=== PATIENT | male | born 1945 | race Caucasian/White ===

== ENCOUNTER 2016-09-01 10:23 | Inpatient (IN) | payer MEDICARE ==
[~2016-09-01] VITALS: Ht 172.7 cm; Wt 61.4 kg
[~2016-09-01 10:23] MED LIST: /PRAV20TA PO; ASPI81TA85 PO; ATEN25TA PO; CALC500C2 PO; COZA100T2 PO; GLUC1VL SC; GLUC4GMTAB PO; HUMA100I SC; INSULANT SC; LEVO100T4 PO; LEVO50TA7 PO; LOMO2.5T PO; LOMOTA PO; LOSA100T36 PO; PRED1TAB32 PO; TENO50TA PO; TUMS500C PO; TYLE325T5 PO; VITA200015 PO; VITA500C24 PO; VITAD1000T PO; VITMTA PO; ZINC220T2 PO; [UNRECOGNIZED DRUG - CODE] PO
[2016-09-01 12:50] VITALS: BP 163/77
[2016-09-01] MEDS ORDERED: CO Q100C10 PO (13:25)
[2016-09-01] MEDS ORDERED: CIPR500T89 PO (13:25)
[2016-09-01] MEDS ORDERED: VITMTA PO (13:25)
[2016-09-01] MEDS ORDERED: ASPI81TA13 PO (13:25)
[2016-09-01] MEDS ORDERED: LANTINJ4 SC (13:25)
[2016-09-01] MEDS ORDERED: ATEN100T PO (13:25)
[2016-09-01] MEDS ORDERED: CALC12502 PO (13:25)
[2016-09-01] MEDS ORDERED: VITA30004 PO (13:25)
[2016-09-01] MEDS ORDERED: PLAV75TA38 PO (13:25)
[2016-09-01] MEDS ORDERED: PRAV10TA PO (13:25)
[2016-09-01] MEDS ORDERED: FERR325T PO (13:25)
[2016-09-01] MEDS ORDERED: LEVO100T5 PO (13:25)
[2016-09-01] MEDS ORDERED: OXYC1TAB56 PO (13:25)
[2016-09-01] MEDS ORDERED: OXYC15TA76 PO (13:25)
[2016-09-01] MEDS ORDERED: OMEG10002 PO (13:25)
[2016-09-01] MEDS ORDERED: LOMO2.5T PO (13:25)
[2016-09-01] MEDS ORDERED: AMLO5TAB2 PO (13:25)
[2016-09-01] MEDS ORDERED: NOVOINJ3 SC (13:25)
[2016-09-01] MEDS ORDERED: PANT40TA2 PO (13:25)
[2016-09-01] MEDS ORDERED: GLUCOSE 4 GM CHEW TABLET PO PRN (14:30)
[2016-09-01] MEDS ORDERED: GLUCAGON FOR INJ 1 MG VIAL (J1610) SC PRN (14:30)
[2016-09-01] MEDS ORDERED: HumaLOG INSULIN (NovoLOG) PER UNIT SC SCH ×2 (14:30→17:30)
[2016-09-01] MEDS ORDERED: DEXTROSE 50% 50 ML SYRINGE IV PRN (14:30)
[2016-09-01] MEDS: diazePAM 5 MG TAB PO PRN (15:56)
--- NOTE | 2016-09-01 17:43 | HPEPDOC ---
Power Tool Repairer Note DATE OF ADMISSION: Sep 01, 2016 at 12:38 HISTORY OF PRESENT ILLNESS: 70-year-old male severe vasculopathy (peripheral vascular disease, insulin- dependent type 2 diabetes, severe cardiac atherosclerotic disease), right-hand- dominant, and history of right below the knee amputation/ BKA (in 2014) with full use of right prosthesis. He was found to have left toe gangrene and admitted on 08/20/2016. The infection progressed proximally and left above-the- knee amputation/AKA was performed on 08/21/2016, by Dr. Cruz Bergeron (vascular surgeon, at [facility]). During the acute hospital course, Martins was placed (08/21/16) for urinary retention and discontinued 08/27/16. The patient is significant decline from baseline functional and mobility status. He is now non-weight bearing to the left lower extremity and will require close acute medical care to management his multiple comorbidities, pain control and preprosthetic training. On 09/01/2016, the patient was stable for discharge to [facility] inpatient rehabilitation unit. PAST MEDICAL HISTORY: 1. History of ulcerative colitis, s/p Ileal pouch-anal anastomosis (J-pouch) 2. Peripheral vascular disease/atherosclerotic/coronary artery disease-CAD 3. s/p ME status post CABG ( in 2002) 4. Diabetes Type 2 insulin-dependent 5. Hypothyroidism 6. CKD type III 7. Hypertension 8. Exposure to agent orange 9. Hyperlipidemia 10. Depression 11. Osteoporosis 12. Trigger finger (2014, left middle finger) 13. Sensory neuronal hearing loss, bilateral tinnitus, uses hearing aids 14. History of nephrolithiasis PAST SURGICAL HISTORY: 1. Ileal pouch-anal anastomosis (IPAA)- 1997 2. CABG in 2002 3. Cataract 4. Appendectomy 5. Hernia repair ALLERGIES: See Below MEDICATIONS: See Below FAMILY HISTORY: Mother (Heart disease), Father (colon cancer), Brother ( peripheral vascular disease and type 2 diabetes), and Sister (liver disease- cirrhosis, type 2 diabetes, Crohns disease and leukemia) SOCIAL HISTORY: Retired laminate floor installer/LED Engin, lives with in a ranch-style home with 4 steps and ramp to enter. Former smoker, occasional alcohol use. Home has adaptive equipment provided by the DC-walk-in shower, hand-held shower , grab bar, shower chair, grab bar by toilet and wheelchair manual REVIEW OF SYSTEMS: General: no chills, +fatigue, no weight changes. 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 Ears, Nose & Throat: no sore throat or nasal discharge, chronic decreased hearing wears hearing aid. Cardiovascular: no chest pain, claudication, edema, syncopal episodes. Pulmonary: no cough, SOB, home O2, orthopnea. GI: chronic Ileal pouch-anal anastomosis, multiple abdominal hernias, no abdominal pain, GERD, N/V, C/D, BRBPR/tarry stools, incontinence. 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 Musculoskeletal: + pain and soreness J stent and proximal to residual left limb surgical site. No back/neck/joint pain. Neurological: Left residual limb diffuse hyperesthesia, phantom pain and sensation. No numbness, progressive weakness, recent seizures or CARTER. Hematological: No bleeding disorders. Skin: Chronic carpal papules dry and diffuse on back.(Well known and documented by [facility]) Psychiatric: history of depression, no recent suicidal or homicidal ideation. Patient appears motivated to start physical therapy and improve mobility. VITAL SIGNS: Temperature 98.0 degrees Fahrenheit, pulse 88, respiratory rate 20 , blood pressure 149/83, 97% saturation on room air. GENERAL: Well nourished, well developed, lying in bed, uncomfortable secondary to left residual limb pain HEENT: Normocephalic, atraumatic. No facial droop. PERRL, EOMI. wears corrective lenses CARDIOVASCULAR: S1, S2, regular rate and rhythm. No lower limb edema or calf tenderness in the right lower extremity (residual BKA) LUNGS: Clear to auscultation bilaterally, no wheezing, rhonchi or rales. ABDOMEN: Multiple well-healed scar tissue, mild abdominal distention, soft, non- tender, remote/chronic history of J-pouch. MUSCULOSKELETAL: Manual muscle testin/5 strength bilateral upper limbs in all major muscle groups, 5/5 right hip flexors and adductor, abductor and extension; 4/5 on the left lower limb secondary to pain. Sensation: Diffuse hyperesthesia distal left residual limb. Otherwise sensation intact to light touch in the bilateral upper and right lower extremity NEUROLOGICAL: Awake alert oriented 3. Patient is able to provide complete history of his chronic complicated medical problems . Able to follow commands without difficulty. Answers all questions appropriately. SKIN: Left residual limb, surgical incision site healing no signs of acute infection minimal redness no discharge tram and stitches are in place. However patient does have thickened swelling and hyperesthesia throughout the residual limb and components of phantom limb pain and sensation. LABORATORY DATA: Please see below. IMAGING:none FUNCTIONAL STATUS: Premorbid: Independent with ADLs and ambulation with right lower extremity prosthesis without use of assisted device, uses wheelchair in the community for long distances On Admission: Patient is currently nonweightbearing to the left lower extremity , able to weight-bear and ambulate with right lower extremity prosthesis. Total assist for transfers bathing and toileting and ambulation. High fall risk. Cognitively intact. ASSESSMENT AND PLAN: 70 years old male, multiple vascular pathology, history of right BKA with functional prosthesis developed gangrene to the left lower extremity resulting in left [id number] amputation (AKA, 08/21/16), now with significantly impaired functional mobility and ambulation. 1. Severe atherosclerotic peripheral vascular disease status post left AKA now with gait abnormality and dysfunctional ADLs. Patient is non-weight bearing on the left lower limb. Patient will undergo thorough physical and occupational therapy evaluations with daily intensive therapy and pre-prosthetic training. Rehabilitation nursing for wound care, bladder, bowel and medication management. Patient importance to avoid persistent hip flexion, importance of hip extension and abduction is discussed. 2. Pain: Postsurgical incisional pain, neuropathic pain, phantom limb pain and phantom limb sensation. Discussed neuro modulating bedside techniques such as tapping and mirror therapy. Wound infection precautions discussed with patient and patient advised to wear gloves when attempting these techniques. Patient pain has been poorly managed with omitted response to opioid pain medication. Patient is not currently on neuropathic agent. Start on trial of gabapentin 300 mg twice a day (renally dosed). Indicating indication side effect risk and benefits discussed with patient. Consider titrating to symptomatic treatment and limited by side effects. Continue with Percocet 1-2 tabs every 4 hours as needed for moderate to severe pain. May consider Valium 5-10 mg every 8 when necessary for severe muscle spasm. 3. Left residual limb: Daily wound care change dressing (sterile dry dressing over sterile Vaseline gauze), Ajith bandage for limb shaping and decreasing swelling. 4. Chronic/remote history of ulcerative colitis, s/p Ileal pouch-anal anastomosis (J-pouch). Continue on home regimen with Lomotil 1-2 tabs as needed. 5. Chronic hypertension continue with home antihypertensive medications, monitor blood pressure. 6. Peripheral vascular disease/atherosclerotic/coronary artery disease, CAD on home medication of aspirin, Plavix atenolol pravastatin 7. Diabetes Type 2 insulin-dependent continue on home insulin regimen, Lantus and sliding scale, monitor close levels. 8. CKD type III-avoid any nephrotoxic medication, monitor baseline creatinine input and output 9. Hypothyroidism continue on home levothyroxine 10. Diet: Diabetic/carbs control diet POST ADMISSION PHYSICIAN EVALUATION: On evaluation, this patient is highly motivated and has a good prognosis given premorbid functional status and prior success with prothesis to the right lower extremity. His history of progressive vascular pathology and multiple chronic medical problems will require acute medical monitoring. Patient will benefit with acute physical therapy for preprostatic training, pain management of neuropathic and phantom pain, wound care, acute physical therapy to improve in his range of motion, strength, bed mobility, transfers ambulation, stair training, balance and safety training. He will likely be able to tolerate 3 hours of therapy a day. PROGNOSIS: Good ESTIMATED LENGTH OF STAY: 14-21 days. Vital Signs Temperature 98.0 degrees Fahrenheit, pulse 88, respiratory rate 20, blood pressure 149/83, 97% saturation on room air. Laboratory Data Labs 24H Laboratory Tests 2 09/01/16 13:21: Bedside Glucose (Misc Panel) 205H FSBS Laboratory Tests Test 09/01/16 13:21 Range/Units Bedside Glucose (Misc Panel) 205 83-110 MG/DL Home Medications Scheduled (Co Q 10) 100 Mg Cap 100 MG PO DAILY (Reported) Amlodipine Besylate (Amlodipine Besylate) 5 Mg Tab 5 MG PO DAILY (Reported) Aspirin (Aspirin EC) 81 Mg Tab 81 MG PO DAILY (Reported) Atenolol (Atenolol) 100 Mg Tab 100 MG PO DAILY (Reported) Calcium Carbonate (Calcium Carbonate) 1,250 Mg Tab 1,250 MG PO DAILY (Reported) Cholecalciferol (Vitamin D3) 3,000 Unit Tab 6,000 UNIT PO DAILY (Reported) Ciprofloxacin HCl (Cipro) 500 Mg Tab 500 MG PO BID (Reported) Clopidogrel Bisulfate (Plavix) 75 Mg Tab 75 MG PO DAILY (Reported) Ferrous Sulfate (Ferrous Sulfate) 325 Mg Tab 325 MG PO DAILY (Reported) Insulin Aspart (Novolog Flexpen) 100 Unit/Ml Inj 1 DOSE SC AC (Reported) PER SLIDING SCALE Insulin Glargine (Lantus Solostar) 100 Unit/Ml Inj 15 UNITS SC QAM (Reported) Levothyroxine Sodium (Synthroid) 100 Mcg Tab 100 MCG PO QAM (Reported) Multivitamins *[facility] STOCKED* (Thera M Plus *[facility] STOCKED*) 1 Tab Tab 1 TAB PO DAILY (Reported) Al[place] 3 Polyunsat Fatty Acids (Almond-3 1000 mg) 1 Cap Cap 1 CAP PO DAILY ( Reported) Oxycodone HCl (Oxycodone HCl ER) 20 Mg Tab 20 MG PO Q12H (Reported) Pantoprazole Sodium (Pantoprazole Sodium) 40 Mg Tab 40 MG PO DAILY (Reported) Pravastatin Sod (Pravastatin Sodium) 10 Mg Tab 10 MG PO QHS (Reported) Scheduled PRN Diphenoxylate/Atropine (Lomotil 2.5-0.025 mg) 1 Tab Tab 2 TAB PO QID PRN PRN DIARRHEA (Reported) Oxycodone Hcl (Oxycodone HCl) 15 Mg Tab 15 MG PO Q6H PRN PRN PAIN (Reported) Allergies Coded Allergies: Atorvastatin (Verified Allergy, Unknown, MYALGIA, 12/11/12) Rofecoxib (Verified Allergy, Unknown, 12/11/12) Rosuvastatin (Verified Allergy, Unknown, MYALGIA, 12/11/12) Simvastatin (Verified Allergy, Unknown, MYALGIA, 12/11/12) Zolpidem (Verified Adverse Reaction, Unknown, HALLUCINATIONS, 12/11/12) MAC CUELLAR MD Sep 01, 2016 14:00
[2016-09-01] MEDS: HumaLOG INSULIN (NovoLOG) PER UNIT SC SCH ×2 (17:51→20:52)
[2016-09-01] MEDS: CIPROFLOXACIN 500 MG TAB PO SCH (17:51)
[2016-09-01] MEDS: oxyCODONE 5MG TAB PO PRN (17:52)
--- NOTE | 2016-09-01 18:34 | CR.PDOC ---
Consultation Consultation DATE OF CONSULTATION: 09-01-16 REFERRING PROVIDER: PRIMARY CARE PHYSICIAN: Dr. Monique Lopez REASON FOR CONSULTATION: Medical management HISTORY OF PRESENT ILLNESS: Mr. June is a pleasant 70 y/o male with past medical history of DM2, hyperlipidemia, osteoporosis, HTN, nephrolithiasis , ulcerative colitis s/p pancolectomy and insertion of J-pouch in 1998, hypothyroidism, CAD s/p CABG in 2002 and PCI with 5 stent placement in June 2016, hx of right leg DVT many years ago who presents to [facility] for PM&R after his left AKA 2015 in [place], [place] for atherosclerosis of LLE with gangrene secondary to PVD. ALLERGIES: Vioxx, lipitor, ambien HOME MEDICATIONS: amlodipine5 mg QD, asa 81 mg QD, atenolol 100 mg QD, calcium 500 mg QD, ciprofloxacin 500 mg BID, levothyroxine 100 mg QD, oxycodone 20 Q12 h , pravastatin 10 mg QD, vitamin D3, protonix 40 mg QD, gabapentin 600 mg BID PAST MEDICAL HISTORY: 1. CAD s/p CABG 2002 and stent placement Aug 2016 2. Osteoporosis 3.hyperlipidemia 4.HTN 5. nephrolithiasis 6.ulcerative colitis 7. hypothyroidism 8. DM2 9.erectile dysfunction 10. hx of DVT many years ago 11. secondary hyperparathyroidism 12. fibromyalgia PAST SURGICAL HISTORY: 1. PCI 5 stent placement 2015 2. CABG 2002 3.left AKA Aug 2016 4.lithotripsy procedures 5. pancolectomy with J-pouch insertion 1998 s/p contreras colectomy 6. abdominal hernia repair 1999 7. hx of left and right greater toe amputations FAMILY HISTORY: Father: colon cancer Mother: heart disease Siblings: Dm2 Children: Hereditary Diseases: Unexpected deaths due to medical reasons: SOCIAL HISTORY: Marital status and/or living arrangements: lives with Children: Employment: retired from [employer], prior w/ exposure to agent [place] in [place] Tobacco use:quit smoking cigarettes 1979, smoked .5-1 ppd for 15 yrs ETOH: denies Illicit drug use: denies IV drug use: denies Other relevant social factors: REVIEW OF SYSTEMS: CONSTITUTIONAL: sitting in bed, seems uncomfortable with pain in left AKA stump , pleasant, orientated, normal affect and demeanor HEENT: denies headache, change in vision, blurred vision, problems swallowing CARDIOVASCULAR: denies CP or palpitations, syncope RESPIRATORY: denies SOB or wheeze, denies cough GENITOURINARY: denies hematuria or dysuria MUSCULOSKELETAL: denies arthralgia, only source of pain is left AKA stump GASTROINTESTINAL: denies changes in BM, blood in stool or pain with BM SKIN: denies hair loss or recent skin changes, does have hx of numerous boils on his back from agent [place] as per pt., have healed and scared with hyper pigmentation NEUROLOGICAL: no hx of paralysis or seizures PSYCHIATRIC: normal affect, no hx of depression ENDOCRINE: denies night sweats HEMATOLOGIC/LYMPHATIC: denies ease of bruising or swollen lymph nodes ALLERGIC/IMMUNOLOGIC: denies hx of recurrent infections PHYSICAL EXAMINATION: VITAL SIGNS: Please see below. GENERAL APPEARANCE: AAOx3, pleasant, seems to be in pain from left AKA stump, affect is appropriate, eye contact is maintained HEENT: PERRLA, NCAT, nares patent b/l, moist mucus membranes, neck supple, thyroid midline RESPIRATORY: good air expansion b/l, faint wheeze in RUL otherwise CTA b/l, no rhonchi or rales appreciated CARDIOVASCULAR: normal s1 and s2, no murmurs appreciated, RRR ABDOMEN: soft, non tender, non distended EXTREMITIES: intact, dry, back shows number hyper pigmented areas of past pusutles that have since scarred over NEUROLOGICAL: no focal deficits appreciated PSYCHIATRIC: normal affect LABORATORY DATA: Please see below. ASSESSMENT/PLAN: 1. left AKA- pain mgmt and PT will be per PM&R mgmt 2. CAD- s/p CABG and PCI w/ stent placement- continue ASA and Plavix therapy 3.HTN- continue with pts beta martin and amlodipine, continue to monitor 4.CKD- have ordered BMP for AM to evaluate kidney function, renal dose medicines 5.hypothyroidism- continue home levothyroxine 6. dyslipidemia- continue home statin therapy 7. PAD - will continue home ASA and statin therapy 9. DM2- basal and meal time coverage insulin- monitor fingersticks 10 DVT prophylaxis- pt's right LE DVT was "many, many years ago" as per pt., greater than 1 year. Will not begin anticoagulation for this,-early ambulation as per PM&R. Vital Signs/I&O Vital Signs Date Time Temp Pulse Resp B/P Pulse Ox O2 Delivery O2 Flow Rate FiO2 09/01/16 17:52 18 09/01/16 14:00 Room Air 09/01/16 12:50 97.5 76 163/77 97 Laboratory Data Labs 24H Laboratory Tests 2 09/01/16 13:21: Bedside Glucose (Misc Panel) 205H 09/01/16 16:50: Bedside Glucose (Misc Panel) 178H FSBS Laboratory Tests Test 09/01/16 13:21 09/01/16 16:50 Range/Units Bedside Glucose (Misc Panel) 205 178 83-110 MG/DL Allergies Coded Allergies: Atorvastatin (Verified Allergy, Unknown, MYALGIA, 12/11/12) Rofecoxib (Verified Allergy, Unknown, 12/11/12) Rosuvastatin (Verified Allergy, Unknown, MYALGIA, 12/11/12) Simvastatin (Verified Allergy, Unknown, MYALGIA, 12/11/12) Zolpidem (Verified Adverse Reaction, Unknown, HALLUCINATIONS, 12/11/12) Home Medications Scheduled (Co Q 10) 100 Mg Cap 100 MG PO DAILY (Reported) Amlodipine Besylate (Amlodipine Besylate) 5 Mg Tab 5 MG PO DAILY (Reported) Aspirin (Aspirin EC) 81 Mg Tab 81 MG PO DAILY (Reported) Atenolol (Atenolol) 100 Mg Tab 100 MG PO DAILY (Reported) Calcium Carbonate (Calcium Carbonate) 1,250 Mg Tab 1,250 MG PO DAILY (Reported ) Cholecalciferol (Vitamin D3) 3,000 Unit Tab 6,000 UNIT PO DAILY (Reported) Ciprofloxacin HCl (Cipro) 500 Mg Tab 500 MG PO BID (Reported) Clopidogrel Bisulfate (Plavix) 75 Mg Tab 75 MG PO DAILY (Reported) Ferrous Sulfate (Ferrous Sulfate) 325 Mg Tab 325 MG PO DAILY (Reported) Insulin Aspart (Novolog Flexpen) 100 Unit/Ml Inj 1 DOSE SC AC (Reported) PER SLIDING SCALE Insulin Glargine (Lantus Solostar) 100 Unit/Ml Inj 15 UNITS SC QAM (Reported) Levothyroxine Sodium (Synthroid) 100 Mcg Tab 100 MCG PO QAM (Reported) Multivitamins *[facility] STOCKED* (Thera M Plus *[facility] STOCKED*) 1 Tab Tab 1 TAB PO DAILY (Reported) [place] 3 Polyunsat Fatty Acids ([place]-3 1000 mg) 1 Cap Cap 1 CAP PO DAILY ( Reported) Oxycodone HCl (Oxycodone HCl ER) 20 Mg Tab 20 MG PO Q12H (Reported) Pantoprazole Sodium (Pantoprazole Sodium) 40 Mg Tab 40 MG PO DAILY (Reported) Pravastatin Sod (Pravastatin Sodium) 10 Mg Tab 10 MG PO QHS (Reported) Scheduled PRN Diphenoxylate/Atropine (Lomotil 2.5-0.025 mg) 1 Tab Tab 2 TAB PO QID PRN PRN DIARRHEA (Reported) Oxycodone Hcl (Oxycodone HCl) 15 Mg Tab 15 MG PO Q6H PRN PRN PAIN (Reported) GME ATTESTATION GME ATTESTATION My preceptor for this patient encounter was physically present in the building during the encounter and was fully available. As needed, all aspects of the patient interview, examination, medical decision making process, and medical care plan development were reviewed and approved by the preceptor. Preceptor is aware and concurs with the plan as stated in the body of this note and will attest to such by his/her cosignature. ATTENDING NOTE Attending Note I have both independently examined this patient as well as reviewed the consultation. I have discussed in detail with the resident the findings and plan of treatment as documented in the residents note. I will continue to follow the patient and offer further guidance to the patients care as necessary during this hospital stay. JENI Miller MDVT-1 Sep 01, 2016 18:34 OSWALDO ARREDONDO MD Sep 02, 2016 06:14
[2016-09-01 20:00] VITALS: BP 155/72
[2016-09-01] MEDS: PRAVASTATIN 10 MG TAB PO SCH (20:42)
[2016-09-01] MEDS: GABAPENTIN 300 MG CAP PO SCH (20:42)
[2016-09-01] MEDS: ASCORBIC ACID 500 MG TAB PO SCH (20:43)
[2016-09-01] MEDS: oxyCODONE 20 MG CR TAB PO SCH (20:43)
[2016-09-01] MEDS: PYRIDOXINE 50 MG TAB PO SCH (20:43)
[2016-09-02 06:00] VITALS: BP 180/84
[2016-09-02] MEDS: LEVOTHYROXINE 0.1 MG TAB (100 MCG) PO SCH (06:09)
[2016-09-02] MEDS: LOMOTIL 2.5MG/0.025MG TABLET PO PRN (06:09)
[2016-09-02] MEDS: CIPROFLOXACIN 500 MG TAB PO SCH ×2 (06:09→17:12)
[2016-09-02] MEDS: oxyCODONE 5MG TAB PO PRN ×2 (06:10→12:41)
[2016-09-02 06:40] LABS: MEAN CORPUSCULAR HGB CONC 32.1 g/dl (32.0-36.5); RED CELL DISTRIBUTION WIDTH 15.8 % (11.5-14.5); WHITE BLOOD COUNT 10.2 K/mm3 (4.0-10.0)
[2016-09-02 07:04] LABS: CALCIUM LEVEL 8.3 MG/DL (8.8-10.2); CREATININE FOR GFR 1.77 MG/DL (0.70-1.30); GLOMERULAR FILTRATION RATE 40.6 (>42); MAGNESIUM LEVEL 1.6 MG/DL (1.8-2.4)
[2016-09-02 08:20] VITALS: BP 161/73
[2016-09-02] MEDS: HumaLOG INSULIN (NovoLOG) PER UNIT SC SCH ×4 (08:29→21:00)
[2016-09-02] MEDS: VITAMIN D 1,000 INTERNATIONAL UNITS TABLET PO SCH (08:30)
[2016-09-02] MEDS: LEVEMIR (INSULIN DETEMIR) 1 UNITS/0.01ML SC SCH (08:30)
[2016-09-02] MEDS: MULTIVITAMINS/MINERALS THERAP 1 TAB PO SCH (08:31)
[2016-09-02] MEDS: FERROUS SULFATE 325MG TAB PO SCH (08:31)
[2016-09-02] MEDS: PANTOPRAZOLE 40MG TAB (PROTONIX) PO SCH (08:31)
[2016-09-02] MEDS: GABAPENTIN 300 MG CAP PO SCH ×2 (08:31→21:39)
[2016-09-02] MEDS: PYRIDOXINE 50 MG TAB PO SCH ×2 (08:31→21:39)
[2016-09-02] MEDS: ASCORBIC ACID 500 MG TAB PO SCH ×2 (08:31→21:39)
[2016-09-02] MEDS: ATENOLOL 50 MG TAB PO SCH (08:31)
[2016-09-02] MEDS: CLOPIDOGREL 75 MG TAB PO SCH (08:31)
[2016-09-02] MEDS: OYSTER SHELL CALCIUM 500 MG TAB PO SCH (08:31)
[2016-09-02] MEDS: ASPIRIN 81 MG ENTERIC TAB PO SCH (08:31)
[2016-09-02] MEDS: OMEGA-3 1050MG CAPSULE PO SCH (08:31)
[2016-09-02] MEDS: amLODIPine 5 MG TAB PO SCH (08:32)
[2016-09-02] MEDS: oxyCODONE 20 MG CR TAB PO SCH ×2 (08:32→21:38)
[2016-09-02] MEDS ORDERED: MULTIVITAMINS/MINERALS THERAP 1 TAB PO SCH (09:00)
[2016-09-02] MEDS: LIDOCAINE 5% (LIDODERM) PATCH TD SCH (09:54)
[2016-09-02] MEDS: diazePAM 5 MG TAB PO PRN (10:40)
--- NOTE | 2016-09-02 12:08 | IPNPDOC ---
Assessment/Plan Date Seen The patient was seen on 09/02/16. Problems Problems: (1) Above knee amputation of left lower extremity Status: Acute Problem Text: * Management as per PMR * PT/OT * Pain control * Disposition as per PMR (2) IDDM (insulin dependent diabetes mellitus) Status: Chronic Problem Text: * Controlled carbohydrate diet * Sliding scale insulin * Levemir * A1c noted to be 6.6 (3) Hyperlipemia Status: Chronic Problem Text: * Continue statin (4) CAD (coronary artery disease) of bypass graft Status: Chronic Problem Text: * Continue atenolol/aspirin/Plavix (5) PAD (peripheral artery disease) Status: Chronic (6) HTN (hypertension) Status: Chronic Problem Text: * Continue amlodipine/atenolol (7) Hypothyroid Status: Chronic Problem Text: * Continue by mouth supplement Plan / VTE VTE Prophylaxis Ordered?: No (ambulation) Subjective Review of Systems CC/HPI The patient is a 70-year-old male admitted with a reason for visit of Left Aka. Events since last encounter Pt with no complaints. States doing well. ENT: Denies: Dysphagia, Ear Pain, Head Aches Pulmonary: Denies: Cough, Dyspnea Cardiovascular: Denies: Chest Pain, Lt Headedness, Orthopnea, Palpitations, Paroxysmal Noc. Dyspnea Gastrointestinal: Denies: Abdominal Pain, Diarrhea, Nausea, Vomiting Genitourinary: Denies: Dysuria, Frequency, Incontinence, Retention Objective Physical Examination General Exam: Positive: Alert Eye Exam: Positive: PERRLA ENT Exam: Positive: Atraumatic Chest Exam: Positive: Clear to auscultation, Normal air movement Heart Exam: Positive: Normal S1, Normal S2, Rate Normal, Regular Rhythm, Negative: Murmurs, Rubs Abdomen Exam: Positive: Normal bowel sounds, Soft, Negative: Hepatospenomegaly, Tenderness Extremity Exam: Positive: Other (left AKA, Rt BKA. ) Skin Exam: Positive: Nl turgor and temperature Vital Signs/I&O Vital Signs Date Time Temp Pulse Resp B/P Pulse Ox O2 Delivery O2 Flow Rate FiO2 09/02/16 08:32 20 09/02/16 08:32 74 161/73 09/02/16 06:00 95.7 99 Room Air I&O- Last 24 Hours up to 6 AM 12/27/16 05:59 Intake Total 120 ml Output Total 200 ml Balance -80 ml Laboratory Data Labs 24H Laboratory Tests 2 09/01/16 13:21: Bedside Glucose (Misc Panel) 205H 09/01/16 16:50: Bedside Glucose (Misc Panel) 178H 09/01/16 20:23: Bedside Glucose (Misc Panel) 150H 09/02/16 06:15: Urine Amorphous Sediment , Urine Appearance HAZY, Urine Color YELLOW, Urine pH 5.0, Urine Specific [place] 1.009, Urine Protein 1+H, Urine Glucose (UA) NEGATIVE, Urine Ketones NEGATIVE, Urine Urobilinogen 0.2, Urine Bilirubin NEGATIVE, Urine Leukocyte Esterase 1+H, Urine Bacteria (Auto) 1+H, Urine Blood NEGATIVE, Urine Calcium Carbonate Cryst(Auto) , Urine Calcium Oxalate Cryst ( Auto) , Urine Calcium Phosphate Jenna (Auto) , Urine Cellular Casts , Urine Cystine Crystals , Urine Granular Casts (Auto) , Urine Hyaline Casts (Auto) 0, Urine Leucine Crystals , Urine Mucus (Auto) SMALL, Urine Nitrite NEGATIVE, Urine Oval Fat Bodies (Auto) , Urine RBC (Auto) 5H, Urine Renal Epithelial Cells , Urine Sperm (Auto) , Urine Squamous Epithelial Cells 0, Urine Transitional Epithelial Cells , Urine Trichomonas (Auto) , Urine Triple Phosphate Cryst (Auto) , Urine Tyrosine Crystals , Urine Uric Acid Crystals ( Auto) , Urine WBC (Auto) 41H, Urine Waxy Casts (Auto) , Urine Yeast-Like Cells ( Auto) 09/02/16 06:20: Anion Gap 9, Blood Urea Nitrogen 27H, Creatinine 1.77H, Sodium Level 146H, Potassium Level 4.0, Chloride Level 112H, Carbon Dioxide Level 25, Calcium Level 8.3L, Estimated Mean Plasma Glucose 143H, Glomerular Filtration Rate 40.6L , Hemoglobin A1c 6.6H, Magnesium Level 1.6L 09/02/16 11:17: Bedside Glucose (Misc Panel) 175H CBC/BMP Laboratory Tests 09/02/16 06:20 Calcium Level 8.3 L, Red Blood Count 3.71 L, Mean Corpuscular Volume 84.0, Mean Corpuscular Hemoglobin 27.0, Mean Corpuscular Hemoglobin Concent 32.1, Red Cell Distribution Width 15.8 H Kassandra Jean Sep 02, 2016 12:08
[2016-09-02 14:00] VITALS: BP 127/84
[2016-09-02 20:00] VITALS: BP 140/78
[2016-09-02] MEDS: PRAVASTATIN 10 MG TAB PO SCH (21:39)
[2016-09-02] MEDS: **NOTE PATIENT COMMENT** MISC XX SCH (21:44)
[2016-09-03] MEDS: oxyCODONE 5MG TAB PO PRN ×3 (01:20→22:19)
[2016-09-03 06:00] VITALS: BP 156/69
[2016-09-03] MEDS: CIPROFLOXACIN 500 MG TAB PO SCH ×2 (06:09→17:37)
[2016-09-03] MEDS: LEVOTHYROXINE 0.1 MG TAB (100 MCG) PO SCH (06:09)
[2016-09-03] MEDS: HumaLOG INSULIN (NovoLOG) PER UNIT SC SCH ×4 (08:39→20:20)
[2016-09-03] MEDS: PANTOPRAZOLE 40MG TAB (PROTONIX) PO SCH (08:40)
[2016-09-03] MEDS: PYRIDOXINE 50 MG TAB PO SCH ×2 (08:40→20:18)
[2016-09-03] MEDS: OMEGA-3 1050MG CAPSULE PO SCH (08:40)
[2016-09-03] MEDS: LIDOCAINE 5% (LIDODERM) PATCH TD SCH (08:40)
[2016-09-03] MEDS: ASPIRIN 81 MG ENTERIC TAB PO SCH (08:40)
[2016-09-03] MEDS: OYSTER SHELL CALCIUM 500 MG TAB PO SCH (08:40)
[2016-09-03] MEDS: VITAMIN D 1,000 INTERNATIONAL UNITS TABLET PO SCH (08:40)
[2016-09-03] MEDS: ATENOLOL 50 MG TAB PO SCH (08:40)
[2016-09-03] MEDS: CLOPIDOGREL 75 MG TAB PO SCH (08:40)
[2016-09-03] MEDS: amLODIPine 5 MG TAB PO SCH (08:41)
[2016-09-03] MEDS: oxyCODONE 20 MG CR TAB PO SCH ×2 (08:41→20:19)
[2016-09-03] MEDS: MULTIVITAMINS/MINERALS THERAP 1 TAB PO SCH (08:41)
[2016-09-03] MEDS: GABAPENTIN 300 MG CAP PO SCH ×2 (08:41→20:19)
[2016-09-03] MEDS: FERROUS SULFATE 325MG TAB PO SCH ×2 (08:41→20:19)
[2016-09-03] MEDS: ASCORBIC ACID 500 MG TAB PO SCH ×2 (08:41→20:19)
[2016-09-03] MEDS: LEVEMIR (INSULIN DETEMIR) 1 UNITS/0.01ML SC SCH (08:42)
--- NOTE | 2016-09-03 10:30 | IPNPDOC ---
[employer] Progress Note DATE OF SERVICE: 09/03/2016 DATE OF ADMISSION: Sep 01, 2016 at 12:38 INPATIENT REHABILITATION ADMISSION DAY: #2 PAST MEDICAL HISTORY: 1. History of ulcerative colitis, s/p Ileal pouch-anal anastomosis (J-pouch) 2. Peripheral vascular disease/atherosclerotic/coronary artery disease-CAD 3. s/p NV status post CABG ( in 2002) 4. Diabetes Type 2 insulin-dependent 5. Hypothyroidism 6. CKD type III 7. Hypertension 8. Exposure to agent orange 9. Hyperlipidemia 10. Depression 11. Osteoporosis 12. Trigger finger (2014, left middle finger) 13. Sensory neuronal hearing loss, bilateral tinnitus, uses hearing aids 14. History of nephrolithiasis PAST SURGICAL HISTORY: 1. Ileal pouch-anal anastomosis (IPAA)- 1997 2. CABG in 2002 3. Cataract 4. Appendectomy 5. Hernia repair ALLERGIES: See Below MEDICATIONS ON ADMISSION: Reviewed, see below. SUBJECTIVE: Patient seen in the morning. Sitting upright in bed. He reports improvement of his left leg pain, but continues to have severe sharp and aching pain to touch and at the surgical incision site. Otherwise no new complaints. Discussed importance and techniques of prevent hip flexion contracture. VITAL SIGNS: Temperature 98, pulse 77, respiratory rate 20, blood pressure 156/ 69, pulse oximetry 97 % saturation on room air. PHYSICAL EXAMINATION: GENERAL: Well nourished, well developed, lying in bed, appears uncomfortable at times especially with movement HEENT: Normocephalic, atraumatic. No facial droop. PERRL, EOMI. wears corrective lenses CARDIOVASCULAR: S1, S2, regular rate and rhythm. No lower limb edema or calf tenderness in the right lower extremity (residual BKA) LUNGS: Clear to auscultation bilaterally, no wheezing, rhonchi or rales. ABDOMEN: Multiple well-healed scar tissue, mild abdominal distention, soft, non- tender, remote/chronic history of J-pouch. MUSCULOSKELETAL: Manual muscle testin/5 strength bilateral upper limbs in all major muscle groups, 5/5 right hip flexors and adductor, abductor and extension; 4/5 on the left lower limb secondary to pain. Sensation: Diffuse hyperesthesia distal left residual limb. Otherwise sensation intact to light touch in the bilateral upper and right lower extremity NEUROLOGICAL: Awake alert oriented 3. Patient is able to provide complete history of his chronic complicated medical problems . Able to follow commands without difficulty. Answers all questions appropriately. SKIN: Left residual limb, surgical incision site healing no signs of acute infection minimal redness no discharge tram and stitches are in place. However patient does have thickened swelling and hyperesthesia throughout the residual limb and components of phantom limb pain and sensation. LABORATORY DATA: Reviewed, see below. IMAGING:none ASSESSMENT AND PLAN: 70 years old male, multiple vascular pathology, history of right BKA with functional prosthesis developed gangrene to the left lower extremity resulting in left [id number] amputation (AKA, 08/21/16), now with significantly impaired functional mobility and ambulation. 1. Severe atherosclerotic peripheral vascular disease status post left AKA now with gait abnormality and dysfunctional ADLs. Patient is non-weight bearing on the left lower limb. Patient will undergo thorough physical and occupational therapy evaluations with daily intensive therapy and pre-prosthetic training. Rehabilitation nursing for wound care, bladder, bowel and medication management. Monitor and encourage left hip extension, recommend prone positioning while in bed. 2. Pain: Postsurgical incisional pain, neuropathic pain, phantom limb pain and phantom limb sensation. - improving with current pain medication. - bedside desensitization techniques and residual limb wrapping performed at the bedside with nurse and PT. - recommend patient have access to gloves at the bedside, continue tapping technique and mirror therapy - continue Gabapentin 300 mg twice a day (renally dosed, started 09/03/16); Percocet 1-2 tabs every 4 hours as needed for moderate to severe pain; Valium 5- 10 mg every 8 when necessary for severe muscle spasm. 3. Left residual limb: Daily wound care change dressing (sterile dry dressing over sterile Vaseline gauze), Ajith bandage for limb shaping and decreasing swelling. 4. Chronic/remote history of ulcerative colitis, s/p Ileal pouch-anal anastomosis (J-pouch). Continue on home regimen with Lomotil 1-2 tabs as needed. 5. Chronic hypertension continue with home antihypertensive medications, monitor blood pressure. 6. Peripheral vascular disease/atherosclerotic/coronary artery disease, CAD continue on home medication of aspirin, Plavix atenolol pravastatin 7. Diabetes Type 2 insulin (HbA1c A1c 6.6)-dependent continue on home insulin regimen dose- Levemir and sliding scale, monitor close levels. 8. CKD type III-avoid any nephrotoxic medication, monitor baseline creatinine input and output 9. Hypothyroidism continue on home levothyroxine 10. Acute blood loss anemia- low H/H 07/07.2, likely post-surgical. - pending iron study work-up, as per medicine consult 11. Hyperlipidemia continue on statin 12. Diet: Diabetic/carbs control diet INTERDISCIPLINARY CARE AND DISCHARGE PLANNIN. The patient continues to require 24-hour rehabilitation nursing and physician management 2.The patient continues to benefit from current level of interdisciplinary care 3. Post discharge follow-up medical appointments: Orthopedics, Cardiology, and PMD 4. Team conference dates:09/02/16 5. Anticipated discharge date: 09/18/2016 6. Anticipated discharge location: Home 7. Anticipated discharge needs: HHS: PT, OT, and RN. Equipment needs: pending Vital Signs Vital Sign - Last 24 Hours 09/02/16 09/02/16 09/02/16 09/02/16 12:41 14:00 20:00 21:00 Temp 97.9 97.8 Pulse 74 77 Resp 20 20 18 B/P 127/84 140/78 Pulse Ox 97 97 O2 Delivery Room Air Room Air 09/02/16 09/03/16 09/03/16 09/03/16 21:38 01:20 01:54 06:00 Temp 97.9 Pulse 77 Resp 18 20 18 18 B/P 156/69 Pulse Ox 95 09/03/16 09/03/16 09/03/16 09/03/16 08:40 08:41 08:41 10:00 Pulse 77 77 Resp 20 20 B/P 156/69 156/69 Laboratory Data Labs 24H Laboratory Tests 2 09/02/16 11:17: Bedside Glucose (Misc Panel) 175H 09/02/16 16:37: Bedside Glucose (Misc Panel) 160H 09/02/16 20:06: Bedside Glucose (Misc Panel) 240H 09/03/16 05:39: Bedside Glucose (Misc Panel) 193H FSBS Laboratory Tests Test 09/02/16 11:17 09/02/16 16:37 09/02/16 20:06 09/03/16 05:39 Range/Units Bedside Glucose (Misc Panel) 175 160 240 193 83-110 MG/DL Allergies Allergies: Coded Allergies: Atorvastatin (Verified Allergy, Unknown, MYALGIA, 12/11/12) Rofecoxib (Verified Allergy, Unknown, 12/11/12) Rosuvastatin (Verified Allergy, Unknown, MYALGIA, 12/11/12) Simvastatin (Verified Allergy, Unknown, MYALGIA, 12/11/12) Zolpidem (Verified Adverse Reaction, Unknown, HALLUCINATIONS, 12/11/12) Current Medications Current Medications Current Medications Amlodipine Besylate (Norvasc) 5 mg DAILY PO Last administered on 09/03/16 08: 41; Start 09/02/16 at 09:00; Stop 10/02/16 at 08:59 Ascorbic Acid (Vitamin C) 500 mg BID PO Last administered on 09/03/16 08:41; Start 09/01/16 at 21:00; Stop 10/01/16 at 20:59 Aspirin (Ecotrin) 81 mg DAILY PO Last administered on 09/03/16at 08:40; Start 09/02/16 at 09:00; Stop 10/02/16 at 08:59 Atenolol (Tenormin) 100 mg DAILY PO Last administered on 09/03/16at 08:40; Start 09/02/16 at 09:00; Stop 10/02/16 at 08:59 Calcium Carbonate (Oscal) 500 mg DAILY PO Last administered on 09/03/16at 08:40 ; Start 09/02/16 at 09:00; Stop 10/02/16 at 08:59 Ciprofloxacin (Cipro) 500 mg BID@06,18 PO Last administered on 09/03/16at 06:09 ; Start 09/01/16 at 18:00; Stop 09/08/16 at 17:59 Clopidogrel Bisulfate (PLAVix) 75 mg DAILY PO Last administered on 09/03/16at 08:40; Start 09/02/16 at 09:00; Stop 10/02/16 at 08:59 Dextrose (Dextrose 50%) 25 ml ASDIRECTED PRN IV SEE LABEL COMMENTS; Start at 14:30; Stop 10/01/16 at 14:29 Diazepam (Valium) 5 mg Q6HP PRN PO spasm/tightness Last administered on at 10:40; Start 09/01/16 at 14:00; Stop 09/08/16 at 13:59 Diphenoxylate HCl/ Atropine (Lomotil 2.5mg/ 0.025mg) 1 ea QID PRN PO DIARRHEA Last administered on 09/02/16at 06:09; Start 09/01/16 at 14:00; Stop 09/08/16 at 13:59 Diphenoxylate HCl/ Atropine (Lomotil 2.5mg/ 0.025mg) 2 ea QID PRN PO SEVERE DIARRHEA; Start 09/01/16 at 14:45; Stop 09/08/16 at 14:44 Ferrous Sulfate (Ferrous Sulfate) 325 mg DAILY PO Last administered on at 08:41; Start 09/02/16 at 09:00; Stop 10/02/16 at 08:59 Fish Oil (Atl[place]-3 (1050mg)) 1 ea DAILY PO Last administered on 09/03/16at 08:40 ; Start 09/02/16 at 09:00; Stop 10/02/16 at 08:59 Gabapentin (Neurontin) 600 mg BID PO Last administered on 09/03/16at 08:41; Start 09/01/16 at 21:00; Stop 10/01/16 at 20:59 Glucagon (Glucagon) 1 mg ASDIRECTED PRN SC SEE LABEL COMMENTS; Start 09/01/16 at 14:30; Stop 10/01/16 at 14:29 Glucose (Glucose) 16 GM ASDIRECTED PRN PO SEE LABEL COMMENTS; Start 09/01/16 at 14:30; Stop 10/01/16 at 14:29 Home Med (Med Rec Complete!) ASDIRECTED XX ; Start 09/01/16 at 13:30; Stop at 13:33; Status DC Insulin Detemir (Levemir Insulin) 15 units QAM SC Last administered on at 08:42; Start 09/02/16 at 09:00; Stop 10/02/16 at 08:59 Insulin Human Lispro (HumaLOG INSULIN) 1 units AC SC ; Start 09/01/16 at 17:30 ; Stop 09/01/16 at 17:30; Status DC Insulin Human Lispro (HumaLOG INSULIN) SEE PROTOCOL TABLE Q6H SC ; Start at 14:30; Stop 09/01/16 at 14:33; Status DC Insulin Human Lispro (HumaLOG INSULIN) See Protocol Table AC SC Last administered on 09/03/16at 08:39; Start 09/01/16 at 17:30; Stop 10/01/16 at 17: 29 Insulin Human Lispro (HumaLOG INSULIN) See Protocol Table QHS SC ; Start at 21:00; Stop 10/01/16 at 20:59 Levothyroxine Sodium (Synthroid) 0.1 mg DAILY@06 PO Last administered on at 06:09; Start 09/02/16 at 06:00; Stop 10/02/16 at 05:59 Lidocaine (Lidoderm Patch) 2 patch DAILY TD Last administered on 09/03/16at 08: 40; Start 09/02/16 at 09:00; Stop 10/02/16 at 08:59 Multivitamins (Theragram-M) 1 tab DAILY PO Last administered on 09/03/16at 08: 41; Start 09/02/16 at 09:00; Stop 10/02/16 at 08:59 Multivitamins (Theragram-M) 1 tab DAILY PO ; Start 09/02/16 at 09:00; Stop at 08:59; Status UNV Non-Formulary Medication ( See Comment Field Below ) REMOVE LIDODERM PATCH DAILY@21 XX Last administered on 09/02/16at 21:44; Start 09/02/16 at 21:00; Stop 10/02/16 at 20:59 Oxycodone HCl (OxyCONTIN) 20 mg Q12H PO Last administered on 09/03/16at 08:41; Start 09/01/16 at 21:00; Stop 09/08/16 at 20:59 Oxycodone HCl (Roxicodone, Oxyir) 15 mg Q6H PRN PO PAIN Last administered on at 10:00; Start 09/01/16 at 14:00; Stop 09/08/16 at 13:59 Pantoprazole Sodium (Protonix) 40 mg DAILY PO Last administered on 09/03/16at 08:40; Start 09/02/16 at 09:00; Stop 10/02/16 at 08:59 Pravastatin Sodium (Pravachol) 10 mg QHS PO Last administered on 09/02/16at 21: 39; Start 09/01/16 at 21:00; Stop 10/01/16 at 20:59 Pyridoxine HCl (Vitamin B6) 100 mg BID PO Last administered on 09/03/16at 08:40 ; Start 09/01/16 at 21:00; Stop 10/01/16 at 20:59 Vitamin D (Vitamin D) 6,000 units DAILY PO Last administered on 09/03/16at 08: 40; Start 09/02/16 at 09:00; Stop 10/02/16 at 08:59 MAC CUELLAR MD Sep 03, 2016 10:30
[2016-09-03 13:01] LABS: MEAN CORPUSCULAR HEMOGLOBIN 26.4 pg (27.0-33.0); MEAN CORPUSCULAR HGB CONC 31.5 g/dl (32.0-36.5); MEAN CORPUSCULAR VOLUME 83.6 fl (80.0-96.0); RED CELL DISTRIBUTION WIDTH 14.9 % (11.5-14.5); WHITE BLOOD COUNT 9.4 K/mm3 (4.0-10.0)
--- NOTE | 2016-09-03 13:13 | IPNPDOC ---
Assessment/Plan Date Seen The patient was seen on 09/03/16. Problems Problems: (1) Above knee amputation of left lower extremity Status: Acute Problem Text: * Management as per PMR * PT/OT * Pain control * Disposition as per PMR (2) IDDM (insulin dependent diabetes mellitus) Status: Chronic Problem Text: * Controlled carbohydrate diet * Sliding scale insulin * Levemir * A1c noted to be 6.6 * BS this am 159 (3) Hyperlipemia Status: Chronic Problem Text: * Continue statin (4) CAD (coronary artery disease) of bypass graft Status: Chronic Problem Text: * Continue atenolol/aspirin/Plavix (5) PAD (peripheral artery disease) Status: Chronic (6) HTN (hypertension) Status: Chronic Problem Text: * Continue amlodipine/atenolol (7) Hypothyroid Status: Chronic Problem Text: * Continue by mouth supplement (8) Anemia Status: Acute Problem Text: * Continue with iron supplement * Iron studies pending * Vitamin B12/Martins pending (9) Diabetic neuropathy with neurologic complication Status: Chronic Problem Text: * Patient remains on gabapentin Plan / VTE VTE Prophylaxis Ordered?: No (ambulation) Subjective Review of Systems CC/HPI The patient is a 70-year-old male admitted with a reason for visit of Left Aka. Events since last encounter pt with no new issues. ENT: Denies: Dysphagia, Ear Pain, Head Aches Pulmonary: Denies: Cough, Dyspnea Cardiovascular: Denies: Chest Pain, Lt Headedness, Orthopnea, Palpitations, Paroxysmal Noc. Dyspnea Gastrointestinal: Denies: Abdominal Pain, Diarrhea, Nausea, Vomiting Genitourinary: Denies: Dysuria, Frequency, Incontinence, Retention Objective Physical Examination General Exam: Positive: Alert Eye Exam: Positive: PERRLA ENT Exam: Positive: Atraumatic Chest Exam: Positive: Clear to auscultation, Normal air movement Heart Exam: Positive: Normal S1, Normal S2, Rate Normal, Regular Rhythm, Negative: Murmurs, Rubs Abdomen Exam: Positive: Normal bowel sounds, Soft, Negative: Hepatospenomegaly, Tenderness Extremity Exam: Positive: Other (left AKA, Rt BKA. ) Skin Exam: Positive: Nl turgor and temperature Vital Signs/I&O Vital Signs Date Time Temp Pulse Resp B/P Pulse Ox O2 Delivery O2 Flow Rate FiO2 09/03/16 10:30 20 09/03/16 08:41 77 156/69 09/03/16 06:00 97.9 95 09/02/16 21:00 Room Air I&O- Last 24 Hours up to 6 AM 09/03/16 05:59 Intake Total 720 ml Output Total 0 ml Balance 720 ml Laboratory Data Labs 24H Laboratory Tests 2 09/02/16 16:37: Bedside Glucose (Misc Panel) 160H 09/02/16 20:06: Bedside Glucose (Misc Panel) 240H 09/03/16 05:39: Bedside Glucose (Misc Panel) 193H 09/03/16 11:26: Bedside Glucose (Misc Panel) 159H 09/03/16 12:42: CBC/BMP Laboratory Tests 09/03/16 12:42 Red Blood Count 3.91 L, Mean Corpuscular Volume 83.6, Mean Corpuscular Hemoglobin 26.4 L, Mean Corpuscular Hemoglobin Concent 31.5 L, Red Cell Distribution Width 14.9 H FSBS Laboratory Tests Test 09/02/16 16:37 09/02/16 20:06 09/03/16 05:39 09/03/16 11:26 Range/Units Bedside Glucose (Misc Panel) 160 240 193 159 83-110 MG/DL Kassandra Jean Sep 03, 2016 13:13
[2016-09-03 13:38] LABS: FOLATE > 24.0 NG/ML (>5.4); VITAMIN B12 LEVEL 795 PG/ML (247-911)
[2016-09-03 13:46] LABS: ALBUMIN 2.7 GM/DL (3.2-5.2); ALBUMIN/GLOBULIN RATIO 0.73 (1.00-1.93); ALKALINE PHOSPHATASE 76 U/L (45-117); ALT/SGPT 20 U/L (12-78); ANION GAP 11 MEQ/L (8-16); AST/SGOT 16 U/L (15-37); BILIRUBIN,TOTAL 0.2 MG/DL (0.2-1.0); BLOOD UREA NITROGEN 27 MG/DL (7-18); CALCIUM LEVEL 8.9 MG/DL (8.8-10.2); CARBON DIOXIDE LEVEL 24 MEQ/L (21-32); CHLORIDE LEVEL 110 MEQ/L (98-107); CREATININE FOR GFR 1.63 MG/DL (0.70-1.30); FERRITIN 74 NG/ML (26-388); GLOMERULAR FILTRATION RATE 44.6 (>42); GLUCOSE, FASTING 133 MG/DL (83-110); MAGNESIUM LEVEL 1.6 MG/DL (1.8-2.4); PERCENT SATURATION 18.1 % (19.7-37.4); POTASSIUM SERUM 3.7 MEQ/L (3.5-5.1); SODIUM LEVEL 145 MEQ/L (136-145); TOTAL IRON BINDING CAPACITY 271 UG/DL (250-450); TOTAL PROTEIN 6.4 GM/DL (6.4-8.2)
[2016-09-03 14:00] VITALS: BP 147/70
[2016-09-03] MEDS: MAGNESIUM OXIDE 400 MG TAB (MAG-OX) PO SCH ×2 (14:12→20:18)
--- NOTE | 2016-09-03 16:34 | IPNPDOC ---
Spanner Operator Progress Note DATE OF SERVICE: 09/02/2016 DATE OF ADMISSION: Sep 01, 2016 at 12:38 INPATIENT REHABILITATION ADMISSION DAY: #1 PAST MEDICAL HISTORY: 1. History of ulcerative colitis, s/p Ileal pouch-anal anastomosis (J-pouch) 2. Peripheral vascular disease/atherosclerotic/coronary artery disease-CAD 3. s/p OK status post CABG ( in 2002) 4. Diabetes Type 2 insulin-dependent 5. Hypothyroidism 6. CKD type III 7. Hypertension 8. Exposure to agent orange 9. Hyperlipidemia 10. Depression 11. Osteoporosis 12. Trigger finger (2014, left middle finger) 13. Sensory neuronal hearing loss, bilateral tinnitus, uses hearing aids 14. History of nephrolithiasis PAST SURGICAL HISTORY: 1. Ileal pouch-anal anastomosis (IPAA)- 1997 2. CABG in 2002 3. Cataract 4. Appendectomy 5. Hernia repair ALLERGIES: See Below MEDICATIONS ON ADMISSION: Reviewed, see below. SUBJECTIVE: Patient seen in the morning. He appears severely uncomfortable secondary to pain. Otherwise no new complaints. VITAL SIGNS: Temperature 97, pulse 69, respiratory rate 18, blood pressure 180/ 84, pulse oximetry 97 % saturation on room air. PHYSICAL EXAMINATION: GENERAL: Well nourished, well developed, lying in bed, appears uncomfortable HEENT: Normocephalic, atraumatic. No facial droop. PERRL, EOMI. wears corrective lenses CARDIOVASCULAR: S1, S2, regular rate and rhythm. No lower limb edema or calf tenderness in the right lower extremity (residual BKA) LUNGS: Clear to auscultation bilaterally, no wheezing, rhonchi or rales. ABDOMEN: Multiple well-healed scar tissue, mild abdominal distention, soft, non- tender, remote/chronic history of J-pouch. MUSCULOSKELETAL: Manual muscle testin/5 strength bilateral upper limbs in all major muscle groups, 5/5 right hip flexors and adductor, abductor and extension; 4/5 on the left lower limb secondary to pain. Sensation: Diffuse hyperesthesia distal left residual limb. Otherwise sensation intact to light touch in the bilateral upper and right lower extremity NEUROLOGICAL: Awake alert oriented 3. Patient is able to provide complete history of his chronic complicated medical problems . Able to follow commands without difficulty. Answers all questions appropriately. SKIN: Left residual limb, surgical incision site healing no signs of acute infection minimal redness no discharge tram and stitches are in place. However patient does have thickened swelling and hyperesthesia throughout the residual limb and components of phantom limb pain and sensation. LABORATORY DATA: Reviewed, see below. IMAGING:none ASSESSMENT AND PLAN: 70 years old male, multiple vascular pathology, history of right BKA with functional prosthesis developed gangrene to the left lower extremity resulting in left [id number] amputation (AKA, 08/21/16), now with significantly impaired functional mobility and ambulation. 1. Severe atherosclerotic peripheral vascular disease status post left AKA now with gait abnormality and dysfunctional ADLs. Patient is non-weight bearing on the left lower limb. Patient will undergo thorough physical and occupational therapy evaluations with daily intensive therapy and pre-prosthetic training. Rehabilitation nursing for wound care, bladder, bowel and medication management. Monitor and encourage left hip extension, recommend prone positioning while in bed. 2. Pain: Postsurgical incisional pain, neuropathic pain, phantom limb pain and phantom limb sensation. - significant hyperesthesia to left residual limb start on Lidocaine patch - continue Gabapentin 300 mg twice a day (renally dosed, started 09/03/16); Percocet 1-2 tabs every 4 hours as needed for moderate to severe pain; Valium 5- 10 mg every 8 when necessary for severe muscle spasm. - continue with beside desensitization techniques, such as tapping technique, mirror therapy, and temperature contrast 3. Left residual limb: Daily wound care change dressing (sterile dry dressing over sterile Vaseline gauze), Ajith bandage for limb shaping to decrease swelling. 4. Chronic/remote history of ulcerative colitis, s/p Ileal pouch-anal anastomosis (J-pouch). Continue on home regimen with Lomotil 1-2 tabs as needed. 5. Chronic hypertension continue with home antihypertensive medications, monitor blood pressure. Elevated BP likely secondary to pain. 6. Peripheral vascular disease/atherosclerotic/coronary artery disease, CAD continue on home medication of aspirin, Plavix atenolol pravastatin 7. Diabetes Type 2 insulin (HbA1c A1c 6.6)-dependent continue on home insulin regimen dose- Levemir and sliding scale, monitor close levels. 8. CKD type III-avoid any nephrotoxic medication, monitor baseline creatinine input and output 9. Hypothyroidism continue on home levothyroxine 10. Acute blood loss anemia- low H/H 07/07.2, likely post-surgical. Medicine Consulted given multiple acute on chronic medical comorbidities 11. Hyperlipidemia continue on statin 12. Diet: Diabetic/carbs control diet Vital Signs Vital Sign - Last 24 Hours 09/01/16 09/01/16 09/01/16 09/01/16 12:50 14:00 17:52 20:00 Temp 97.5 96.5 Pulse 76 71 Resp 18 18 19 B/P 163/77 155/72 Pulse Ox 97 93 O2 Delivery Room Air Room Air Room Air 09/01/16 09/02/16 09/02/16 09/02/16 20:43 06:00 06:10 06:41 Temp 95.7 Pulse 69 Resp 18 18 18 18 B/P 180/84 Pulse Ox 99 O2 Delivery Room Air 09/02/16 09/02/16 09/02/16 09/02/16 08:20 08:31 08:32 08:32 Pulse 74 74 74 Resp 20 B/P 161/73 161/73 161/73 Laboratory Data CBC/BMP Laboratory Tests 09/02/16 06:20 Calcium Level 8.3 L, Red Blood Count 3.71 L, Mean Corpuscular Volume 84.0, Mean Corpuscular Hemoglobin 27.0, Mean Corpuscular Hemoglobin Concent 32.1, Red Cell Distribution Width 15.8 H Labs 24H Laboratory Tests 2 09/01/16 13:21: Bedside Glucose (Misc Panel) 205H 09/01/16 16:50: Bedside Glucose (Misc Panel) 178H 09/01/16 20:23: Bedside Glucose (Misc Panel) 150H 09/02/16 06:15: Urine Amorphous Sediment , Urine Appearance HAZY, Urine Color YELLOW, Urine pH 5.0, Urine Specific [place] 1.009, Urine Protein 1+H, Urine Glucose (UA) NEGATIVE, Urine Ketones NEGATIVE, Urine Urobilinogen 0.2, Urine Bilirubin NEGATIVE, Urine Leukocyte Esterase 1+H, Urine Bacteria (Auto) 1+H, Urine Blood NEGATIVE, Urine Calcium Carbonate Cryst(Auto) , Urine Calcium Oxalate Cryst ( Auto) , Urine Calcium Phosphate Jenna (Auto) , Urine Cellular Casts , Urine Cystine Crystals , Urine Granular Casts (Auto) , Urine Hyaline Casts (Auto) 0, Urine Leucine Crystals , Urine Mucus (Auto) SMALL, Urine Nitrite NEGATIVE, Urine Oval Fat Bodies (Auto) , Urine RBC (Auto) 5H, Urine Renal Epithelial Cells , Urine Sperm (Auto) , Urine Squamous Epithelial Cells 0, Urine Transitional Epithelial Cells , Urine Trichomonas (Auto) , Urine Triple Phosphate Cryst (Auto) , Urine Tyrosine Crystals , Urine Uric Acid Crystals ( Auto) , Urine WBC (Auto) 41H, Urine Waxy Casts (Auto) , Urine Yeast-Like Cells ( Auto) 09/02/16 06:20: Anion Gap 9, Blood Urea Nitrogen 27H, Creatinine 1.77H, Sodium Level 146H, Potassium Level 4.0, Chloride Level 112H, Carbon Dioxide Level 25, Calcium Level 8.3L, Estimated Mean Plasma Glucose 143H, Glomerular Filtration Rate 40.6L , Hemoglobin A1c 6.6H, Magnesium Level 1.6L FSBS Laboratory Tests Test 09/01/16 13:21 09/01/16 16:50 09/01/16 20:23 Range/Units Bedside Glucose (Misc Panel) 205 178 150 83-110 MG/DL Allergies Allergies: Coded Allergies: Atorvastatin (Verified Allergy, Unknown, MYALGIA, 12/11/12) Rofecoxib (Verified Allergy, Unknown, 12/11/12) Rosuvastatin (Verified Allergy, Unknown, MYALGIA, 12/11/12) Simvastatin (Verified Allergy, Unknown, MYALGIA, 12/11/12) Zolpidem (Verified Adverse Reaction, Unknown, HALLUCINATIONS, 12/11/12) Current Medications Current Medications Current Medications Amlodipine Besylate (Norvasc) 5 mg DAILY PO Last administered on 09/02/16at 08: 32; Start 09/02/16 at 09:00; Stop 10/02/16 at 08:59 Ascorbic Acid (Vitamin C) 500 mg BID PO Last administered on 09/02/16at 08:31; Start 09/01/16 at 21:00; Stop 10/01/16 at 20:59 Aspirin (Ecotrin) 81 mg DAILY PO Last administered on 09/02/16at 08:31; Start 09/02/16 at 09:00; Stop 10/02/16 at 08:59 Atenolol (Tenormin) 100 mg DAILY PO Last administered on 09/02/16at 08:31; Start 09/02/16 at 09:00; Stop 10/02/16 at 08:59 Calcium Carbonate (Oscal) 500 mg DAILY PO Last administered on 09/02/16at 08:31 ; Start 09/02/16 at 09:00; Stop 10/02/16 at 08:59 Ciprofloxacin (Cipro) 500 mg BID@06,18 PO Last administered on 09/02/16at 06:09 ; Start 09/01/16 at 18:00; Stop 09/08/16 at 17:59 Clopidogrel Bisulfate (PLAVix) 75 mg DAILY PO Last administered on 09/02/16at 08:31; Start 09/02/16 at 09:00; Stop 10/02/16 at 08:59 Dextrose (Dextrose 50%) 25 ml ASDIRECTED PRN IV SEE LABEL COMMENTS; Start at 14:30; Stop 10/01/16 at 14:29 Diazepam (Valium) 5 mg Q6HP PRN PO spasm/tightness Last administered on at 15:56; Start 09/01/16 at 14:00; Stop 09/08/16 at 13:59 Diphenoxylate HCl/ Atropine (Lomotil 2.5mg/ 0.025mg) 1 ea QID PRN PO DIARRHEA Last administered on 09/02/16at 06:09; Start 09/01/16 at 14:00; Stop 09/08/16 at 13:59 Diphenoxylate HCl/ Atropine (Lomotil 2.5mg/ 0.025mg) 2 ea QID PRN PO SEVERE DIARRHEA; Start 09/01/16 at 14:45; Stop 09/08/16 at 14:44 Ferrous Sulfate (Ferrous Sulfate) 325 mg DAILY PO Last administered on at 08:31; Start 09/02/16 at 09:00; Stop 10/02/16 at 08:59 Fish Oil (Jber-3 (1050mg)) 1 ea DAILY PO Last administered on 09/02/16at 08:31 ; Start 09/02/16 at 09:00; Stop 10/02/16 at 08:59 Gabapentin (Neurontin) 600 mg BID PO Last administered on 09/02/16at 08:31; Start 09/01/16 at 21:00; Stop 10/01/16 at 20:59 Glucagon (Glucagon) 1 mg ASDIRECTED PRN SC SEE LABEL COMMENTS; Start 09/01/16 at 14:30; Stop 10/01/16 at 14:29 Glucose (Glucose) 16 GM ASDIRECTED PRN PO SEE LABEL COMMENTS; Start 09/01/16 at 14:30; Stop 10/01/16 at 14:29 Home Med (Med Rec Complete!) ASDIRECTED XX ; Start 09/01/16 at 13:30; Stop at 13:33; Status DC Insulin Detemir (Levemir Insulin) 15 units QAM SC Last administered on at 08:30; Start 09/02/16 at 09:00; Stop 10/02/16 at 08:59 Insulin Human Lispro (HumaLOG INSULIN) 1 units AC SC ; Start 09/01/16 at 17:30 ; Stop 09/01/16 at 17:30; Status DC Insulin Human Lispro (HumaLOG INSULIN) SEE PROTOCOL TABLE Q6H SC ; Start at 14:30; Stop 09/01/16 at 14:33; Status DC Insulin Human Lispro (HumaLOG INSULIN) See Protocol Table AC SC Last administered on 09/02/16at 08:29; Start 09/01/16 at 17:30; Stop 10/01/16 at 17: 29 Insulin Human Lispro (HumaLOG INSULIN) See Protocol Table QHS SC ; Start at 21:00; Stop 10/01/16 at 20:59 Levothyroxine Sodium (Synthroid) 0.1 mg DAILY@06 PO Last administered on at 06:09; Start 09/02/16 at 06:00; Stop 10/02/16 at 05:59 Lidocaine (Lidoderm Patch) 2 patch DAILY TD ; Start 09/02/16 at 09:00; Stop at 08:59 Multivitamins (Theragram-M) 1 tab DAILY PO Last administered on 09/02/16at 08: 31; Start 09/02/16 at 09:00; Stop 10/02/16 at 08:59 Multivitamins (Theragram-M) 1 tab DAILY PO ; Start 09/02/16 at 09:00; Stop at 08:59; Status UNV Non-Formulary Medication ( See Comment Field Below ) REMOVE LIDODERM PATCH DAILY@21 XX ; Start 09/02/16 at 21:00; Stop 10/02/16 at 20:59 Oxycodone HCl (OxyCONTIN) 20 mg Q12H PO Last administered on 09/02/16 08:32; Start 09/01/16 at 21:00; Stop 09/08/16 at 20:59 Oxycodone HCl (Roxicodone, Oxyir) 15 mg Q6H PRN PO PAIN Last administered on at 06:10; Start 09/01/16 at 14:00; Stop 09/08/16 at 13:59 Pantoprazole Sodium (Protonix) 40 mg DAILY PO Last administered on 09/02/16at 08:31; Start 09/02/16 at 09:00; Stop 10/02/16 at 08:59 Pravastatin Sodium (Pravachol) 10 mg QHS PO Last administered on 09/01/16at 20: 42; Start 09/01/16 at 21:00; Stop 10/01/16 at 20:59 Pyridoxine HCl (Vitamin B6) 100 mg BID PO Last administered on 09/02/16at 08:31 ; Start 09/01/16 at 21:00; Stop 10/01/16 at 20:59 Vitamin D (Vitamin D) 6,000 units DAILY PO Last administered on 09/02/16at 08: 30; Start 09/02/16 at 09:00; Stop 10/02/16 at 08:59 MAC CUELLAR MD Sep 02, 2016 09:32
[2016-09-03 20:00] VITALS: BP 150/80
[2016-09-03] MEDS: PRAVASTATIN 10 MG TAB PO SCH (20:18)
[2016-09-03] MEDS: **NOTE PATIENT COMMENT** MISC XX SCH (20:19)
[2016-09-04] MEDS: CIPROFLOXACIN 500 MG TAB PO SCH ×2 (05:46→17:03)
[2016-09-04] MEDS: oxyCODONE 5MG TAB PO PRN ×3 (05:46→17:58)
[2016-09-04] MEDS: LEVOTHYROXINE 0.1 MG TAB (100 MCG) PO SCH (05:46)
[2016-09-04 06:00] VITALS: BP 154/79
[2016-09-04 06:47] LABS: MEAN CORPUSCULAR HEMOGLOBIN 26.7 pg (27.0-33.0); MEAN CORPUSCULAR HGB CONC 31.5 g/dl (32.0-36.5); MEAN CORPUSCULAR VOLUME 84.6 fl (80.0-96.0); RED CELL DISTRIBUTION WIDTH 14.9 % (11.5-14.5); WHITE BLOOD COUNT 9.3 K/mm3 (4.0-10.0)
[2016-09-04 07:05] LABS: CALCIUM LEVEL 8.9 MG/DL (8.8-10.2); CREATININE FOR GFR 1.64 MG/DL (0.70-1.30); GLOMERULAR FILTRATION RATE 44.3 (>42); POTASSIUM SERUM 3.8 MEQ/L (3.5-5.1)
[2016-09-04] MEDS: HumaLOG INSULIN (NovoLOG) PER UNIT SC SCH ×4 (08:29→21:00)
[2016-09-04] MEDS: PYRIDOXINE 50 MG TAB PO SCH ×2 (08:31→21:07)
[2016-09-04] MEDS: VITAMIN D 1,000 INTERNATIONAL UNITS TABLET PO SCH (08:31)
[2016-09-04] MEDS: CLOPIDOGREL 75 MG TAB PO SCH (08:32)
[2016-09-04] MEDS: ASPIRIN 81 MG ENTERIC TAB PO SCH (08:32)
[2016-09-04] MEDS: OYSTER SHELL CALCIUM 500 MG TAB PO SCH (08:32)
[2016-09-04] MEDS: OMEGA-3 1050MG CAPSULE PO SCH (08:32)
[2016-09-04] MEDS: MULTIVITAMINS/MINERALS THERAP 1 TAB PO SCH (08:32)
[2016-09-04] MEDS: ASCORBIC ACID 500 MG TAB PO SCH ×2 (08:32→21:07)
[2016-09-04] MEDS: MAGNESIUM OXIDE 400 MG TAB (MAG-OX) PO SCH ×2 (08:32→21:09)
[2016-09-04] MEDS: PANTOPRAZOLE 40MG TAB (PROTONIX) PO SCH (08:32)
[2016-09-04] MEDS: GABAPENTIN 300 MG CAP PO SCH ×3 (08:32→21:09)
[2016-09-04] MEDS: ATENOLOL 50 MG TAB PO SCH (08:33)
[2016-09-04] MEDS: amLODIPine 5 MG TAB PO SCH (08:33)
[2016-09-04] MEDS: FERROUS SULFATE 325MG TAB PO SCH ×2 (08:33→21:07)
[2016-09-04] MEDS: oxyCODONE 20 MG CR TAB PO SCH ×2 (08:34→21:09)
[2016-09-04] MEDS: LEVEMIR (INSULIN DETEMIR) 1 UNITS/0.01ML SC SCH (08:35)
[2016-09-04] MEDS: LIDOCAINE 5% (LIDODERM) PATCH TD SCH (08:36)
--- NOTE | 2016-09-04 09:14 | IPNPDOC ---
Vp Director Of Creative Strategy Progress Note DATE OF SERVICE: 09/04/2016 DATE OF ADMISSION: Sep 01, 2016 at 12:38 INPATIENT REHABILITATION ADMISSION DAY: #3 PAST MEDICAL HISTORY: 1. History of ulcerative colitis, s/p Ileal pouch-anal anastomosis (J-pouch) 2. Peripheral vascular disease/atherosclerotic/coronary artery disease-CAD 3. s/p [place] status post CABG ( in 2002) 4. Diabetes Type 2 insulin-dependent 5. Hypothyroidism 6. CKD type III 7. Hypertension 8. Exposure to agent orange 9. Hyperlipidemia 10. Depression 11. Osteoporosis 12. Trigger finger (2014, left middle finger) 13. Sensory neuronal hearing loss, bilateral tinnitus, uses hearing aids 14. History of nephrolithiasis PAST SURGICAL HISTORY: 1. Ileal pouch-anal anastomosis (IPAA)- 1997 2. CABG in 2002 3. Cataract 4. Appendectomy 5. Hernia repair ALLERGIES: See Below MEDICATIONS ON ADMISSION: Reviewed, see below. SUBJECTIVE: Patient seen in the morning. Sitting in WC at bedside. Patient reports of severe phantom pain in the left toe overnight. He reports that pain medication oxycodone 15 mg provide no relief. During the day, patient notices decreased hyper sensitivity to the left residual limb after when shaping and desensitization techniques performed yesterday. And he is able to tolerate therapy. Otherwise no new complaints. VITAL SIGNS: Temperature 97.6, pulse 74, respiratory rate 18, blood pressure 154 /79, pulse oximetry 97 % saturation on room air. PHYSICAL EXAMINATION: GENERAL: Well nourished, well developed, sitting in WC, no acute distress HEENT: Normocephalic, atraumatic. No facial droop. PERRL, EOMI. wears corrective lenses CARDIOVASCULAR: S1, S2, regular rate and rhythm. No lower limb edema or calf tenderness in the right lower extremity (residual BKA) LUNGS: Clear to auscultation bilaterally, no wheezing, rhonchi or rales. ABDOMEN: Multiple well-healed scar tissue, mild abdominal distention, soft, non- tender, remote/chronic history of J-pouch. MUSCULOSKELETAL: Manual muscle testin/5 strength bilateral upper limbs in all major muscle groups, 5/5 right hip flexors and adductor, abductor and extension; 4/5 on the left lower limb secondary to pain. Sensation: Diffuse hyperesthesia distal left residual limb. Otherwise sensation intact to light touch in the bilateral upper and right lower extremity NEUROLOGICAL: Awake alert oriented 3. Patient is able to provide complete history of his chronic complicated medical problems . Able to follow commands without difficulty. Answers all questions appropriately. SKIN: Left residual limb, surgical incision site healing no signs of acute infection minimal redness no discharge tram and stitches are in place. Decreased swelling and hyperesthesia to the left residual limb LABORATORY DATA: Reviewed, see below. IMAGING:none ASSESSMENT AND PLAN: 70 years old male, multiple vascular pathology, history of right BKA with functional prosthesis developed gangrene to the left lower extremity resulting in left [id number] amputation (AKA, 08/21/16), now with significantly impaired functional mobility and ambulation. 1. Severe atherosclerotic peripheral vascular disease status post left AKA now with gait abnormality and dysfunctional ADLs. Patient is non-weight bearing on the left lower limb. Patient will undergo thorough physical and occupational therapy evaluations with daily intensive therapy and pre-prosthetic training. Rehabilitation nursing for wound care, bladder, bowel and medication management. Monitor and encourage left hip extension, recommend prone positioning while in bed. 2. Pain: Postsurgical incisional pain, neuropathic pain, phantom limb pain and phantom limb sensation. - phantom limb pain increase Gabapentin 300 mg twice a day to three times a day (09/04) - bedside desensitization techniques and residual limb wrapping with noted improvement of hyperesthesia - oxycodone 30mg q4 prn for severe pain, oxycodone 15mg q4 prn for moderate pain, and Percocet 1-2 tabs every 4 hours for mild moderate pain. Valium 5-10 mg every 8 when necessary for severe muscle spasm. 3. Left residual limb: Daily wound care change dressing (sterile dry dressing over sterile Vaseline gauze), Ajith bandage for limb shaping and decreasing swelling. 4. Chronic/remote history of ulcerative colitis, s/p Ileal pouch-anal anastomosis (J-pouch). Continue on home regimen with Lomotil 1-2 tabs as needed. 5. Chronic hypertension continue with home antihypertensive medications, monitor blood pressure. 6. Peripheral vascular disease/atherosclerotic/coronary artery disease, CAD continue on home medication of aspirin, Plavix atenolol pravastatin 7. Diabetes Type 2 insulin (HbA1c A1c 6.6)-dependent continue on home insulin regimen dose- Levemir and sliding scale, monitor close levels. 8. CKD type III-avoid any nephrotoxic medication, monitor baseline creatinine input and output 9. Hypothyroidism continue on home levothyroxine 10. Acute blood loss anemia- low H/H 07/07.2, likely post-surgical. - pending iron study work-up, as per medicine consult 11. Hyperlipidemia continue on statin 12. Diet: Diabetic/carbs control diet INTERDISCIPLINARY CARE AND DISCHARGE PLANNIN. The patient continues to require 24-hour rehabilitation nursing and physician management 2.The patient continues to benefit from current level of interdisciplinary care 3. Post discharge follow-up medical appointments: Orthopedics, Cardiology, and PMD 4. Team conference dates:09/02/16 5. Anticipated discharge date: 09/18/2016 6. Anticipated discharge location: Home 7. Anticipated discharge needs: HHS: PT, OT, and RN. Equipment needs: pending Vital Signs Vital Sign - Last 24 Hours 09/03/16 09/03/16 09/03/16 09/03/16 10:00 14:00 20:00 20:19 Temp 98.4 98.0 Pulse 76 77 Resp 20 20 20 18 B/P 147/70 150/80 Pulse Ox 95 96 O2 Delivery Room Air 09/03/16 09/04/16 09/04/16 09/04/16 22:19 05:46 06:00 06:40 Temp 97.6 Pulse 74 Resp 18 18 19 18 B/P 154/79 Pulse Ox 93 O2 Delivery Room Air 09/04/16 09/04/16 08:33 08:34 Pulse 74 Resp 18 B/P 154/79 O2 Delivery Room Air Laboratory Data CBC/BMP Laboratory Tests 09/03/16 12:42 Calcium Level 8.9, Aspartate Amino Transf (AST/SGOT) 16, Alanine Aminotransferase (ALT/SGPT) 20, Alkaline Phosphatase 76, Total Bilirubin 0.2, Total Protein 6.4, Albumin 2.7 L, Red Blood Count 3.91 L, Mean Corpuscular Volume 83.6, Mean Corpuscular Hemoglobin 26.4 L, Mean Corpuscular Hemoglobin Concent 31.5 L, Red Cell Distribution Width 14.9 H 09/04/16 06:31 Calcium Level 8.9, Red Blood Count 3.94 L, Mean Corpuscular Volume 84.6, Mean Corpuscular Hemoglobin 26.7 L, Mean Corpuscular Hemoglobin Concent 31.5 L, Red Cell Distribution Width 14.9 H Labs 24H Laboratory Tests 2 09/03/16 11:26: Bedside Glucose (Misc Panel) 159H 09/03/16 12:42: Blood Urea Nitrogen 27H, Creatinine 1.63H, Sodium Level 145, Potassium Level 3.7 , Chloride Level 110H, Carbon Dioxide Level 24, Calcium Level 8.9, Aspartate Amino Transf (AST/SGOT) 16, Alanine Aminotransferase (ALT/SGPT) 20, Alkaline Phosphatase 76, Total Bilirubin 0.2, Total Protein 6.4, Albumin 2.7L, Albumin/ Globulin Ratio 0.73L, Anion Gap 11, Ferritin 74, Folate > 24.0, Glomerular Filtration Rate 44.6, Iron Level 49L, Magnesium Level 1.6L, Total Iron Binding Capacity 271, Transferrin % Saturation 18.1L, Vitamin B12 Level 795 09/03/16 16:38: Bedside Glucose (Misc Panel) 128H 09/03/16 20:20: Bedside Glucose (Misc Panel) 84 09/04/16 06:31: Anion Gap 11, Blood Urea Nitrogen 24H, Creatinine 1.64H, Sodium Level 146H, Potassium Level 3.8, Chloride Level 110H, Carbon Dioxide Level 25, Calcium Level 8.9, Glomerular Filtration Rate 44.3 FSBS Laboratory Tests Test 09/03/16 11:26 09/03/16 16:38 09/03/16 20:20 Range/Units Bedside Glucose (Misc Panel) 159 128 84 83-110 MG/DL Allergies Allergies: Coded Allergies: Atorvastatin (Verified Allergy, Unknown, MYALGIA, 12/11/12) Rofecoxib (Verified Allergy, Unknown, 12/11/12) Rosuvastatin (Verified Allergy, Unknown, MYALGIA, 12/11/12) Simvastatin (Verified Allergy, Unknown, MYALGIA, 12/11/12) Zolpidem (Verified Adverse Reaction, Unknown, HALLUCINATIONS, 12/11/12) Current Medications Current Medications Current Medications Amlodipine Besylate (Norvasc) 5 mg DAILY PO Last administered on 09/04/16at 08: 33; Start 09/02/16 at 09:00; Stop 10/02/16 at 08:59 Ascorbic Acid (Vitamin C) 500 mg BID PO Last administered on 09/04/16at 08:32; Start 09/01/16 at 21:00; Stop 10/01/16 at 20:59 Aspirin (Ecotrin) 81 mg DAILY PO Last administered on 09/04/16at 08:32; Start 09/02/16 at 09:00; Stop 10/02/16 at 08:59 Atenolol (Tenormin) 100 mg DAILY PO Last administered on 09/04/16at 08:33; Start 09/02/16 at 09:00; Stop 10/02/16 at 08:59 Calcium Carbonate (Oscal) 500 mg DAILY PO Last administered on 09/04/16at 08:32 ; Start 09/02/16 at 09:00; Stop 10/02/16 at 08:59 Ciprofloxacin (Cipro) 500 mg BID@06,18 PO Last administered on 09/04/16at 05:46 ; Start 09/01/16 at 18:00; Stop 09/08/16 at 17:59 Clopidogrel Bisulfate (PLAVix) 75 mg DAILY PO Last administered on 09/04/16at 08:32; Start 09/02/16 at 09:00; Stop 10/02/16 at 08:59 Dextrose (Dextrose 50%) 25 ml ASDIRECTED PRN IV SEE LABEL COMMENTS; Start at 14:30; Stop 10/01/16 at 14:29 Diazepam (Valium) 5 mg Q6HP PRN PO spasm/tightness Last administered on at 10:40; Start 09/01/16 at 14:00; Stop 09/08/16 at 13:59 Diphenoxylate HCl/ Atropine (Lomotil 2.5mg/ 0.025mg) 1 ea QID PRN PO DIARRHEA Last administered on 09/02/16at 06:09; Start 09/01/16 at 14:00; Stop 09/08/16 at 13:59 Diphenoxylate HCl/ Atropine (Lomotil 2.5mg/ 0.025mg) 2 ea QID PRN PO SEVERE DIARRHEA; Start 09/01/16 at 14:45; Stop 09/08/16 at 14:44 Ferrous Sulfate (Ferrous Sulfate) 325 mg BID PO Last administered on at 08:33; Start 09/03/16 at 21:00; Stop 10/03/16 at 20:59 Ferrous Sulfate (Ferrous Sulfate) 325 mg DAILY PO Last administered on at 08:41; Start 09/02/16 at 09:00; Stop 09/03/16 at 13:55; Status DC Fish Oil ([place]-3 (1050mg)) 1 ea DAILY PO Last administered on 09/04/16at 08:32 ; Start 09/02/16 at 09:00; Stop 10/02/16 at 08:59 Gabapentin (Neurontin) 600 mg BID PO Last administered on 09/04/16at 08:32; Start 09/01/16 at 21:00; Stop 10/01/16 at 20:59 Glucagon (Glucagon) 1 mg ASDIRECTED PRN SC SEE LABEL COMMENTS; Start 09/01/16 at 14:30; Stop 10/01/16 at 14:29 Glucose (Glucose) 16 GM ASDIRECTED PRN PO SEE LABEL COMMENTS; Start 09/01/16 at 14:30; Stop 10/01/16 at 14:29 Home Med (Med Rec Complete!) ASDIRECTED XX ; Start 09/01/16 at 13:30; Stop at 13:33; Status DC Insulin Detemir (Levemir Insulin) 15 units QAM SC Last administered on at 08:35; Start 09/02/16 at 09:00; Stop 10/02/16 at 08:59 Insulin Human Lispro (HumaLOG INSULIN) 1 units AC SC ; Start 09/01/16 at 17:30 ; Stop 09/01/16 at 17:30; Status DC Insulin Human Lispro (HumaLOG INSULIN) SEE PROTOCOL TABLE Q6H SC ; Start at 14:30; Stop 09/01/16 at 14:33; Status DC Insulin Human Lispro (HumaLOG INSULIN) See Protocol Table AC SC Last administered on 09/04/16at 08:29; Start 09/01/16 at 17:30; Stop 10/01/16 at 17: 29 Insulin Human Lispro (HumaLOG INSULIN) See Protocol Table QHS SC ; Start at 21:00; Stop 10/01/16 at 20:59 Levothyroxine Sodium (Synthroid) 0.1 mg DAILY@06 PO Last administered on at 05:46; Start 09/02/16 at 06:00; Stop 10/02/16 at 05:59 Lidocaine (Lidoderm Patch) 2 patch DAILY TD Last administered on 09/04/16 08: 36; Start 09/02/16 at 09:00; Stop 10/02/16 at 08:59 Magnesium Oxide (Mag-Ox) 400 mg BID PO Last administered on 09/04/16 08:32; Start 09/03/16 at 09:00; Stop 10/03/16 at 08:59 Multivitamins (Theragram-M) 1 tab DAILY PO Last administered on 09/04/16at 08: 32; Start 09/02/16 at 09:00; Stop 10/02/16 at 08:59 Multivitamins (Theragram-M) 1 tab DAILY PO ; Start 09/02/16 at 09:00; Stop at 08:59; Status UNV Non-Formulary Medication ( See Comment Field Below ) REMOVE LIDODERM PATCH DAILY@21 XX Last administered on 09/03/16at 20:19; Start 09/02/16 at 21:00; Stop 10/02/16 at 20:59 Oxycodone HCl (OxyCONTIN) 20 mg Q12H PO Last administered on 09/04/16 08:34; Start 09/01/16 at 21:00; Stop 09/08/16 at 20:59 Oxycodone HCl (Roxicodone, Oxyir) 15 mg Q6H PRN PO PAIN Last administered on 05:46; Start 09/01/16 at 14:00; Stop 09/08/16 at 13:59 Pantoprazole Sodium (Protonix) 40 mg DAILY PO Last administered on 09/04/16at 08:32; Start 09/02/16 at 09:00; Stop 10/02/16 at 08:59 Pravastatin Sodium (Pravachol) 10 mg QHS PO Last administered on 09/03/16at 20: 18; Start 09/01/16 at 21:00; Stop 10/01/16 at 20:59 Pyridoxine HCl (Vitamin B6) 100 mg BID PO Last administered on 09/04/16 08:31 ; Start 09/01/16 at 21:00; Stop 10/01/16 at 20:59 Vitamin D (Vitamin D) 6,000 units DAILY PO Last administered on 09/04/16at 08: 31; Start 09/02/16 at 09:00; Stop 10/02/16 at 08:59 MAC CUELLAR MD Sep 04, 2016 09:14
[2016-09-04] MEDS: EUCERIN 120GM CREAM TOP SCH ×2 (12:14→21:10)
[2016-09-04 20:00] VITALS: BP 160/79
[2016-09-04] MEDS: **NOTE PATIENT COMMENT** MISC XX SCH (21:00)
[2016-09-04] MEDS: PRAVASTATIN 10 MG TAB PO SCH (21:07)
[2016-09-05] MEDS: CIPROFLOXACIN 500 MG TAB PO SCH ×2 (05:38→17:09)
[2016-09-05] MEDS: LEVOTHYROXINE 0.1 MG TAB (100 MCG) PO SCH (05:38)
[2016-09-05] MEDS: oxyCODONE 5MG TAB PO PRN ×3 (05:46→23:37)
[2016-09-05 06:00] VITALS: BP 162/72
[2016-09-05 07:16] LABS: CALCIUM LEVEL 8.9 MG/DL (8.8-10.2); CREATININE FOR GFR 1.73 MG/DL (0.70-1.30); GLOMERULAR FILTRATION RATE 41.7 (>42); MAGNESIUM LEVEL 1.7 MG/DL (1.8-2.4); POTASSIUM SERUM 3.9 MEQ/L (3.5-5.1)
[2016-09-05] MEDS: HumaLOG INSULIN (NovoLOG) PER UNIT SC SCH ×4 (08:35→20:20)
[2016-09-05] MEDS: EUCERIN 120GM CREAM TOP SCH ×2 (08:35→20:27)
[2016-09-05] MEDS: oxyCODONE 20 MG CR TAB PO SCH ×2 (08:36→20:26)
[2016-09-05] MEDS: PYRIDOXINE 50 MG TAB PO SCH ×2 (08:36→20:27)
[2016-09-05] MEDS: ATENOLOL 50 MG TAB PO SCH (08:36)
[2016-09-05] MEDS: OMEGA-3 1050MG CAPSULE PO SCH (08:37)
[2016-09-05] MEDS: FERROUS SULFATE 325MG TAB PO SCH ×2 (08:37→20:25)
[2016-09-05] MEDS: ASCORBIC ACID 500 MG TAB PO SCH ×2 (08:37→20:27)
[2016-09-05] MEDS: MULTIVITAMINS/MINERALS THERAP 1 TAB PO SCH (08:37)
[2016-09-05] MEDS: MAGNESIUM OXIDE 400 MG TAB (MAG-OX) PO SCH ×2 (08:37→20:25)
[2016-09-05] MEDS: VITAMIN D 1,000 INTERNATIONAL UNITS TABLET PO SCH (08:37)
[2016-09-05] MEDS: ASPIRIN 81 MG ENTERIC TAB PO SCH (08:37)
[2016-09-05] MEDS: GABAPENTIN 300 MG CAP PO SCH ×3 (08:37→20:25)
[2016-09-05] MEDS: OYSTER SHELL CALCIUM 500 MG TAB PO SCH (08:37)
[2016-09-05] MEDS: CLOPIDOGREL 75 MG TAB PO SCH (08:37)
[2016-09-05] MEDS: PANTOPRAZOLE 40MG TAB (PROTONIX) PO SCH (08:37)
[2016-09-05] MEDS: amLODIPine 5 MG TAB PO SCH (08:37)
[2016-09-05] MEDS: LIDOCAINE 5% (LIDODERM) PATCH TD SCH (08:38)
[2016-09-05] MEDS: LEVEMIR (INSULIN DETEMIR) 1 UNITS/0.01ML SC SCH (08:38)
[2016-09-05 14:00] VITALS: BP 163/78
[2016-09-05 20:00] VITALS: BP 163/76
[2016-09-05] MEDS: PRAVASTATIN 10 MG TAB PO SCH (20:27)
[2016-09-05] MEDS: **NOTE PATIENT COMMENT** MISC XX SCH (20:28)
[2016-09-05] MEDS: LOMOTIL 2.5MG/0.025MG TABLET PO PRN (20:35)
[2016-09-06] MEDS: LOMOTIL 2.5MG/0.025MG TABLET PO PRN ×3 (02:13→17:37)
[2016-09-06] MEDS: LEVOTHYROXINE 0.1 MG TAB (100 MCG) PO SCH (05:41)
[2016-09-06] MEDS: CIPROFLOXACIN 500 MG TAB PO SCH ×2 (05:41→17:34)
[2016-09-06 06:00] VITALS: BP 160/77
[2016-09-06] MEDS: OMEGA-3 1050MG CAPSULE PO SCH (08:58)
[2016-09-06] MEDS: ASCORBIC ACID 500 MG TAB PO SCH ×2 (08:58→21:42)
[2016-09-06] MEDS: FERROUS SULFATE 325MG TAB PO SCH ×2 (08:58→21:40)
[2016-09-06] MEDS: OYSTER SHELL CALCIUM 500 MG TAB PO SCH (08:58)
[2016-09-06] MEDS: VITAMIN D 1,000 INTERNATIONAL UNITS TABLET PO SCH (08:58)
[2016-09-06] MEDS: ASPIRIN 81 MG ENTERIC TAB PO SCH (08:58)
[2016-09-06] MEDS: PYRIDOXINE 50 MG TAB PO SCH ×2 (08:58→21:42)
[2016-09-06] MEDS: MULTIVITAMINS/MINERALS THERAP 1 TAB PO SCH (08:58)
[2016-09-06] MEDS: MAGNESIUM OXIDE 400 MG TAB (MAG-OX) PO SCH ×2 (08:59→21:42)
[2016-09-06] MEDS: PANTOPRAZOLE 40MG TAB (PROTONIX) PO SCH (08:59)
[2016-09-06] MEDS: CLOPIDOGREL 75 MG TAB PO SCH (08:59)
[2016-09-06] MEDS: ATENOLOL 50 MG TAB PO SCH (08:59)
[2016-09-06] MEDS: EUCERIN 120GM CREAM TOP SCH ×2 (09:00→21:00)
[2016-09-06] MEDS: amLODIPine 5 MG TAB PO SCH (09:00)
[2016-09-06] MEDS: GABAPENTIN 300 MG CAP PO SCH ×3 (09:00→21:42)
[2016-09-06] MEDS: oxyCODONE 20 MG CR TAB PO SCH ×2 (09:00→21:41)
[2016-09-06] MEDS: LEVEMIR (INSULIN DETEMIR) 1 UNITS/0.01ML SC SCH (09:01)
[2016-09-06] MEDS: HumaLOG INSULIN (NovoLOG) PER UNIT SC SCH ×4 (09:02→21:00)
[2016-09-06] MEDS: LIDOCAINE 5% (LIDODERM) PATCH TD SCH (09:02)
[2016-09-06] MEDS: oxyCODONE 5MG TAB PO PRN ×2 (12:24→21:40)
[2016-09-06 14:00] VITALS: BP 102/58
[2016-09-06 20:00] VITALS: BP 153/74
[2016-09-06] MEDS: PRAVASTATIN 10 MG TAB PO SCH (21:41)
[2016-09-06] MEDS: **NOTE PATIENT COMMENT** MISC XX SCH (21:44)
[2016-09-07] MEDS: LEVOTHYROXINE 0.1 MG TAB (100 MCG) PO SCH (05:42)
[2016-09-07] MEDS: CIPROFLOXACIN 500 MG TAB PO SCH ×2 (05:42→17:23)
[2016-09-07 06:00] VITALS: BP 143/62
[2016-09-07 07:32] LABS: MEAN CORPUSCULAR HEMOGLOBIN 26.2 pg (27.0-33.0); MEAN CORPUSCULAR HGB CONC 31.2 g/dl (32.0-36.5); WHITE BLOOD COUNT 11.6 K/mm3 (4.0-10.0)
[2016-09-07 07:34] LABS: CALCIUM LEVEL 9.1 MG/DL (8.8-10.2); CREATININE FOR GFR 1.91 MG/DL (0.70-1.30); GLOMERULAR FILTRATION RATE 37.2 (>42); MAGNESIUM LEVEL 1.7 MG/DL (1.8-2.4); POTASSIUM SERUM 4.1 MEQ/L (3.5-5.1)
[2016-09-07] MEDS: HumaLOG INSULIN (NovoLOG) PER UNIT SC SCH ×4 (08:04→20:55)
[2016-09-07] MEDS: OYSTER SHELL CALCIUM 500 MG TAB PO SCH (08:05)
[2016-09-07] MEDS: CLOPIDOGREL 75 MG TAB PO SCH (08:05)
[2016-09-07] MEDS: VITAMIN D 1,000 INTERNATIONAL UNITS TABLET PO SCH (08:05)
[2016-09-07] MEDS: oxyCODONE 20 MG CR TAB PO SCH ×2 (08:05→20:25)
[2016-09-07] MEDS: LOMOTIL 2.5MG/0.025MG TABLET PO PRN ×2 (08:06→20:23)
[2016-09-07] MEDS: PANTOPRAZOLE 40MG TAB (PROTONIX) PO SCH (08:06)
[2016-09-07] MEDS: OMEGA-3 1050MG CAPSULE PO SCH (08:06)
[2016-09-07] MEDS: ASPIRIN 81 MG ENTERIC TAB PO SCH (08:06)
[2016-09-07] MEDS: FERROUS SULFATE 325MG TAB PO SCH ×2 (08:06→20:23)
[2016-09-07] MEDS: PYRIDOXINE 50 MG TAB PO SCH ×2 (08:06→20:23)
[2016-09-07] MEDS: ASCORBIC ACID 500 MG TAB PO SCH ×2 (08:06→20:23)
[2016-09-07] MEDS: GABAPENTIN 300 MG CAP PO SCH ×3 (08:06→20:23)
[2016-09-07] MEDS: ATENOLOL 50 MG TAB PO SCH (08:06)
[2016-09-07] MEDS: MULTIVITAMINS/MINERALS THERAP 1 TAB PO SCH (08:06)
[2016-09-07] MEDS: LIDOCAINE 5% (LIDODERM) PATCH TD SCH (08:07)
[2016-09-07] MEDS: amLODIPine 5 MG TAB PO SCH (08:07)
[2016-09-07] MEDS: MAGNESIUM OXIDE 400 MG TAB (MAG-OX) PO SCH ×2 (08:07→20:23)
[2016-09-07] MEDS: LEVEMIR (INSULIN DETEMIR) 1 UNITS/0.01ML SC SCH (08:16)
[2016-09-07] MEDS: EUCERIN 120GM CREAM TOP SCH ×2 (08:17→20:25)
[2016-09-07] MEDS: oxyCODONE 5MG TAB PO PRN ×3 (09:12→17:25)
[2016-09-07 14:00] VITALS: BP 143/61
[2016-09-07 20:00] VITALS: BP 129/61
[2016-09-07] MEDS: PRAVASTATIN 10 MG TAB PO SCH (20:23)
[2016-09-07] MEDS: **NOTE PATIENT COMMENT** MISC XX SCH (20:26)
[2016-09-08] MEDS: LEVOTHYROXINE 0.1 MG TAB (100 MCG) PO SCH (05:54)
[2016-09-08] MEDS: CIPROFLOXACIN 500 MG TAB PO SCH ×2 (05:54→17:26)
[2016-09-08 06:00] VITALS: BP 136/63
[2016-09-08] MEDS: oxyCODONE 5MG TAB PO PRN ×3 (06:16→18:40)
[2016-09-08] MEDS: HumaLOG INSULIN (NovoLOG) PER UNIT SC SCH ×4 (08:37→20:12)
[2016-09-08] MEDS: LEVEMIR (INSULIN DETEMIR) 1 UNITS/0.01ML SC SCH (08:37)
[2016-09-08] MEDS: LIDOCAINE 5% (LIDODERM) PATCH TD SCH ×2 (08:39→08:51)
[2016-09-08] MEDS: oxyCODONE 20 MG CR TAB PO SCH ×2 (08:40→20:27)
[2016-09-08] MEDS: OMEGA-3 1050MG CAPSULE PO SCH (08:41)
[2016-09-08] MEDS: CLOPIDOGREL 75 MG TAB PO SCH (08:41)
[2016-09-08] MEDS: OYSTER SHELL CALCIUM 500 MG TAB PO SCH (08:41)
[2016-09-08] MEDS: PYRIDOXINE 50 MG TAB PO SCH ×2 (08:41→20:26)
[2016-09-08] MEDS: amLODIPine 5 MG TAB PO SCH (08:41)
[2016-09-08] MEDS: FERROUS SULFATE 325MG TAB PO SCH ×2 (08:42→20:27)
[2016-09-08] MEDS: ATENOLOL 50 MG TAB PO SCH (08:42)
[2016-09-08] MEDS: MULTIVITAMINS/MINERALS THERAP 1 TAB PO SCH (08:42)
[2016-09-08] MEDS: ASCORBIC ACID 500 MG TAB PO SCH ×2 (08:42→20:27)
[2016-09-08] MEDS: MAGNESIUM OXIDE 400 MG TAB (MAG-OX) PO SCH ×2 (08:42→20:26)
[2016-09-08] MEDS: PANTOPRAZOLE 40MG TAB (PROTONIX) PO SCH (08:42)
[2016-09-08] MEDS: ASPIRIN 81 MG ENTERIC TAB PO SCH (08:42)
[2016-09-08] MEDS: GABAPENTIN 300 MG CAP PO SCH ×3 (08:42→20:26)
[2016-09-08] MEDS: VITAMIN D 1,000 INTERNATIONAL UNITS TABLET PO SCH (08:43)
[2016-09-08] MEDS: EUCERIN 120GM CREAM TOP SCH ×2 (08:43→20:28)
[2016-09-08] MEDS: LOMOTIL 2.5MG/0.025MG TABLET PO PRN (08:45)
[2016-09-08 14:06] VITALS: BP 136/62
--- NOTE | 2016-09-08 16:45 | IPNPDOC ---
Computer Aide Progress Note PROGRESS NOTE DATE OF SERVICE: 09/08/2016 DATE OF ADMISSION: 09/01/2016 Patient Identification: 70-year-old gentleman with multiple medical comorbidities including prior right BKA admitted status post left AKA secondary to non-healing left gangrenous toe. Subjective Patient without complaints. States he slept well. Still with intermittent phantom limb. He is satisfied with current pain regimen. Bowel movements the ostomy back to baseline with Lomotil. Urinating well, frequently. Denies any chest pain, shortness of breath, nausea vomiting, diarrhea, or dysuria. VS temperature 98.7F, pulse 79, respiratory rate of 18, blood pressure 136/62, 98% saturation on room air Physical Exam: GENERAL: Well nourished, well developed, sitting up in WC, no acute distress. HEENT: Normocephalic, atraumatic. PERRL, EOMI CARDIOVASCULAR: S1, S2, regular rate. LUNGS: Clear to auscultation bilaterally, no wheezing rhonchi or rales. ABDOMEN: Soft, nontender, nondistended. Normoactive bowel sounds throughout. MUSCULOSKELETAL: Manual muscle testing: Approximately 5/5 strength bilateral upper limbs. 5/5 right HF, 3/5 Left HF. NEUROLOGICAL: Alert and oriented x 3. Answers all questions appropriately. Able to follow commands without difficulty. SKIN: Diffuse maculopapular lesions mostly on the back with comedones. Labs 09/07/16: reviewed see below Assessment & Plan: 1. Left AKA secondary to nonhealing foot ulcer now with impaired mobility and dysfunctional ADLs: Patient is nonweightbearing on the left residual limb. He is undergoing pre-prosthetic training. Continue physical and occupational therapy. Rehabilitation nursing for bladder, bowel, medication management as well as care. 2. Leukocytosis: Acute. UA was sent on 09/02/2016 and positive for leukocyte esterase as well as bacteria (no squamous epithelials). Unclear why no culture was done at the time. The patient has apparently been on ciprofloxacin since his admission, although it is unclear as to what is being treated. Will obtain new urine sample for culture analysis and culture to evaluate for resistant/ atypical infection with treatment as indicated. Repeat CBC with differential in the morning. Will attempt to clarify why patient is on ciprofloxacin. 3. J pouch - functioning, continue lomotil 4. Pain: DCd oxycodone IR 30 mg as patient was not using and he finds the 15 mg adequate in controlling his breakthrough pain. Continue OxyContin 20 twice a day. Continue gabapentin twice a day. 5. Diet: carb consistent diet. Too late in admission to check prealbumin. 6. Pain Management OxyContin 20mg bid with Oxy IR for breakthrough (as above, decrease the available dose of OxyIR). 7. Hypo-magnesium: Still mildly low. Will increase magnesium supplementation. 8. Anemia (multifactorial): Continue iron supplementation. DISCHARGE DATE: 09/11/16 Has all needed equipment / Vital Signs Vital Sign - Last 24 Hours 09/07/16 09/07/16 09/07/16 09/08/16 17:25 20:00 20:25 06:00 Temp 99.9 98.0 Pulse 78 85 Resp 18 18 18 18 B/P 129/61 136/63 Pulse Ox 96 95 O2 Delivery Room Air Room Air 09/08/16 09/08/16 09/08/16 09/08/16 06:16 06:46 08:40 08:41 Pulse 85 Resp 18 18 18 B/P 136/63 O2 Delivery Room Air 09/08/16 09/08/16 09/08/16 09/08/16 08:42 14:03 14:06 14:35 Temp 98.7 Pulse 85 79 Resp 18 20 18 B/P 136/63 136/62 Pulse Ox 98 O2 Delivery Room Air Room Air Laboratory Data Labs 24H Laboratory Tests 2 09/07/16 20:20: Bedside Glucose (Misc Panel) 123H 09/08/16 06:26: Bedside Glucose (Misc Panel) 217H 09/08/16 11:20: Urine Amorphous Sediment , Urine Appearance HAZY, Urine Color YELLOW, Urine pH 5.0, Urine Specific [place]re 1.011, Urine Protein 1+H, Urine Glucose (UA) NEGATIVE, Urine Ketones NEGATIVE, Urine Urobilinogen 0.2, Urine Bilirubin NEGATIVE, Urine Leukocyte Esterase 2+H, Urine Bacteria (Auto) 1+H, Urine Blood NEGATIVE, Urine Calcium Carbonate Cryst(Auto) , Urine Calcium Oxalate Cryst ( Auto) , Urine Calcium Phosphate Jenna (Auto) , Urine Cellular Casts , Urine Cystine Crystals , Urine Granular Casts (Auto) , Urine Hyaline Casts (Auto) 0, Urine Leucine Crystals , Urine Mucus (Auto) SMALL, Urine Nitrite NEGATIVE, Urine Oval Fat Bodies (Auto) , Urine RBC (Auto) 5H, Urine Renal Epithelial Cells , Urine Sperm (Auto) , Urine Squamous Epithelial Cells 0, Urine Transitional Epithelial Cells , Urine Trichomonas (Auto) , Urine Triple Phosphate Cryst (Auto) , Urine Tyrosine Crystals , Urine Uric Acid Crystals ( Auto) , Urine WBC (Auto) 24H, Urine Waxy Casts (Auto) , Urine Yeast-Like Cells ( Auto) 09/08/16 11:36: Bedside Glucose (Misc Panel) 100 09/08/16 16:36: FSBS Laboratory Tests Test 09/07/16 20:20 09/08/16 06:26 09/08/16 11:36 09/08/16 16:36 Range/Units Bedside Glucose (Misc Panel) 123 217 100 83-110 MG/DL Microbiology Microbiology 09/08/16 Urine Culture, Received Pending Allergies Allergies: Coded Allergies: Atorvastatin (Verified Allergy, Unknown, MYALGIA, 12/11/12) Rofecoxib (Verified Allergy, Unknown, 12/11/12) Rosuvastatin (Verified Allergy, Unknown, MYALGIA, 12/11/12) Simvastatin (Verified Allergy, Unknown, MYALGIA, 12/11/12) Zolpidem (Verified Adverse Reaction, Unknown, HALLUCINATIONS, 12/11/12) Current Medications Current Medications Current Medications Amlodipine Besylate (Norvasc) 5 mg DAILY PO Last administered on 09/08/16 08:41 ; Start 09/02/16 at 09:00; Stop 10/02/16 at 08:59 Ascorbic Acid (Vitamin C) 500 mg BID PO Last administered on 09/08/16 08:42; Start 09/01/16 at 21:00; Stop 10/01/16 at 20:59 Aspirin (Ecotrin) 81 mg DAILY PO Last administered on 09/08/16 08:42; Start at 09:00; Stop 10/02/16 at 08:59 Atenolol (Tenormin) 100 mg DAILY PO Last administered on 09/08/16 08:42; Start 09/02/16 at 09:00; Stop 10/02/16 at 08:59 Calcium Carbonate (Oscal) 500 mg DAILY PO Last administered on 09/08/16 08:41; Start 09/02/16 at 09:00; Stop 10/02/16 at 08:59 Ciprofloxacin (Cipro) 500 mg BID@06,18 PO Last administered on 09/08/16 05:54; Start 09/01/16 at 18:00; Stop 09/15/16 at 17:59 Clopidogrel Bisulfate (PLAVix) 75 mg DAILY PO Last administered on 09/08/16 08: 41; Start 09/02/16 at 09:00; Stop 10/02/16 at 08:59 Dextrose (Dextrose 50%) 25 ml ASDIRECTED PRN IV SEE LABEL COMMENTS; Start at 14:30; Stop 10/01/16 at 14:29 Diazepam (Valium) 5 mg Q6HP PRN PO spasm/tightness Last administered on at 10:40; Start 09/01/16 at 14:00; Stop 09/15/16 at 13:59 Diphenoxylate HCl/ Atropine (Lomotil 2.5mg/ 0.025mg) 1 ea QID PRN PO DIARRHEA Last administered on 09/06/16at 09:04; Start 09/01/16 at 14:00; Stop 09/15/16 at 13:59 Diphenoxylate HCl/ Atropine (Lomotil 2.5mg/ 0.025mg) 2 ea QID PRN PO SEVERE DIARRHEA Last administered on 09/08/16 08:45; Start 09/01/16 at 14:45; Stop 09/15/16 at 14:44 Ferrous Sulfate (Ferrous Sulfate) 325 mg BID PO Last administered on 09/08/16 08:42; Start 09/03/16 at 21:00; Stop 10/03/16 at 20:59 Ferrous Sulfate (Ferrous Sulfate) 325 mg DAILY PO Last administered on at 08:41; Start 09/02/16 at 09:00; Stop 09/03/16 at 13:55; Status DC Fish Oil ([place]-3 (1050mg)) 1 ea DAILY PO Last administered on 09/08/16 08:41; Start 09/02/16 at 09:00; Stop 10/02/16 at 08:59 Gabapentin (Neurontin) 600 mg BID PO Last administered on 09/04/16at 08:32; Start 09/01/16 at 21:00; Stop 09/04/16 at 09:59; Status DC Gabapentin (Neurontin) 600 mg TID PO Last administered on 09/08/16 08:42; Start 09/04/16 at 16:00; Stop 10/04/16 at 15:59 Glucagon (Glucagon) 1 mg ASDIRECTED PRN SC SEE LABEL COMMENTS; Start 09/01/16 at 14:30; Stop 10/01/16 at 14:29 Glucose (Glucose) 16 GM ASDIRECTED PRN PO SEE LABEL COMMENTS; Start 09/01/16 at 14:30; Stop 10/01/16 at 14:29 Home Med (Med Rec Complete!) ASDIRECTED XX ; Start 09/01/16 at 13:30; Stop at 13:33; Status DC Insulin Detemir (Levemir Insulin) 15 units QAM SC Last administered on 08:37; Start 09/02/16 at 09:00; Stop 10/02/16 at 08:59 Insulin Human Lispro (HumaLOG INSULIN) 1 units AC SC ; Start 09/01/16 at 17:30 ; Stop 09/01/16 at 17:30; Status DC Insulin Human Lispro (HumaLOG INSULIN) SEE PROTOCOL TABLE Q6H SC ; Start at 14:30; Stop 09/01/16 at 14:33; Status DC Insulin Human Lispro (HumaLOG INSULIN) See Protocol Table AC SC Last administered on 09/08/16 08:37; Start 09/01/16 at 17:30; Stop 10/01/16 at 17:29 Insulin Human Lispro (HumaLOG INSULIN) See Protocol Table QHS SC ; Start at 21:00; Stop 10/01/16 at 20:59 Levothyroxine Sodium (Synthroid) 0.1 mg DAILY@06 PO Last administered on 05:54; Start 09/02/16 at 06:00; Stop 10/02/16 at 05:59 Lidocaine (Lidoderm Patch) 2 patch DAILY TD Last administered on 09/07/16 08:07 ; Start 09/02/16 at 09:00; Stop 10/02/16 at 08:59 Magnesium Oxide (Mag-Ox) 400 mg BID PO Last administered on 09/08/16 08:42; Start 09/03/16 at 09:00; Stop 10/03/16 at 08:59 Mineral Oil/White Petrolatum (Eucerin) Back diffuse xerode... BID TOP Last administered on 09/08/16 08:43; Start 09/04/16 at 09:00; Stop 10/04/16 at 08:59 Multivitamins (Theragram-M) 1 tab DAILY PO Last administered on 09/08/16 08:42 ; Start 09/02/16 at 09:00; Stop 10/02/16 at 08:59 Multivitamins (Theragram-M) 1 tab DAILY PO ; Start 09/02/16 at 09:00; Stop at 08:59; Status UNV Non-Formulary Medication ( See Comment Field Below ) REMOVE LIDODERM PATCH DAILY@21 XX Last administered on 09/07/16 20:26; Start 09/02/16 at 21:00; Stop 10/02/16 at 20:59 Oxycodone HCl (OxyCONTIN) 20 mg Q12H PO Last administered on 09/08/16 08:40; Start 09/01/16 at 21:00; Stop 09/15/16 at 20:59 Oxycodone HCl (Roxicodone, Oxyir) 15 mg Q4HP PRN PO MODERATE PAIN Last administered on 09/08/16 14:03; Start 09/08/16 at 10:30; Stop 09/15/16 at 10:29 Oxycodone HCl (Roxicodone, Oxyir) 15 mg Q6H PRN PO MODERATE PAIN Last administered on 09/05/16at 23:37; Start 09/01/16 at 14:00; Stop 09/08/16 at 10: 18; Status DC Oxycodone HCl (Roxicodone, Oxyir) 30 mg Q4HP PRN PO SEVERE PAIN (PS 8-10) Last administered on 09/08/16 06:16; Start 09/04/16 at 10:00; Stop 09/08/16 at 10:35 ; Status DC Pantoprazole Sodium (Protonix) 40 mg DAILY PO Last administered on 09/08/16 08: 42; Start 09/02/16 at 09:00; Stop 10/02/16 at 08:59 Pravastatin Sodium (Pravachol) 10 mg QHS PO Last administered on 09/07/16 20:23 ; Start 09/01/16 at 21:00; Stop 10/01/16 at 20:59 Pyridoxine HCl (Vitamin B6) 100 mg BID PO Last administered on 09/08/16 08:41; Start 09/01/16 at 21:00; Stop 10/01/16 at 20:59 Vitamin D (Vitamin D) 6,000 units DAILY PO Last administered on 09/08/16 08:43 ; Start 09/02/16 at 09:00; Stop 10/02/16 at 08:59 TRE SOLIS MD Sep 08, 2016 16:45
[2016-09-08 20:00] VITALS: BP 145/71
[2016-09-08] MEDS: PRAVASTATIN 10 MG TAB PO SCH (20:26)
[2016-09-08] MEDS: **NOTE PATIENT COMMENT** MISC XX SCH (20:27)
[2016-09-09] MEDS: CIPROFLOXACIN 500 MG TAB PO SCH ×2 (05:47→17:00)
[2016-09-09] MEDS: LOMOTIL 2.5MG/0.025MG TABLET PO PRN ×4 (05:47→22:40)
[2016-09-09] MEDS: LEVOTHYROXINE 0.1 MG TAB (100 MCG) PO SCH (05:47)
[2016-09-09] MEDS: oxyCODONE 5MG TAB PO PRN ×2 (05:47→12:02)
[2016-09-09 06:00] VITALS: BP 125/70
[2016-09-09 06:33] LABS: BASO # 0.1 K/mm3 (0.0-0.2); BASO % 0.7 % (0.0-1.0); EOS # 0.5 K/mm3 (0.0-0.50); EOS % 5.7 % (0.0-3.0); LARGE UNSTAINED CELL # 0.3 K/mm3 (0.0-0.4); LARGE UNSTAINED CELL % 3.4 % (0.0-4.0); LYMPH % 22.8 % (24.0-44.0); MEAN CORPUSCULAR HEMOGLOBIN 27.2 pg (27.0-33.0); MEAN CORPUSCULAR HGB CONC 31.9 g/dl (32.0-36.5); MEAN CORPUSCULAR VOLUME 85.3 fl (80.0-96.0); MONO # 0.5 K/mm3 (0.0-0.8); MONO % 6.2 % (0.0-5.0); NEUTROPHILS # 5.2 K/mm3 (1.8-7.7); NEUTROPHILS % 61.1 % (36.0-66.0); PLATELET COUNT, AUTOMATED 323 k/mm3 (150-450); RED CELL DISTRIBUTION WIDTH 14.9 % (11.5-14.5); WHITE BLOOD COUNT 8.5 K/mm3 (4.0-10.0)
[2016-09-09 06:48] LABS: CALCIUM LEVEL 8.7 MG/DL (8.8-10.2); GLOMERULAR FILTRATION RATE 35.2 (>42); MAGNESIUM LEVEL 1.7 MG/DL (1.8-2.4); POTASSIUM SERUM 4.5 MEQ/L (3.5-5.1)
[2016-09-09] MEDS: HumaLOG INSULIN (NovoLOG) PER UNIT SC SCH ×4 (08:25→20:35)
[2016-09-09] MEDS: GABAPENTIN 300 MG CAP PO SCH ×3 (08:26→20:33)
[2016-09-09] MEDS: amLODIPine 5 MG TAB PO SCH (08:26)
[2016-09-09] MEDS: VITAMIN D 1,000 INTERNATIONAL UNITS TABLET PO SCH (08:26)
[2016-09-09] MEDS: PYRIDOXINE 50 MG TAB PO SCH ×2 (08:26→20:33)
[2016-09-09] MEDS: oxyCODONE 20 MG CR TAB PO SCH ×2 (08:26→20:33)
[2016-09-09] MEDS: OYSTER SHELL CALCIUM 500 MG TAB PO SCH (08:27)
[2016-09-09] MEDS: PANTOPRAZOLE 40MG TAB (PROTONIX) PO SCH (08:27)
[2016-09-09] MEDS: OMEGA-3 1050MG CAPSULE PO SCH (08:27)
[2016-09-09] MEDS: FERROUS SULFATE 325MG TAB PO SCH ×2 (08:27→20:33)
[2016-09-09] MEDS: ASCORBIC ACID 500 MG TAB PO SCH ×2 (08:27→20:33)
[2016-09-09] MEDS: MULTIVITAMINS/MINERALS THERAP 1 TAB PO SCH (08:27)
[2016-09-09] MEDS: ASPIRIN 81 MG ENTERIC TAB PO SCH (08:27)
[2016-09-09] MEDS: CLOPIDOGREL 75 MG TAB PO SCH (08:27)
[2016-09-09] MEDS: MAGNESIUM OXIDE 400 MG TAB (MAG-OX) PO SCH ×3 (08:27→20:33)
[2016-09-09] MEDS: ATENOLOL 50 MG TAB PO SCH (08:27)
[2016-09-09] MEDS: LEVEMIR (INSULIN DETEMIR) 1 UNITS/0.01ML SC SCH (08:28)
[2016-09-09] MEDS: LIDOCAINE 5% (LIDODERM) PATCH TD SCH (08:29)
[2016-09-09] MEDS: EUCERIN 120GM CREAM TOP SCH ×2 (08:29→20:34)
[2016-09-09 14:00] VITALS: BP 117/56
--- NOTE | 2016-09-09 15:14 | IPNPDOC ---
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 Subjective No complaints. Slept well. Still with intermittent phantom limb. States Lidoderm patch has no effect. Further states that has tried gabapentin in the past without effect and currently does not feel as if it offers any benefit. Urinating well. Denies any chest pain, shortness of breath, nausea vomiting, diarrhea, or dysuria. VS temperature 96.9F, pulse 72, respiratory rate 18, blood pressure 117/56, 96 % saturation on room air Physical Exam: GENERAL: Well nourished, well developed, sitting up in WC, no acute distress. HEENT: Normocephalic, atraumatic. PERRL, EOMI CARDIOVASCULAR: S1, S2, regular rate. LUNGS: Clear to auscultation bilaterally, no wheezing rhonchi or rales. ABDOMEN: Soft, nontender, nondistended. Normoactive bowel sounds throughout. MUSCULOSKELETAL: Manual muscle testing: Approximately 5/5 strength bilateral upper limbs. 5/5 right HF, 3/5 Left HF. NEUROLOGICAL: Alert and oriented x 3. Answers all questions appropriately. Able to follow commands without difficulty. SKIN: Diffuse maculopapular lesions mostly on the back with comedones. Labs 09/09/16: reviewed, see below UCx 09/08/16: NG Assessment & Plan: 1. Left AKA secondary to non-healing foot ulcer now with impaired mobility and dysfunctional ADLs: Patient is non-weightbearing on the left residual limb. He is undergoing pre-prosthetic training. Continue physical and occupational therapy. Rehabilitation nursing for bladder, bowel, medication management as well as wound care. 2. Leukocytosis: Resolved today. UCx NG. 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 3. J-pouch - functioning, continue lomotil. Continue Cipro. Continue Bacid. 4. Pain: Adequately controlled [Hx: DCd oxycodone IR 30 mg as patient was not using and he found the 15 mg adequate in controlling his breakthrough pain]. Continue OxyContin 20 twice a day. Continue Oxycodone IR 15mg. Start tapering gabapentin 2nd lack efficacy. 5. Diet: carb consistent diet. 6. Hypo-magnesium: Still mildly low. S/p increase magnesium supplementation. 7. Anemia (multifactorial): Continue iron supplementation. DISCHARGE DATE: 09/11/16 Has all needed equipment / Vital Signs Vital Sign - Last 24 Hours 09/08/16 09/08/16 09/08/16 09/09/16 18:40 20:00 20:27 05:47 Temp 99.0 Pulse 80 Resp 20 20 18 18 B/P 145/71 Pulse Ox 96 O2 Delivery Room Air Room Air 09/09/16 09/09/16 09/09/16 09/09/16 06:00 08:26 08:26 08:27 Temp 97.6 Pulse 83 83 83 Resp 20 20 B/P 125/70 125/70 125/70 Pulse Ox 98 O2 Delivery Room Air 09/09/16 09/09/16 09/09/16 12:02 12:32 14:00 Temp 96.9 Pulse 72 Resp 20 20 18 B/P 117/56 Pulse Ox 96 O2 Delivery Room Air Laboratory Data CBC/BMP Laboratory Tests 09/09/16 06:20 Calcium Level 8.7 L, Red Blood Count 3.76 L, Mean Corpuscular Volume 85.3, Mean Corpuscular Hemoglobin 27.2, Mean Corpuscular Hemoglobin Concent 31.9 L, Red Cell Distribution Width 14.9 H, Neutrophils (%) (Auto) 61.1, Lymphocytes (%) ( Auto) 22.8 L, Monocytes (%) (Auto) 6.2 H, Eosinophils (%) (Auto) 5.7 H, Basophils (%) (Auto) 0.7, Neutrophils # (Auto) 5.2, Lymphocytes # (Auto) 2.0, Monocytes # (Auto) 0.5, Eosinophils # (Auto) 0.5, Basophils # (Auto) 0.1 Labs 24H Laboratory Tests 2 09/08/16 16:36: Bedside Glucose (Misc Panel) 165H 09/08/16 20:04: Bedside Glucose (Misc Panel) 173H 09/09/16 06:20: Anion Gap 11, White Blood Count 8.5, Red Blood Count 3.76L, Hemoglobin 10.2L, Hematocrit 32.1L, Mean Corpuscular Volume 85.3, Mean Corpuscular Hemoglobin 27.2 , Mean Corpuscular Hemoglobin Concent 31.9L, Red Cell Distribution Width 14.9H, Platelet Count 323, Neutrophils (%) (Auto) 61.1, Lymphocytes (%) (Auto) 22.8L, Monocytes (%) (Auto) 6.2H, Eosinophils (%) (Auto) 5.7H, Basophils (%) (Auto) 0.7 , Neutrophils # (Auto) 5.2, Lymphocytes # (Auto) 2.0, Monocytes # (Auto) 0.5, Eosinophils # (Auto) 0.5, Basophils # (Auto) 0.1, C-Reactive Protein, Quantitative 3.02H, Blood Urea Nitrogen 36H, Creatinine 2.00H, Sodium Level 143 , Potassium Level 4.5, Chloride Level 110H, Carbon Dioxide Level 22, Calcium Level 8.7L, Glomerular Filtration Rate 35.2L, Large Unclassified Cells # 0.3, Large Unclassified Cells % 3.4, Magnesium Level 1.7L 09/09/16 11:28: Bedside Glucose (Misc Panel) 236H FSBS Laboratory Tests Test 09/08/16 16:36 09/08/16 20:04 09/09/16 11:28 Range/Units Bedside Glucose (Misc Panel) 165 173 236 83-110 MG/DL Microbiology Microbiology 09/08/16 Urine Culture - Final, Complete Allergies Allergies: Coded Allergies: Atorvastatin (Verified Allergy, Unknown, MYALGIA, 12/11/12) Rofecoxib (Verified Allergy, Unknown, 12/11/12) Rosuvastatin (Verified Allergy, Unknown, MYALGIA, 12/11/12) Simvastatin (Verified Allergy, Unknown, MYALGIA, 12/11/12) Zolpidem (Verified Adverse Reaction, Unknown, HALLUCINATIONS, 12/11/12) Current Medications Current Medications Current Medications Amlodipine Besylate (Norvasc) 5 mg DAILY PO Last administered on 09/09/16 08:26 ; Start 09/02/16 at 09:00; Stop 10/02/16 at 08:59 Ascorbic Acid (Vitamin C) 500 mg BID PO Last administered on 09/09/16 08:27; Start 09/01/16 at 21:00; Stop 10/01/16 at 20:59 Aspirin (Ecotrin) 81 mg DAILY PO Last administered on 09/09/16 08:27; Start at 09:00; Stop 10/02/16 at 08:59 Atenolol (Tenormin) 100 mg DAILY PO Last administered on 09/09/16 08:27; Start 09/02/16 at 09:00; Stop 10/02/16 at 08:59 Calcium Carbonate (Oscal) 500 mg DAILY PO Last administered on 09/09/16 08:27; Start 09/02/16 at 09:00; Stop 10/02/16 at 08:59 Ciprofloxacin (Cipro) 500 mg BID@06,18 PO Last administered on 09/09/16 05:47; Start 09/01/16 at 18:00; Stop 09/15/16 at 17:59 Clopidogrel Bisulfate (PLAVix) 75 mg DAILY PO Last administered on 09/09/16 08: 27; Start 09/02/16 at 09:00; Stop 10/02/16 at 08:59 Dextrose (Dextrose 50%) 25 ml ASDIRECTED PRN IV SEE LABEL COMMENTS; Start at 14:30; Stop 10/01/16 at 14:29 Diazepam (Valium) 5 mg Q6HP PRN PO spasm/tightness Last administered on at 10:40; Start 09/01/16 at 14:00; Stop 09/15/16 at 13:59 Diphenoxylate HCl/ Atropine (Lomotil 2.5mg/ 0.025mg) 1 ea QID PRN PO DIARRHEA Last administered on 09/06/16at 09:04; Start 09/01/16 at 14:00; Stop 09/15/16 at 13:59 Diphenoxylate HCl/ Atropine (Lomotil 2.5mg/ 0.025mg) 2 ea QID PRN PO SEVERE DIARRHEA Last administered on 09/09/16 05:47; Start 09/01/16 at 14:45; Stop 09/15/16 at 14:44 Ferrous Sulfate (Ferrous Sulfate) 325 mg BID PO Last administered on 09/09/16 08:27; Start 09/03/16 at 21:00; Stop 10/03/16 at 20:59 Ferrous Sulfate (Ferrous Sulfate) 325 mg DAILY PO Last administered on at 08:41; Start 09/02/16 at 09:00; Stop 09/03/16 at 13:55; Status DC Fish Oil ([place]-3 (1050mg)) 1 ea DAILY PO Last administered on 09/09/16 08:27; Start 09/02/16 at 09:00; Stop 10/02/16 at 08:59 Gabapentin (Neurontin) 300 mg TID PO ; Start 09/09/16 at 16:00; Stop 10/09/16 at 15:59 Gabapentin (Neurontin) 600 mg BID PO Last administered on 09/04/16at 08:32; Start 09/01/16 at 21:00; Stop 09/04/16 at 09:59; Status DC Gabapentin (Neurontin) 600 mg TID PO Last administered on 09/09/16 08:26; Start 09/04/16 at 16:00; Stop 09/09/16 at 10:10; Status DC Glucagon (Glucagon) 1 mg ASDIRECTED PRN SC SEE LABEL COMMENTS; Start 09/01/16 at 14:30; Stop 10/01/16 at 14:29 Glucose (Glucose) 16 GM ASDIRECTED PRN PO SEE LABEL COMMENTS; Start 09/01/16 at 14:30; Stop 10/01/16 at 14:29 Home Med (Med Rec Complete!) ASDIRECTED XX ; Start 09/01/16 at 13:30; Stop at 13:33; Status DC Insulin Detemir (Levemir Insulin) 15 units QAM SC Last administered on 08:28; Start 09/02/16 at 09:00; Stop 10/02/16 at 08:59 Insulin Human Lispro (HumaLOG INSULIN) 1 units AC SC ; Start 09/01/16 at 17:30 ; Stop 09/01/16 at 17:30; Status DC Insulin Human Lispro (HumaLOG INSULIN) SEE PROTOCOL TABLE Q6H SC ; Start at 14:30; Stop 09/01/16 at 14:33; Status DC Insulin Human Lispro (HumaLOG INSULIN) See Protocol Table AC SC Last administered on 09/09/16 12:00; Start 09/01/16 at 17:30; Stop 10/01/16 at 17:29 Insulin Human Lispro (HumaLOG INSULIN) See Protocol Table QHS SC ; Start at 21:00; Stop 10/01/16 at 20:59 Levothyroxine Sodium (Synthroid) 0.1 mg DAILY@06 PO Last administered on 05:47; Start 09/02/16 at 06:00; Stop 10/02/16 at 05:59 Lidocaine (Lidoderm Patch) 2 patch DAILY TD Last administered on 09/07/16 08:07 ; Start 09/02/16 at 09:00; Stop 09/09/16 at 10:10; Status DC Magnesium Oxide (Mag-Ox) 400 mg BID PO Last administered on 09/08/16 08:42; Start 09/03/16 at 09:00; Stop 09/08/16 at 17:22; Status DC Magnesium Oxide (Mag-Ox) 400 mg TID PO Last administered on 09/09/16 08:27; Start 09/08/16 at 21:00; Stop 10/08/16 at 20:59 Mineral Oil/White Petrolatum (Eucerin) Back diffuse xerode... BID TOP Last administered on 09/09/16 08:29; Start 09/04/16 at 09:00; Stop 10/04/16 at 08:59 Multivitamins (Theragram-M) 1 tab DAILY PO Last administered on 09/09/16 08:27 ; Start 09/02/16 at 09:00; Stop 10/02/16 at 08:59 Multivitamins (Theragram-M) 1 tab DAILY PO ; Start 09/02/16 at 09:00; Stop at 08:59; Status UNV Non-Formulary Medication ( See Comment Field Below ) REMOVE LIDODERM PATCH DAILY@21 XX Last administered on 09/07/16 20:26; Start 09/02/16 at 21:00; Stop 10/02/16 at 20:59 Oxycodone HCl (OxyCONTIN) 20 mg Q12H PO Last administered on 09/09/16 08:26; Start 09/01/16 at 21:00; Stop 09/15/16 at 20:59 Oxycodone HCl (Roxicodone, Oxyir) 15 mg Q4HP PRN PO MODERATE PAIN Last administered on 1/3/17at 12:02; Start 09/08/16 at 10:30; Stop 09/15/16 at 10:29 Oxycodone HCl (Roxicodone, Oxyir) 15 mg Q6H PRN PO MODERATE PAIN Last administered on 09/05/16at 23:37; Start 09/01/16 at 14:00; Stop 09/08/16 at 10: 18; Status DC Oxycodone HCl (Roxicodone, Oxyir) 30 mg Q4HP PRN PO SEVERE PAIN (PS 8-10) Last administered on 09/08/16 06:16; Start 09/04/16 at 10:00; Stop 09/08/16 at 10:35 ; Status DC Pantoprazole Sodium (Protonix) 40 mg DAILY PO Last administered on 09/09/16 08: 27; Start 09/02/16 at 09:00; Stop 10/02/16 at 08:59 Pravastatin Sodium (Pravachol) 10 mg QHS PO Last administered on 09/08/16 20:26 ; Start 09/01/16 at 21:00; Stop 10/01/16 at 20:59 Pyridoxine HCl (Vitamin B6) 100 mg BID PO Last administered on 09/09/16 08:26; Start 09/01/16 at 21:00; Stop 10/01/16 at 20:59 Vitamin D (Vitamin D) 6,000 units DAILY PO Last administered on 09/09/16 08:26 ; Start 09/02/16 at 09:00; Stop 10/02/16 at 08:59 TRE SOLIS MD Sep 09, 2016 15:14
[2016-09-09 20:00] VITALS: BP 137/62
[2016-09-09] MEDS: PRAVASTATIN 10 MG TAB PO SCH (20:33)
[2016-09-10] MEDS: oxyCODONE 5MG TAB PO PRN ×4 (01:17→21:29)
[2016-09-10] MEDS: LOMOTIL 2.5MG/0.025MG TABLET PO PRN (06:19)
[2016-09-10] MEDS: CIPROFLOXACIN 500 MG TAB PO SCH ×2 (06:19→17:01)
[2016-09-10] MEDS: LEVOTHYROXINE 0.1 MG TAB (100 MCG) PO SCH (06:20)
[2016-09-10 06:22] VITALS: BP 127/66
[2016-09-10] MEDS: PYRIDOXINE 50 MG TAB PO SCH ×2 (08:12→20:07)
[2016-09-10] MEDS: OYSTER SHELL CALCIUM 500 MG TAB PO SCH (08:12)
[2016-09-10] MEDS: OMEGA-3 1050MG CAPSULE PO SCH (08:12)
[2016-09-10] MEDS: HumaLOG INSULIN (NovoLOG) PER UNIT SC SCH ×4 (08:12→20:10)
[2016-09-10] MEDS: LEVEMIR (INSULIN DETEMIR) 1 UNITS/0.01ML SC SCH (08:12)
[2016-09-10] MEDS: VITAMIN D 1,000 INTERNATIONAL UNITS TABLET PO SCH (08:13)
[2016-09-10] MEDS: oxyCODONE 20 MG CR TAB PO SCH ×2 (08:13→20:08)
[2016-09-10] MEDS: ASCORBIC ACID 500 MG TAB PO SCH ×2 (08:13→20:07)
[2016-09-10] MEDS: PANTOPRAZOLE 40MG TAB (PROTONIX) PO SCH (08:13)
[2016-09-10] MEDS: amLODIPine 5 MG TAB PO SCH (08:13)
[2016-09-10] MEDS: CLOPIDOGREL 75 MG TAB PO SCH (08:13)
[2016-09-10] MEDS: MULTIVITAMINS/MINERALS THERAP 1 TAB PO SCH (08:13)
[2016-09-10] MEDS: FERROUS SULFATE 325MG TAB PO SCH ×2 (08:13→20:07)
[2016-09-10] MEDS: GABAPENTIN 300 MG CAP PO SCH ×2 (08:13→20:07)
[2016-09-10] MEDS: ASPIRIN 81 MG ENTERIC TAB PO SCH (08:14)
[2016-09-10] MEDS: ATENOLOL 50 MG TAB PO SCH (08:14)
[2016-09-10] MEDS: MAGNESIUM OXIDE 400 MG TAB (MAG-OX) PO SCH ×3 (08:14→20:08)
[2016-09-10] MEDS: EUCERIN 120GM CREAM TOP SCH ×2 (08:14→20:08)
--- NOTE | 2016-09-10 11:16 | IPNPDOC ---
[employer] Progress Note PROGRESS NOTE DATE OF SERVICE: 09/10/2016 DATE OF ADMISSION: 09/01/2016 Patient Identification: 70-year-old gentleman with multiple medical comorbidities including prior right BKA admitted status post left AKA secondary to non-healing left gangrenous toe. Subjective No complaints. Feel well. Still with intermittent phantom limb no increase on lower dose of gabapentin (patient reiterates that the gabapentin is ineffectual and requests that I just stop it). Urinating well. Denies any chest pain, shortness of breath, nausea/vomiting, abdominal pain, C/D or dysuria. VS temperature 98.2F, pulse 76, respiratory rate 20, blood pressure 127/66, 100 % saturation on room air Physical Exam: GENERAL: Well nourished, well developed, sitting up in WC, no acute distress. HEENT: Normocephalic, atraumatic. PERRL, EOMI CARDIOVASCULAR: S1, S2, regular rate. LUNGS: Clear to auscultation bilaterally, no wheezing rhonchi or rales. ABDOMEN: Soft, nontender, nondistended. Normoactive bowel sounds throughout. MUSCULOSKELETAL: MMT: ~5/5 strength bilateral upper limbs. 5/5 right HF, 3/5 Left HF. NEUROLOGICAL: Alert and oriented x 3. Answers all questions appropriately. Able to follow commands without difficulty. SKIN: Diffuse maculopapular lesions mostly on the back with comedones. Residual left limb surgical site C/I w tram and sutures, +hypesthesia. Labs 09/09/16: re-reviewed, see below UCx 09/08/16: NG Assessment & Plan: 1. Left AKA secondary to non-healing LL ulcer now with impaired mobility and dysfunctional ADLs: Patient is non-weightbearing on the left residual limb. He is undergoing pre-prosthetic training. Continue physical and occupational therapy. Rehabilitation nursing for bladder, bowel, medication management as well as wound care. 2. Leukocytosis: Resolved. UCx NG. 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 3. J-pouch Continue lomotil. Continue Cipro. Continue Bacid. 4. Pain: Adequately controlled [Hx: DCd oxycodone IR 30 mg as patient was not using and he found the 15 mg adequate in controlling his breakthrough pain; d/c d Lidoderm 09/09/16]. Continue OxyContin 20 twice a day. Continue Oxycodone IR 15mg. Continue tapering gabapentin 2nd lack efficacy. 5. Diet: carb consistent diet. 6. Hypo-magnesium: S/p increase magnesium supplementation 09/08/16. No adverse SE from increase. Recheck in am. 7. Anemia (multifactorial): Continue iron supplementation. DISCHARGE DATE: 09/11/16 Has all needed equipment Vital Signs Vital Sign - Last 24 Hours 09/09/16 09/09/16 09/09/16 09/09/16 12:02 14:00 20:00 20:33 Temp 96.9 97.7 Pulse 72 76 Resp 20 18 18 18 B/P 117/56 137/62 Pulse Ox 96 97 O2 Delivery Room Air Room Air 09/10/16 09/10/16 09/10/16 09/10/16 01:17 06:19 06:22 07:09 Temp 98.2 Pulse 76 Resp 18 18 18 18 B/P 127/66 Pulse Ox 100 O2 Delivery Room Air 09/10/16 09/10/16 09/10/16 08:13 08:13 08:14 Pulse 76 76 Resp 20 B/P 127/66 127/66 Laboratory Data Labs 24H Laboratory Tests 2 09/09/16 11:28: Bedside Glucose (Misc Panel) 236H 09/09/16 16:34: Bedside Glucose (Misc Panel) 168H 09/09/16 20:32: Bedside Glucose (Misc Panel) 137H 09/10/16 06:17: Bedside Glucose (Misc Panel) 134H FSBS Laboratory Tests Test 09/09/16 11:28 09/09/16 16:34 09/09/16 20:32 09/10/16 06:17 Range/Units Bedside Glucose (Misc Panel) 236 168 137 134 83-110 MG/DL Microbiology Microbiology 09/08/16 Urine Culture - Final, Complete Allergies Allergies: Coded Allergies: Atorvastatin (Verified Allergy, Unknown, MYALGIA, 12/11/12) Rofecoxib (Verified Allergy, Unknown, 12/11/12) Rosuvastatin (Verified Allergy, Unknown, MYALGIA, 12/11/12) Simvastatin (Verified Allergy, Unknown, MYALGIA, 12/11/12) Zolpidem (Verified Adverse Reaction, Unknown, HALLUCINATIONS, 4/6/13) Current Medications Current Medications Current Medications Amlodipine Besylate (Norvasc) 5 mg DAILY PO Last administered on 09/10/16 08:13 ; Start 09/02/16 at 09:00; Stop 10/02/16 at 08:59 Ascorbic Acid (Vitamin C) 500 mg BID PO Last administered on 09/10/16 08:13; Start 09/01/16 at 21:00; Stop 10/01/16 at 20:59 Aspirin (Ecotrin) 81 mg DAILY PO Last administered on 09/10/16 08:14; Start at 09:00; Stop 10/02/16 at 08:59 Atenolol (Tenormin) 100 mg DAILY PO Last administered on 09/10/16 08:14; Start 09/02/16 at 09:00; Stop 10/02/16 at 08:59 Calcium Carbonate (Oscal) 500 mg DAILY PO Last administered on 09/10/16 08:12; Start 09/02/16 at 09:00; Stop 10/02/16 at 08:59 Ciprofloxacin (Cipro) 500 mg BID@06,18 PO Last administered on 09/10/16 06:19; Start 09/01/16 at 18:00; Stop 09/15/16 at 17:59 Clopidogrel Bisulfate (PLAVix) 75 mg DAILY PO Last administered on 09/10/16 08: 13; Start 09/02/16 at 09:00; Stop 10/02/16 at 08:59 Dextrose (Dextrose 50%) 25 ml ASDIRECTED PRN IV SEE LABEL COMMENTS; Start at 14:30; Stop 10/01/16 at 14:29 Diazepam (Valium) 5 mg Q6HP PRN PO spasm/tightness Last administered on at 10:40; Start 09/01/16 at 14:00; Stop 09/15/16 at 13:59 Diphenoxylate HCl/ Atropine (Lomotil 2.5mg/ 0.025mg) 1 ea QID PRN PO DIARRHEA Last administered on 09/06/16at 09:04; Start 09/01/16 at 14:00; Stop 09/15/16 at 13:59 Diphenoxylate HCl/ Atropine (Lomotil 2.5mg/ 0.025mg) 2 ea QID PRN PO SEVERE DIARRHEA Last administered on 09/10/16 06:19; Start 09/01/16 at 14:45; Stop 09/15/16 at 14:44 Ferrous Sulfate (Ferrous Sulfate) 325 mg BID PO Last administered on 09/10/16 08:13; Start 09/03/16 at 21:00; Stop 10/03/16 at 20:59 Ferrous Sulfate (Ferrous Sulfate) 325 mg DAILY PO Last administered on at 08:41; Start 09/02/16 at 09:00; Stop 09/03/16 at 13:55; Status DC Fish Oil ([place]-3 (1050mg)) 1 ea DAILY PO Last administered on 09/10/16 08:12; Start 09/02/16 at 09:00; Stop 10/02/16 at 08:59 Gabapentin (Neurontin) 300 mg BID PO ; Start 09/10/16 at 21:00; Stop 10/10/16 at 20:59 Gabapentin (Neurontin) 300 mg TID PO Last administered on 09/10/16 08:13; Start 09/09/16 at 16:00; Stop 09/10/16 at 10:14; Status DC Gabapentin (Neurontin) 600 mg BID PO Last administered on 09/04/16at 08:32; Start 09/01/16 at 21:00; Stop 09/04/16 at 09:59; Status DC Gabapentin (Neurontin) 600 mg TID PO Last administered on 09/09/16 08:26; Start 09/04/16 at 16:00; Stop 09/09/16 at 10:10; Status DC Glucagon (Glucagon) 1 mg ASDIRECTED PRN SC SEE LABEL COMMENTS; Start 09/01/16 at 14:30; Stop 10/01/16 at 14:29 Glucose (Glucose) 16 GM ASDIRECTED PRN PO SEE LABEL COMMENTS; Start 09/01/16 at 14:30; Stop 10/01/16 at 14:29 Home Med (Med Rec Complete!) ASDIRECTED XX ; Start 09/01/16 at 13:30; Stop at 13:33; Status DC Insulin Detemir (Levemir Insulin) 15 units QAM SC Last administered on 08:12; Start 09/02/16 at 09:00; Stop 10/02/16 at 08:59 Insulin Human Lispro (HumaLOG INSULIN) 1 units AC SC ; Start 09/01/16 at 17:30 ; Stop 09/01/16 at 17:30; Status DC Insulin Human Lispro (HumaLOG INSULIN) SEE PROTOCOL TABLE Q6H SC ; Start at 14:30; Stop 09/01/16 at 14:33; Status DC Insulin Human Lispro (HumaLOG INSULIN) See Protocol Table AC SC Last administered on 09/10/16 08:12; Start 09/01/16 at 17:30; Stop 10/01/16 at 17:29 Insulin Human Lispro (HumaLOG INSULIN) See Protocol Table QHS SC ; Start at 21:00; Stop 10/01/16 at 20:59 Levothyroxine Sodium (Synthroid) 0.1 mg DAILY@06 PO Last administered on 06:20; Start 09/02/16 at 06:00; Stop 10/02/16 at 05:59 Lidocaine (Lidoderm Patch) 2 patch DAILY TD Last administered on 09/07/16 08:07 ; Start 09/02/16 at 09:00; Stop 09/09/16 at 10:10; Status DC Magnesium Oxide (Mag-Ox) 400 mg BID PO Last administered on 09/08/16 08:42; Start 09/03/16 at 09:00; Stop 09/08/16 at 17:22; Status DC Magnesium Oxide (Mag-Ox) 400 mg TID PO Last administered on 09/10/16 08:14; Start 09/08/16 at 21:00; Stop 10/08/16 at 20:59 Mineral Oil/White Petrolatum (Eucerin) Back diffuse xerode... BID TOP Last administered on 09/09/16 08:29; Start 09/04/16 at 09:00; Stop 10/04/16 at 08:59 Multivitamins (Theragram-M) 1 tab DAILY PO Last administered on 09/10/16 08:13 ; Start 09/02/16 at 09:00; Stop 10/02/16 at 08:59 Multivitamins (Theragram-M) 1 tab DAILY PO ; Start 09/02/16 at 09:00; Stop at 08:59; Status UNV Non-Formulary Medication ( See Comment Field Below ) REMOVE LIDODERM PATCH DAILY@21 XX Last administered on 09/07/16 20:26; Start 09/02/16 at 21:00; Stop 09/09/16 at 17:02; Status DC Oxycodone HCl (OxyCONTIN) 20 mg Q12H PO Last administered on 09/10/16 08:13; Start 09/01/16 at 21:00; Stop 09/15/16 at 20:59 Oxycodone HCl (Roxicodone, Oxyir) 15 mg Q4HP PRN PO MODERATE PAIN Last administered on 09/10/16 06:19; Start 09/08/16 at 10:30; Stop 09/15/16 at 10:29 Oxycodone HCl (Roxicodone, Oxyir) 15 mg Q6H PRN PO MODERATE PAIN Last administered on 09/05/16at 23:37; Start 09/01/16 at 14:00; Stop 09/08/16 at 10: 18; Status DC Oxycodone HCl (Roxicodone, Oxyir) 30 mg Q4HP PRN PO SEVERE PAIN (PS 8-10) Last administered on 09/08/16 06:16; Start 09/04/16 at 10:00; Stop 09/08/16 at 10:35 ; Status DC Pantoprazole Sodium (Protonix) 40 mg DAILY PO Last administered on 09/10/16 08: 13; Start 09/02/16 at 09:00; Stop 10/02/16 at 08:59 Pravastatin Sodium (Pravachol) 10 mg QHS PO Last administered on 09/09/16 20:33 ; Start 09/01/16 at 21:00; Stop 10/01/16 at 20:59 Pyridoxine HCl (Vitamin B6) 100 mg BID PO Last administered on 09/10/16 08:12; Start 09/01/16 at 21:00; Stop 10/01/16 at 20:59 Vitamin D (Vitamin D) 6,000 units DAILY PO Last administered on 09/10/16 08:13 ; Start 09/02/16 at 09:00; Stop 10/02/16 at 08:59 TRE SOLIS MD Sep 10, 2016 11:16
[2016-09-10 14:00] VITALS: BP_SYST 131; BP_SYST 142; BP_DIAS 60; BP_DIAS 70
[2016-09-10] MEDS ORDERED: MAG400TA PO (15:37)
[2016-09-10] MEDS ORDERED: OXYC1TAB56 PO (15:37)
[2016-09-10] MEDS ORDERED: VITA-130 PO (15:37)
[2016-09-10] MEDS ORDERED: OXYC15TA76 PO (15:37)
[2016-09-10] MEDS ORDERED: FERR325T PO (15:37)
[2016-09-10] MEDS ORDERED: PLAV75TA38 PO (15:37)
[2016-09-10 20:00] VITALS: BP 147/65
[2016-09-10] MEDS: PRAVASTATIN 10 MG TAB PO SCH (20:07)
[2016-09-11 06:00] VITALS: BP 128/54
[2016-09-11] MEDS: CIPROFLOXACIN 500 MG TAB PO SCH ×2 (06:07→17:10)
[2016-09-11] MEDS: LEVOTHYROXINE 0.1 MG TAB (100 MCG) PO SCH (06:07)
[2016-09-11] MEDS: oxyCODONE 5MG TAB PO PRN ×4 (06:08→23:39)
[2016-09-11 07:18] LABS: MEAN CORPUSCULAR HEMOGLOBIN 25.8 pg (27.0-33.0); MEAN CORPUSCULAR HGB CONC 30.2 g/dl (32.0-36.5); MEAN CORPUSCULAR VOLUME 85.4 fl (80.0-96.0); RED CELL DISTRIBUTION WIDTH 14.8 % (11.5-14.5); WHITE BLOOD COUNT 10.2 K/mm3 (4.0-10.0)
[2016-09-11 07:41] LABS: CALCIUM LEVEL 9.3 MG/DL (8.8-10.2); CREATININE FOR GFR 1.77 MG/DL (0.70-1.30); GLOMERULAR FILTRATION RATE 40.6 (>42); MAGNESIUM LEVEL 1.8 MG/DL (1.8-2.4); POTASSIUM SERUM 4.2 MEQ/L (3.5-5.1)
[2016-09-11] MEDS: ATENOLOL 50 MG TAB PO SCH (08:12)
[2016-09-11] MEDS: oxyCODONE 20 MG CR TAB PO SCH ×2 (08:13→20:52)
[2016-09-11] MEDS: OMEGA-3 1050MG CAPSULE PO SCH (08:13)
[2016-09-11] MEDS: VITAMIN D 1,000 INTERNATIONAL UNITS TABLET PO SCH (08:13)
[2016-09-11] MEDS: MULTIVITAMINS/MINERALS THERAP 1 TAB PO SCH (08:13)
[2016-09-11] MEDS: OYSTER SHELL CALCIUM 500 MG TAB PO SCH (08:14)
[2016-09-11] MEDS: CLOPIDOGREL 75 MG TAB PO SCH (08:14)
[2016-09-11] MEDS: ASCORBIC ACID 500 MG TAB PO SCH ×2 (08:14→20:51)
[2016-09-11] MEDS: GABAPENTIN 300 MG CAP PO SCH ×2 (08:14→20:51)
[2016-09-11] MEDS: PANTOPRAZOLE 40MG TAB (PROTONIX) PO SCH (08:14)
[2016-09-11] MEDS: FERROUS SULFATE 325MG TAB PO SCH ×2 (08:14→20:51)
[2016-09-11] MEDS: MAGNESIUM OXIDE 400 MG TAB (MAG-OX) PO SCH ×3 (08:14→20:51)
[2016-09-11] MEDS: amLODIPine 5 MG TAB PO SCH (08:15)
[2016-09-11] MEDS: ASPIRIN 81 MG ENTERIC TAB PO SCH (08:15)
[2016-09-11] MEDS: PYRIDOXINE 50 MG TAB PO SCH ×2 (08:16→20:51)
[2016-09-11] MEDS: LOMOTIL 2.5MG/0.025MG TABLET PO PRN ×2 (08:16→20:53)
[2016-09-11] MEDS: HumaLOG INSULIN (NovoLOG) PER UNIT SC SCH ×4 (08:17→20:50)
[2016-09-11] MEDS: LEVEMIR (INSULIN DETEMIR) 1 UNITS/0.01ML SC SCH (08:17)
[2016-09-11] MEDS: EUCERIN 120GM CREAM TOP SCH ×2 (08:18→20:52)
[2016-09-11 14:00] VITALS: BP 115/56
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
[2016-09-11 20:00] VITALS: BP 140/65
[2016-09-11] MEDS: PRAVASTATIN 10 MG TAB PO SCH (20:51)
[2016-09-12 05:26] VITALS: BP 136/71
[2016-09-12] MEDS: LEVOTHYROXINE 0.1 MG TAB (100 MCG) PO SCH (05:31)
[2016-09-12] MEDS: CIPROFLOXACIN 500 MG TAB PO SCH (05:31)
[2016-09-12] MEDS: CLOPIDOGREL 75 MG TAB PO SCH (08:14)
[2016-09-12] MEDS: MULTIVITAMINS/MINERALS THERAP 1 TAB PO SCH (08:14)
[2016-09-12] MEDS: OYSTER SHELL CALCIUM 500 MG TAB PO SCH (08:14)
[2016-09-12] MEDS: VITAMIN D 1,000 INTERNATIONAL UNITS TABLET PO SCH (08:14)
[2016-09-12] MEDS: oxyCODONE 20 MG CR TAB PO SCH (08:14)
[2016-09-12] MEDS: MAGNESIUM OXIDE 400 MG TAB (MAG-OX) PO SCH (08:14)
[2016-09-12] MEDS: HumaLOG INSULIN (NovoLOG) PER UNIT SC SCH ×2 (08:14→12:00)
[2016-09-12] MEDS: ASPIRIN 81 MG ENTERIC TAB PO SCH (08:14)
[2016-09-12 08:15] VITALS: BP 136/71
[2016-09-12] MEDS: amLODIPine 5 MG TAB PO SCH (08:15)
[2016-09-12] MEDS: GABAPENTIN 300 MG CAP PO SCH (08:15)
[2016-09-12] MEDS: PANTOPRAZOLE 40MG TAB (PROTONIX) PO SCH (08:15)
[2016-09-12] MEDS: FERROUS SULFATE 325MG TAB PO SCH (08:15)
[2016-09-12] MEDS: LEVEMIR (INSULIN DETEMIR) 1 UNITS/0.01ML SC SCH (08:15)
[2016-09-12] MEDS: OMEGA-3 1050MG CAPSULE PO SCH (08:15)
[2016-09-12] MEDS: ATENOLOL 50 MG TAB PO SCH (08:15)
[2016-09-12] MEDS: PYRIDOXINE 50 MG TAB PO SCH (08:16)
[2016-09-12] MEDS: EUCERIN 120GM CREAM TOP SCH (08:16)
[2016-09-12] MEDS: ASCORBIC ACID 500 MG TAB PO SCH (08:16)
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
[2016-09-12] MEDS: oxyCODONE 5MG TAB PO PRN (11:08)
== END 2016-09-12 12:35 | disposition home health service (06) | DRG 560 ==
LOC: M PM&R 12:38
PROVIDERS: ADMIT Pain Medicine Interventional Pain Medicine; ATTEND Physical Medicine & Rehabilitation
DX: Z47.81 Encounter for orthopedic aftercare following surgical amputation (principal); N25.81 Secondary hyperparathyroidism of renal origin; D62 Acute posthemorrhagic anemia; Z89.612 Acquired absence of left leg above knee; E11.51 Type 2 diabetes mellitus with diabetic peripheral angiopathy without gangrene; E03.9 Hypothyroidism, unspecified; R26.9 Unspecified abnormalities of gait and mobility; N18.3 Chronic kidney disease, stage 3 (moderate); I12.9 Hypertensive chronic kidney disease with stage 1 through stage 4 chronic kidney disease, or unspecified chronic kidney disease; E78.5 Hyperlipidemia, unspecified; F32.9 Major depressive disorder, single episode, unspecified; M81.0 Age-related osteoporosis without current pathological fracture; M79.7 Fibromyalgia; N52.9 Male erectile dysfunction, unspecified; D72.829 Elevated white blood cell count, unspecified; H90.3 Sensorineural hearing loss, bilateral; E11.40 Type 2 diabetes mellitus with diabetic neuropathy, unspecified; H93.13 Tinnitus, bilateral; Z95.5 Presence of coronary angioplasty implant and graft; Z93.4 Other artificial openings of gastrointestinal tract status; G54.6 Phantom limb syndrome with pain; Z79.4 Long term (current) use of insulin; Z79.82 Long term (current) use of aspirin; Z79.02 Long term (current) use of antithrombotics/antiplatelets; Z79.899 Other long term (current) drug therapy; Z86.718 Personal history of other venous thrombosis and embolism; Z95.1 Presence of aortocoronary bypass graft; Z89.511 Acquired absence of right leg below knee; Z87.442 Personal history of urinary calculi; E83.42 Hypomagnesemia

== ENCOUNTER → 2016-10-31 | Outpatient (CLI) | payer MEDICARE ==
[~2016-10-31] MED LIST changes: +AMLO5TAB2 PO; +ASPI81TA13 PO; +ATEN100T PO; +CALC12502 PO; +CIPR500T89 PO; +CO Q100C10 PO; +FERR325T PO; +LANTINJ4 SC; +LEVO100T5 PO; +MAG400TA PO; +NOVOINJ3 SC; +OMEG10002 PO; +OXYC15TA76 PO; +OXYC1TAB56 PO; +PANT40TA2 PO; +PLAV75TA38 PO; +PRAV10TA PO; +VITA-130 PO; +VITA30004 PO
[2016-10-31 10:31] LABS: BASO # 0.1 K/mm3 (0.0-0.2); BASO % 0.6 % (0.0-1.0); EOS # 0.3 K/mm3 (0.0-0.50); EOS % 3.4 % (0.0-3.0); LARGE UNSTAINED CELL # 0.1 K/mm3 (0.0-0.4); LARGE UNSTAINED CELL % 1.4 % (0.0-4.0); LYMPH # 1.9 K/mm3 (1.5-4.5); LYMPH % 17.1 % (24.0-44.0); MEAN CORPUSCULAR HEMOGLOBIN 27.7 pg (27.0-33.0); MEAN CORPUSCULAR HGB CONC 33.5 g/dl (32.0-36.5); MEAN CORPUSCULAR VOLUME 82.6 fl (80.0-96.0); MONO # 0.5 K/mm3 (0.0-0.8); MONO % 5.4 % (0.0-5.0); NEUTROPHILS # 7.2 K/mm3 (1.8-7.7); NEUTROPHILS % 72.1 % (36.0-66.0); PLATELET COUNT, AUTOMATED 241 k/mm3 (150-450); RED CELL DISTRIBUTION WIDTH 14.1 % (11.5-14.5)
[2016-10-31 11:14] LABS: ALBUMIN 3.5 GM/DL (3.2-5.2); ALBUMIN/GLOBULIN RATIO 0.92 (1.00-1.93); ALKALINE PHOSPHATASE 76 U/L (45-117); ALT/SGPT 15 U/L (12-78); ANION GAP 10 MEQ/L (8-16); AST/SGOT 14 U/L (15-37); BILIRUBIN,TOTAL 0.4 MG/DL (0.2-1.0); BLOOD UREA NITROGEN 21 MG/DL (7-18); CALCIUM LEVEL 9.4 MG/DL (8.8-10.2); CARBON DIOXIDE LEVEL 25 MEQ/L (21-32); CHLORIDE LEVEL 109 MEQ/L (98-107); CHOLESTEROL LEVEL 157 MG/DL (<200); CREATININE FOR GFR 1.17 MG/DL (0.70-1.30); FREE T4 1.42 NG/DL (0.76-1.46); GLOMERULAR FILTRATION RATE > 60.0 (>42); GLUCOSE, FASTING 158 MG/DL (83-110); POTASSIUM SERUM 4.2 MEQ/L (3.5-5.1); SODIUM LEVEL 144 MEQ/L (136-145); TOTAL PROTEIN 7.3 GM/DL (6.4-8.2); TRIGLYCERIDES LEVEL 142 MG/DL (<150)
== END ==
LOC: M SMT 08:10
PROVIDERS: ATTEND Family Medicine
DX: E11.59 Type 2 diabetes mellitus with other circulatory complications (principal); E78.5 Hyperlipidemia, unspecified; E03.9 Hypothyroidism, unspecified; Z12.5 Encounter for screening for malignant neoplasm of prostate
CPT/HCPCS: 36415; 80053; 80061; 83036; 84439; 84443; 85025; G0103

== ENCOUNTER 2016-12-17 11:39 | Emergency (ER) | payer MEDICARE ==
[~2016-12-17] VITALS: Ht 172.7 cm; Wt 63.0 kg
[2016-12-17 13:29] LABS: BASO # 0.1 K/mm3 (0.0-0.2); BASO % 0.6 % (0.0-1.0); EOS # 0.2 K/mm3 (0.0-0.50); EOS % 1.9 % (0.0-3.0); LARGE UNSTAINED CELL # 0.2 K/mm3 (0.0-0.4); LARGE UNSTAINED CELL % 1.5 % (0.0-4.0); LYMPH # 1.7 K/mm3 (1.5-4.5); LYMPH % 14.2 % (24.0-44.0); MEAN CORPUSCULAR VOLUME 82.1 fl (80.0-96.0); MONO # 0.6 K/mm3 (0.0-0.8); MONO % 5.3 % (0.0-5.0); NEUTROPHILS # 8.1 K/mm3 (1.8-7.7); NEUTROPHILS % 76.4 % (36.0-66.0); PLATELET COUNT, AUTOMATED 236 k/mm3 (150-450); RED CELL DISTRIBUTION WIDTH 14.2 % (11.5-14.5); WHITE BLOOD COUNT 10.5 K/mm3 (4.0-10.0)
--- NOTE | 2016-12-17 13:52 | REP ---
CHEST, TWO VIEWS: Two views of the chest are performed. Comparison made with multiple prior exams, the most recently 05/05/2016. There is cardiomegaly. There is vascular congestion and interstitial edema diffusely. There are small effusions bilaterally. Multiple sternal wires and mediastinal clips are present. There is some tortuosity of the thoracic aorta. There are mild degenerative changes of the spine. IMPRESSION: CHF with interstitial edema and small effusions. Signed by Kobe James MD 12/17/2016 02:29 P
[2016-12-17 14:02] LABS: ANION GAP 8 MEQ/L (8-16); BLOOD UREA NITROGEN 22 MG/DL (7-18); CALCIUM LEVEL 9.1 MG/DL (8.8-10.2); CARBON DIOXIDE LEVEL 24 MEQ/L (21-32); CHLORIDE LEVEL 111 MEQ/L (98-107); CREATININE FOR GFR 1.17 MG/DL (0.70-1.30); GLOMERULAR FILTRATION RATE > 60.0 (>42); GLUCOSE, FASTING 85 MG/DL (83-110); POTASSIUM SERUM 3.8 MEQ/L (3.5-5.1); SODIUM LEVEL 143 MEQ/L (136-145)
[2016-12-17 14:07] VITALS: BP 146/74
[2016-12-17] MEDS ORDERED: LASI40TA PO (14:43)
== END 2016-12-17 14:51 | disposition home or self-care (01) ==
LOC: M ED 13:03
DX: I50.9 Heart failure, unspecified (principal); J81.0 Acute pulmonary edema; I51.7 Cardiomegaly; J90 Pleural effusion, not elsewhere classified; I12.9 Hypertensive chronic kidney disease with stage 1 through stage 4 chronic kidney disease, or unspecified chronic kidney disease; E10.9 Type 1 diabetes mellitus without complications; I25.2 Old myocardial infarction; N18.3 Chronic kidney disease, stage 3 (moderate); E03.9 Hypothyroidism, unspecified; Z96.9 Presence of functional implant, unspecified; Z79.4 Long term (current) use of insulin; Z79.899 Other long term (current) drug therapy; Z79.82 Long term (current) use of aspirin; Z88.8 Allergy status to other drugs, medicaments and biological substances; Z87.442 Personal history of urinary calculi; Z95.1 Presence of aortocoronary bypass graft; Z86.718 Personal history of other venous thrombosis and embolism; Z98.890 Other specified postprocedural states; Z87.891 Personal history of nicotine dependence

== ENCOUNTER → 2016-12-31 | Outpatient (CLI) | payer MEDICARE ==
[~2016-12-31] MED LIST changes: +LASI40TA PO
[2016-12-31 20:00] LABS: CALCIUM LEVEL 9.5 MG/DL (8.8-10.2); CREATININE FOR GFR 1.73 MG/DL (0.70-1.30); GLOMERULAR FILTRATION RATE 41.5 (>42); POTASSIUM SERUM 5.1 MEQ/L (3.5-5.1)
== END ==
LOC: M SMT 13:39
PROVIDERS: ATTEND Internal Medicine Cardiovascular Disease
DX: I50.9 Heart failure, unspecified (principal)

== ENCOUNTER → 2017-02-06 | Outpatient (CLI) | payer MEDICARE ==
[2017-02-06 13:44] LABS: BASO # 0.1 K/mm3 (0.0-0.2); BASO % 0.8 % (0.0-1.0); EOS # 0.4 K/mm3 (0.0-0.50); EOS % 3.5 % (0.0-3.0); LARGE UNSTAINED CELL # 0.3 K/mm3 (0.0-0.4); LARGE UNSTAINED CELL % 2.5 % (0.0-4.0); LYMPH # 2.5 K/mm3 (1.5-4.5); LYMPH % 25.1 % (24.0-44.0); MEAN CORPUSCULAR HEMOGLOBIN 28.3 pg (27.0-33.0); MEAN CORPUSCULAR HGB CONC 33.1 g/dl (32.0-36.5); MEAN CORPUSCULAR VOLUME 85.6 fl (80.0-96.0); MONO # 0.6 K/mm3 (0.0-0.8); MONO % 6.4 % (0.0-5.0); NEUTROPHILS # 6.2 K/mm3 (1.8-7.7); NEUTROPHILS % 61.7 % (36.0-66.0); PLATELET COUNT, AUTOMATED 256 k/mm3 (150-450); RED CELL DISTRIBUTION WIDTH 13.9 % (11.5-14.5)
[2017-02-06 14:09] LABS: ALBUMIN 3.5 GM/DL (3.2-5.2); ALBUMIN/GLOBULIN RATIO 0.92 (1.00-1.93); BILIRUBIN,TOTAL 0.3 MG/DL (0.2-1.0); CALCIUM LEVEL 9.5 MG/DL (8.8-10.2); CREATININE FOR GFR 1.83 MG/DL (0.70-1.30); GLOMERULAR FILTRATION RATE 38.9 (>42); TOTAL PROTEIN 7.3 GM/DL (6.4-8.2)
[2017-02-06 14:11] LABS: POTASSIUM SERUM 5.4 MEQ/L (3.5-5.1)
== END ==
LOC: M SMT 08:45
PROVIDERS: ATTEND Family Medicine
DX: E11.59 Type 2 diabetes mellitus with other circulatory complications (principal); E78.5 Hyperlipidemia, unspecified

== ENCOUNTER → 2017-03-11 | Outpatient (CLI) | payer MEDICARE ==
[~2017-03-11] MED LIST changes: -ASPI81TA13 PO; +ASPI81TA24 PO; +CIPR-249 PO; -CIPR500T89 PO; +FERR1TAB8 PO; -FERR325T PO; +OXYC-404 PO; -OXYC1TAB56 PO; +PLAV1TAB2 PO; -PLAV75TA38 PO; -PRAV10TA PO; +PRAV10TA4 PO; -VITA-130 PO; +VITA500T PO
[2017-03-11 10:43] LABS: CALCIUM LEVEL 9.6 MG/DL (8.8-10.2); CREATININE FOR GFR 1.61 MG/DL (0.70-1.30); GLOMERULAR FILTRATION RATE 45.1 (>42); POTASSIUM SERUM 4.7 MEQ/L (3.5-5.1)
== END ==
LOC: M SMT 08:20
PROVIDERS: ATTEND Physician Assistant
DX: I50.32 Chronic diastolic (congestive) heart failure (principal)

== ENCOUNTER → 2017-04-21 | Outpatient (REF) | payer MEDICARE ==
[2017-04-21 19:47] LABS: PERCENT SATURATION 38.4 % (19.7-50.0)
== END ==
LOC: M LAB REF 17:17
PROVIDERS: ATTEND Internal Medicine Nephrology
DX: D50.9 Iron deficiency anemia, unspecified (principal)

== ENCOUNTER → 2017-05-22 | Outpatient (CLI) | payer MEDICARE ==
[2017-05-22 13:44] LABS: BASO # 0.1 K/mm3 (0.0-0.2); BASO % 1.1 % (0.0-1.0); EOS # 0.4 K/mm3 (0.0-0.50); EOS % 4.8 % (0.0-3.0); LARGE UNSTAINED CELL # 0.2 K/mm3 (0.0-0.4); LARGE UNSTAINED CELL % 2.7 % (0.0-4.0); LYMPH # 2.1 K/mm3 (1.5-4.5); LYMPH % 23.8 % (24.0-44.0); MEAN CORPUSCULAR HEMOGLOBIN 27.6 pg (27.0-33.0); MEAN CORPUSCULAR HGB CONC 32.5 g/dl (32.0-36.5); MONO # 0.6 K/mm3 (0.0-0.8); MONO % 7.3 % (0.0-5.0); NEUTROPHILS # 4.7 K/mm3 (1.8-7.7); NEUTROPHILS % 60.4 % (36.0-66.0); PLATELET COUNT, AUTOMATED 211 k/mm3 (150-450); RED CELL DISTRIBUTION WIDTH 13.9 % (11.5-14.5); WHITE BLOOD COUNT 7.8 K/mm3 (4.0-10.0)
[2017-05-22 13:54] LABS: ALBUMIN 3.6 GM/DL (3.2-5.2); ALBUMIN/GLOBULIN RATIO 0.92 (1.00-1.93); BILIRUBIN,TOTAL 0.3 MG/DL (0.2-1.0); CALCIUM LEVEL 9.2 MG/DL (8.8-10.2); CREATININE FOR GFR 1.48 MG/DL (0.70-1.30); FREE T4 1.28 NG/DL (0.76-1.46); GLOMERULAR FILTRATION RATE 49.7 (>42); POTASSIUM SERUM 4.4 MEQ/L (3.5-5.1); TOTAL PROTEIN 7.5 GM/DL (6.4-8.2)
== END ==
LOC: M SMT 09:41
PROVIDERS: ATTEND Physician Assistant
DX: E11.59 Type 2 diabetes mellitus with other circulatory complications (principal); N18.3 Chronic kidney disease, stage 3 (moderate); I25.10 Atherosclerotic heart disease of native coronary artery without angina pectoris

== ENCOUNTER → 2017-07-07 | Outpatient (CLI) | payer MEDICARE | LOC: M SMT 13:08 | PROVIDERS: ATTEND Internal Medicine Cardiovascular Disease | DX: R07.9 Chest pain, unspecified (principal) ==

== ENCOUNTER → 2017-07-23 | Outpatient (CLI) | payer MEDICARE ==
--- NOTE | 2017-07-23 13:47 | REP ---
Clinical: Cough. Technique: PA and lateral. Comparison: 07/07/2017. Findings: Mediastinum and cardiac silhouette are stable with evidence for cardiomegaly as well as prior sternotomy and CABG. Lung wilder demonstrate chronic increased interstitial markings and prominent pulmonary vasculature with cephalization suggesting possible pulmonary venous congestion and early interstitial edema. Correlation is recommended. No focal consolidation, effusion, or pneumothorax. Skeletal structures demonstrate age-related changes. Impression: Cannot exclude mild pulmonary vascular congestion and early interstitial edema. Cardiomegaly. Signed by Ramiro Gardner MD 07/23/2017 01:39 P
== END ==
LOC: M SMT 12:08
PROVIDERS: ATTEND Family Medicine
DX: R05 Cough (principal)

== ENCOUNTER → 2017-08-27 | Outpatient (CLI) | payer MEDICARE ==
[2017-08-27 13:55] LABS: ALBUMIN 3.4 GM/DL (3.2-5.2); ALBUMIN/GLOBULIN RATIO 0.85 (1.00-1.93); BILIRUBIN,TOTAL 0.4 MG/DL (0.2-1.0); CREATININE FOR GFR 1.34 MG/DL (0.70-1.30); FREE T4 1.29 NG/DL (0.76-1.46); GLOMERULAR FILTRATION RATE 55.8 (>42); POTASSIUM SERUM 4.7 MEQ/L (3.5-5.1); TOTAL PROTEIN 7.4 GM/DL (6.4-8.2)
== END ==
LOC: M SMT 08:59
PROVIDERS: ATTEND Family Medicine
DX: E11.59 Type 2 diabetes mellitus with other circulatory complications (principal); E78.5 Hyperlipidemia, unspecified; E03.9 Hypothyroidism, unspecified

== ENCOUNTER → 2017-11-20 | Outpatient (CLI) | payer MEDICARE ==
[2017-11-20 17:52] LABS: ANION GAP 10 MEQ/L (8-16); BLOOD UREA NITROGEN 31 MG/DL (7-18); CALCIUM LEVEL 8.9 MG/DL (8.8-10.2); CARBON DIOXIDE LEVEL 22 MEQ/L (21-32); CHLORIDE LEVEL 112 MEQ/L (98-107); CREATININE FOR GFR 1.38 MG/DL (0.70-1.30); GLOMERULAR FILTRATION RATE 53.8 (>42); GLUCOSE, FASTING 89 MG/DL (70-100); POTASSIUM SERUM 4.3 MEQ/L (3.5-5.1); SODIUM LEVEL 144 MEQ/L (136-145)
[2017-11-20 17:56] LABS: BASO # 0.1 10^3/uL (0.0-0.2); BASO % 1.2 % (0.0-1.0); EOS # 0.3 10^3/uL (0.0-0.50); EOS % 3.8 % (0.0-3.0); HEMATOCRIT 45.5 % (42.0-52.0); HEMOGLOBIN 14.7 g/dl (14.0-18.0); IMMATURE GRANULOCYTE % 0.2 % (0-3.0); LYMPH # 1.6 10^3/uL (1.5-4.5); LYMPH % 18.9 % (24.0-44.0); MEAN CORPUSCULAR HEMOGLOBIN 26.9 pg (27.0-33.0); MEAN CORPUSCULAR HGB CONC 32.3 g/dl (32.0-36.5); MEAN CORPUSCULAR VOLUME 83.3 fl (80.0-96.0); MONO # 0.6 10^3/uL (0.0-0.8); MONO % 7.1 % (0.0-5.0); NEUTROPHILS # 5.7 10^3/uL (1.8-7.7); NEUTROPHILS % 68.8 % (36.0-66.0); PLATELET COUNT, AUTOMATED 244 10^3/uL (150-450); RED BLOOD COUNT 5.46 10^6/uL (4.30-6.10); RED CELL DISTRIBUTION WIDTH 13.8 % (11.5-14.5); WHITE BLOOD COUNT 8.3 10^3/uL (4.0-10.0)
== END ==
LOC: M SMT 12:08
DX: I42.9 Cardiomyopathy, unspecified (principal)
CPT/HCPCS: 80048

== ENCOUNTER → 2018-03-15 | Outpatient (CLI) | payer MEDICARE ==
[2018-03-15 13:50] LABS: ALBUMIN 3.4 GM/DL (3.2-5.2); ALBUMIN/GLOBULIN RATIO 0.92 (1.00-1.93); ALKALINE PHOSPHATASE 79 U/L (45-117); ALT/SGPT 19 U/L (12-78); ANION GAP 7 MEQ/L (8-16); AST/SGOT 12 U/L (7-37); BILIRUBIN,TOTAL 0.3 MG/DL (0.2-1.0); BLOOD UREA NITROGEN 56 MG/DL (7-18); CALCIUM LEVEL 9.2 MG/DL (8.8-10.2); CARBON DIOXIDE LEVEL 21 MEQ/L (21-32); CHLORIDE LEVEL 113 MEQ/L (98-107); CHOLESTEROL LEVEL 125 MG/DL (<200); CHOLESTEROL RISK RATIO 4.807 (<5); CREATININE FOR GFR 1.56 MG/DL (0.70-1.30); GLOMERULAR FILTRATION RATE 46.7 (>42); GLUCOSE, FASTING 157 MG/DL (70-100); HDL CHOLESTEROL 26 MG/DL (>40); LDL CHOLESTEROL 61.2 MG/DL (<100); NON-HDL-C 99 MG/DL; SODIUM LEVEL 141 MEQ/L (136-145); TOTAL PROTEIN 7.1 GM/DL (6.4-8.2); TRIGLYCERIDES LEVEL 189 MG/DL (<150)
[2018-03-15 14:42] LABS: CREATININE, URINE 15.1 MG/DL
== END ==
LOC: M SMT 09:24
DX: E11.59 Type 2 diabetes mellitus with other circulatory complications (principal); E78.5 Hyperlipidemia, unspecified
CPT/HCPCS: 80053

== ENCOUNTER 2018-03-19 21:40 | Inpatient (IN) | payer MEDICARE ==
[2018-03-19] MEDS: NS 1,000 ML IV (22:05)
[2018-03-19 23:06] LABS: BASO % 0.2 % (0.0-1.0); EOS # 0.1 10^3/uL (0.0-0.50); EOS % 0.6 % (0.0-3.0); HEMOGLOBIN 15.2 g/dl (13.5-17.5); IMMATURE GRANULOCYTE % 0.3 % (0-3.0); LYMPH % 8.2 % (24.0-44.0); MEAN CORPUSCULAR HEMOGLOBIN 27.3 pg (27.0-33.0); MEAN CORPUSCULAR VOLUME 82.7 fl (80.0-96.0); MONO % 17.7 % (0.0-5.0); NEUTROPHILS # 9.1 10^3/uL (1.8-7.7); PLATELET COUNT, AUTOMATED 297 10^3/uL (150-450); RED BLOOD COUNT 5.56 10^6/uL (4.30-6.10); RED CELL DISTRIBUTION WIDTH 13.2 % (11.5-14.5); WHITE BLOOD COUNT 12.5 10^3/uL (4.0-10.0)
[2018-03-19 23:22] LABS: INR 1.14; PROTHROMBIN TIME 14.7 SECONDS (12.1-14.4)
[2018-03-19 23:23] LABS: PARTIAL THROMBOPLASTIN TIME 39.3 SECONDS (25.4-37.6)
[2018-03-19 23:31] LABS: ALBUMIN 4.1 GM/DL (3.2-5.2); ALBUMIN/GLOBULIN RATIO 0.77 (1.00-1.93); ALKALINE PHOSPHATASE 110 U/L (45-117); ALT/SGPT 18 U/L (12-78); ANION GAP 20 MEQ/L (8-16); AST/SGOT 12 U/L (7-37); BILIRUBIN,DIRECT 0.1 MG/DL (0.0-0.2); BILIRUBIN,TOTAL 0.3 MG/DL (0.2-1.0); BLOOD UREA NITROGEN 122 MG/DL (7-18); CALCIUM LEVEL 9.4 MG/DL (8.8-10.2); CARBON DIOXIDE LEVEL 9 MEQ/L (21-32); CHLORIDE LEVEL 95 MEQ/L (98-107); GLUCOSE, FASTING 267 MG/DL (70-100); LIPASE 280 U/L (73-393); SODIUM LEVEL 124 MEQ/L (136-145); TOTAL PROTEIN 9.4 GM/DL (6.4-8.2)
[2018-03-19 23:41] LABS: POTASSIUM SERUM 6.3 MEQ/L (3.5-5.1)
[2018-03-19 23:45] LABS: MONO # 2.2 10^3/uL (0.0-0.8); POSITIVE DIFF POS FLAG
[2018-03-20 00:10] LABS: ABG BASE EXCESS -20.3 (-2.0-2.0); ABG HCO3 6.4 MEQ/L (22.0-26.0); ABG O2 SATURATION 99.2 % (95.0-99.0); ABG PARTIAL PRESSURE O2 164.6 mmHg (75.0-100.0); ABG STANDARD HCO3 10.3 MEQ/L (22.0-26.0); ABG TOTAL CO2 6.9 MEQ/L (23.0-31.0)
[2018-03-20 00:12] LABS: ABG pH (ARTERIAL) 7.149 UNITS (7.350-7.450)
[2018-03-20 00:13] LABS: ABG PARTIAL PRESSURE CO2 18.7 mmHg (35.0-45.0)
[2018-03-20] MEDS: SODIUM BICARBONATE 75 MEQ in NS 0.45% 1,000 ML IV ×5 (00:59→21:12)
[2018-03-20] MEDS: MAALOX 30 ML SUSP *UDC PO (00:59)
[2018-03-20] MEDS ORDERED: GLUCOSE 4 GM CHEW TABLET PO (01:15)
[2018-03-20] MEDS ORDERED: GLUCAGON FOR INJ 1 MG VIAL (J1610) SC (01:15)
[2018-03-20] MEDS ORDERED: DEXTROSE 50% 50 ML SYRINGE IV (01:15)
[2018-03-20] MEDS: GASTROGRAFIN SOLUTION 30ML (Q9963) PO ×2 (02:05→02:35)
[2018-03-20] MEDS ORDERED: GASTROGRAFIN SOLUTION 30ML (Q9963) PO (02:30)
[2018-03-20 05:53] LABS: ANION GAP 15 MEQ/L (8-16); BLOOD UREA NITROGEN 122 MG/DL (7-18); CALCIUM LEVEL 8.4 MG/DL (8.8-10.2); CARBON DIOXIDE LEVEL 13 MEQ/L (21-32); CHLORIDE LEVEL 97 MEQ/L (98-107); CREATININE FOR GFR 7.17 MG/DL (0.70-1.30); GLUCOSE, FASTING 247 MG/DL (70-100); SODIUM LEVEL 125 MEQ/L (136-145)
[2018-03-20] MEDS ORDERED: VANCOMYCIN ORAL SOL 250MG/5ML ORAL SYRINGE PO (06:00)
[2018-03-20] MEDS: HEPARIN SOD (PORCINE) 5000 UNITS/ML VIAL SC ×3 (06:00→21:13)
[2018-03-20] MEDS: metroNIDAZOLE (FLAGYL) 500 MG TAB PO ×3 (06:00→21:12)
[2018-03-20 06:03] LABS: POTASSIUM SERUM 5.3 MEQ/L (3.5-5.1)
[2018-03-20 06:04] LABS: ERYTHROCYTE SEDIMENTATION RATE 8 mm/hr (0-20)
[2018-03-20 06:06] LABS: C REACTIVE PROTEIN QUANTITATIV 9.45 MG/DL (0.00-0.30)
[2018-03-20 06:06] LABS: THYROID STIMULATING HORMONE 0.904 uIU/ML (0.358-3.740)
[2018-03-20] MEDS: methylPREDNISolone INJ 125 MG/2 ML VIAL (J2930) IV (08:57)
[2018-03-20] MEDS: MULTIVITAMINS/MINERALS THERAP 1 TAB PO (08:57)
[2018-03-20] MEDS: LEVOTHYROXINE 100MCG TABLET (0.1MG) PO (08:57)
[2018-03-20] MEDS: CIPROFLOXACIN 500 MG TAB PO (08:58)
[2018-03-20] MEDS: ASPIRIN 81 MG ENTERIC TAB PO (08:58)
[2018-03-20] MEDS: FERROUS SULFATE 325MG TAB PO ×3 (08:58→21:15)
[2018-03-20] MEDS: VITAMIN D 1,000 INTERNATIONAL UNITS TABLET PO (08:58)
[2018-03-20] MEDS: ATENOLOL 50 MG TAB PO (08:58)
[2018-03-20] MEDS: PANTOPRAZOLE 40MG TAB (PROTONIX) PO (08:58)
[2018-03-20] MEDS: CLOPIDOGREL 75 MG TAB PO (08:58)
[2018-03-20 09:00] LABS: BEDSIDE GLUCOSE 172 MG/DL (83-110)
[2018-03-20] MEDS ORDERED: predniSONE 20 MG TAB PO (09:00)
[2018-03-20] MEDS: PRAVASTATIN 20 MG TAB PO (09:00)
[2018-03-20] MEDS: LEVEMIR (INSULIN DETEMIR) 1 UNITS/0.01ML SC (09:11)
[2018-03-20 09:18] LABS: ABG HCO3 9.6 MEQ/L (22.0-26.0); ABG O2 SATURATION 99.3 % (95.0-99.0); ABG STANDARD HCO3 13.9 MEQ/L (22.0-26.0); ABG TOTAL CO2 10.1 MEQ/L (23.0-31.0); ABG pH (ARTERIAL) 7.317 UNITS (7.350-7.450)
[2018-03-20 09:19] LABS: ABG PARTIAL PRESSURE CO2 19.1 mmHg (35.0-45.0)
[2018-03-20 09:26] LABS: BASO % 0.4 % (0.0-1.0); EOS # 0.1 10^3/uL (0.0-0.50); EOS % 1.4 % (0.0-3.0); HEMATOCRIT 39.9 % (42.0-52.0); HEMOGLOBIN 13.7 g/dl (13.5-17.5); IMMATURE GRANULOCYTE % 0.2 % (0-3.0); LYMPH # 1.2 10^3/uL (1.5-4.5); LYMPH % 12.8 % (24.0-44.0); MEAN CORPUSCULAR HEMOGLOBIN 27.3 pg (27.0-33.0); MEAN CORPUSCULAR HGB CONC 34.3 g/dl (32.0-36.5); MEAN CORPUSCULAR VOLUME 79.5 fl (80.0-96.0); MONO % 23.3 % (0.0-5.0); NEUTROPHILS # 5.7 10^3/uL (1.8-7.7); NEUTROPHILS % 61.9 % (36.0-66.0); PLATELET COUNT, AUTOMATED 235 10^3/uL (150-450); RED BLOOD COUNT 5.02 10^6/uL (4.30-6.10); RED CELL DISTRIBUTION WIDTH 13.1 % (11.5-14.5); WHITE BLOOD COUNT 9.2 10^3/uL (4.0-10.0)
[2018-03-20 09:48] LABS: ALBUMIN 3.1 GM/DL (3.2-5.2); ALBUMIN/GLOBULIN RATIO 0.66 (1.00-1.93); ALKALINE PHOSPHATASE 80 U/L (45-117); ALT/SGPT 13 U/L (12-78); ANION GAP 16 MEQ/L (8-16); AST/SGOT 11 U/L (7-37); BILIRUBIN,TOTAL 0.3 MG/DL (0.2-1.0); BLOOD UREA NITROGEN 117 MG/DL (7-18); CALCIUM LEVEL 8.3 MG/DL (8.8-10.2); CARBON DIOXIDE LEVEL 14 MEQ/L (21-32); CHLORIDE LEVEL 96 MEQ/L (98-107); CREATININE FOR GFR 6.59 MG/DL (0.70-1.30); GLOMERULAR FILTRATION RATE 8.9 (>42); GLUCOSE, FASTING 174 MG/DL (70-100); MAGNESIUM LEVEL 1.9 MG/DL (1.8-2.4); POTASSIUM SERUM 4.3 MEQ/L (3.5-5.1); SODIUM LEVEL 126 MEQ/L (136-145); TOTAL PROTEIN 7.8 GM/DL (6.4-8.2)
[2018-03-20 09:50] LABS: LACTIC ACID SEPSIS PROTOCOL 1.3 MMOL/L (0.4-2.0)
[2018-03-20 09:51] LABS: MONO # 2.2 10^3/uL (0.0-0.8); POSITIVE DIFF POS FLAG
[2018-03-20 18:22] LABS: BEDSIDE GLUCOSE 294 MG/DL (83-110)
[2018-03-20 20:21] LABS: BEDSIDE GLUCOSE 366 MG/DL (83-110)
[2018-03-20] MEDS: HumaLOG INSULIN (NovoLOG) PER UNIT SC (21:14)
[2018-03-20 23:49] LABS: ANION GAP 16 MEQ/L (8-16); BLOOD UREA NITROGEN 124 MG/DL (7-18); CALCIUM LEVEL 7.6 MG/DL (8.8-10.2); CARBON DIOXIDE LEVEL 18 MEQ/L (21-32); CHLORIDE LEVEL 96 MEQ/L (98-107); CREATININE FOR GFR 5.33 MG/DL (0.70-1.30); GLOMERULAR FILTRATION RATE 11.3 (>42); GLUCOSE, FASTING 284 MG/DL (70-100); MAGNESIUM LEVEL 1.8 MG/DL (1.8-2.4); POTASSIUM SERUM 4.1 MEQ/L (3.5-5.1); SODIUM LEVEL 130 MEQ/L (136-145); TROPONIN I 0.61 NG/ML (< 0.10)
[2018-03-21] MEDS: SODIUM BICARBONATE 75 MEQ in NS 0.45% 1,000 ML IV ×4 (04:27→23:43)
[2018-03-21] MEDS: LEVOTHYROXINE 100MCG TABLET (0.1MG) PO (05:10)
[2018-03-21] MEDS: HEPARIN SOD (PORCINE) 5000 UNITS/ML VIAL SC ×3 (05:10→21:58)
[2018-03-21] MEDS: metroNIDAZOLE (FLAGYL) 500 MG TAB PO ×3 (05:10→21:57)
[2018-03-21 06:00] LABS: HEMATOCRIT 32.6 % (42.0-52.0); MEAN CORPUSCULAR HEMOGLOBIN 26.9 pg (27.0-33.0); MEAN CORPUSCULAR HGB CONC 34.4 g/dl (32.0-36.5); MEAN CORPUSCULAR VOLUME 78.4 fl (80.0-96.0); PLATELET COUNT, AUTOMATED 202 10^3/uL (150-450); RED BLOOD COUNT 4.16 10^6/uL (4.30-6.10); RED CELL DISTRIBUTION WIDTH 12.9 % (11.5-14.5); WHITE BLOOD COUNT 8.3 10^3/uL (4.0-10.0)
[2018-03-21 06:08] LABS: ANION GAP 13 MEQ/L (8-16); BLOOD UREA NITROGEN 120 MG/DL (7-18); CALCIUM LEVEL 7.3 MG/DL (8.8-10.2); CARBON DIOXIDE LEVEL 19 MEQ/L (21-32); CHLORIDE LEVEL 100 MEQ/L (98-107); CREATININE FOR GFR 4.65 MG/DL (0.70-1.30); GLOMERULAR FILTRATION RATE 13.2 (>42); GLUCOSE, FASTING 269 MG/DL (70-100); POTASSIUM SERUM 3.8 MEQ/L (3.5-5.1); SODIUM LEVEL 132 MEQ/L (136-145)
[2018-03-21 06:19] LABS: HEMOGLOBIN 11.2 g/dl (13.5-17.5)
[2018-03-21 08:43] LABS: CK-MB VALUE MASS 3.1 NG/ML (<3.6); CPK CREATINE PHOSPHOKINASE 81 U/L (39-308); MB/CK RELATIVE INDEX 3.82 (< OR =4); TROPONIN I 0.52 NG/ML (< 0.10)
[2018-03-21] MEDS: methylPREDNISolone INJ 125 MG/2 ML VIAL (J2930) IV (08:43)
[2018-03-21] MEDS: HumaLOG INSULIN (NovoLOG) PER UNIT SC ×4 (08:44→21:59)
[2018-03-21] MEDS: CIPROFLOXACIN 250 MG TAB PO ×2 (08:47→21:57)
[2018-03-21] MEDS: MULTIVITAMINS/MINERALS THERAP 1 TAB PO (08:47)
[2018-03-21] MEDS: CLOPIDOGREL 75 MG TAB PO (08:47)
[2018-03-21] MEDS: ASPIRIN 81 MG ENTERIC TAB PO (08:48)
[2018-03-21] MEDS: FERROUS SULFATE 325MG TAB PO ×2 (08:48→21:59)
[2018-03-21] MEDS: ATENOLOL 50 MG TAB PO (08:48)
[2018-03-21] MEDS: PANTOPRAZOLE 40MG TAB (PROTONIX) PO (08:48)
[2018-03-21] MEDS: LEVEMIR (INSULIN DETEMIR) 1 UNITS/0.01ML SC (08:56)
[2018-03-21] MEDS: PRAVASTATIN 20 MG TAB PO (08:56)
[2018-03-21] MEDS: VITAMIN D 1,000 INTERNATIONAL UNITS TABLET PO (08:56)
[2018-03-21 12:07] LABS: BEDSIDE GLUCOSE 173 MG/DL (83-110)
[2018-03-21 17:15] LABS: BEDSIDE GLUCOSE 315 MG/DL (83-110)
[2018-03-21 19:58] LABS: BEDSIDE GLUCOSE 331 MG/DL (83-110)
[2018-03-22 06:12] LABS: HEMATOCRIT 32.3 % (42.0-52.0); HEMOGLOBIN 11.2 g/dl (13.5-17.5); MEAN CORPUSCULAR HEMOGLOBIN 27.3 pg (27.0-33.0); MEAN CORPUSCULAR HGB CONC 34.7 g/dl (32.0-36.5); MEAN CORPUSCULAR VOLUME 78.8 fl (80.0-96.0); PLATELET COUNT, AUTOMATED 208 10^3/uL (150-450); RED CELL DISTRIBUTION WIDTH 13.1 % (11.5-14.5); WHITE BLOOD COUNT 11.6 10^3/uL (4.0-10.0)
[2018-03-22] MEDS: HEPARIN SOD (PORCINE) 5000 UNITS/ML VIAL SC ×3 (06:19→22:13)
[2018-03-22] MEDS: metroNIDAZOLE (FLAGYL) 500 MG TAB PO ×3 (06:19→22:12)
[2018-03-22] MEDS: LEVOTHYROXINE 100MCG TABLET (0.1MG) PO (06:19)
[2018-03-22 06:33] LABS: BLOOD UREA NITROGEN 108 MG/DL (7-18); CALCIUM LEVEL 7.2 MG/DL (8.8-10.2); CARBON DIOXIDE LEVEL 24 MEQ/L (21-32); CHLORIDE LEVEL 106 MEQ/L (98-107); CREATININE FOR GFR 3.22 MG/DL (0.70-1.30); GLOMERULAR FILTRATION RATE 20.2 (>42); GLUCOSE, FASTING 167 MG/DL (70-100); POTASSIUM SERUM 3.6 MEQ/L (3.5-5.1); PSA SCREENING 0.92 NG/ML (< 4.0)
[2018-03-22 06:40] LABS: ANION GAP 12 MEQ/L (8-16); SODIUM LEVEL 142 MEQ/L (136-145)
[2018-03-22] MEDS ORDERED: POTASSIUM CHLORIDE INJ 20 MEQ in NS 0.45% 1,000 ML IV (07:00)
[2018-03-22] MEDS: HumaLOG INSULIN (NovoLOG) PER UNIT SC ×4 (08:42→22:13)
[2018-03-22] MEDS ORDERED: LEVEMIR (INSULIN DETEMIR) 1 UNITS/0.01ML SC (09:45)
[2018-03-22] MEDS: VITAMIN D 1,000 INTERNATIONAL UNITS TABLET PO (09:52)
[2018-03-22] MEDS: PRAVASTATIN 20 MG TAB PO (09:53)
[2018-03-22] MEDS: MULTIVITAMINS/MINERALS THERAP 1 TAB PO (09:54)
[2018-03-22] MEDS: ATENOLOL 50 MG TAB PO (09:54)
[2018-03-22] MEDS: CLOPIDOGREL 75 MG TAB PO (09:54)
[2018-03-22] MEDS: ASPIRIN 81 MG ENTERIC TAB PO (09:55)
[2018-03-22] MEDS: FERROUS SULFATE 325MG TAB PO ×3 (09:55→22:15)
[2018-03-22] MEDS: KCL 20MEQ IN 0.45NS 1000ML 1,000 ML IV ×2 (09:56→21:20)
[2018-03-22] MEDS: methylPREDNISolone INJ 125 MG/2 ML VIAL (J2930) IV (09:58)
[2018-03-22] MEDS: LEVEMIR (INSULIN DETEMIR) 1 UNITS/0.01ML SC ×2 (09:58)
[2018-03-22] MEDS: CIPROFLOXACIN 250 MG TAB PO ×2 (09:59→22:12)
[2018-03-22] MEDS: PANTOPRAZOLE 40MG TAB (PROTONIX) PO (10:00)
[2018-03-22] MEDS: LOMOTIL 2.5MG/0.025MG TABLET PO ×3 (10:03→22:13)
[2018-03-22 11:29] LABS: BEDSIDE GLUCOSE 125 MG/DL (83-110)
[2018-03-22 16:46] LABS: BEDSIDE GLUCOSE 411 MG/DL (83-110)
[2018-03-22 21:06] LABS: BEDSIDE GLUCOSE 390 MG/DL (83-110)
[2018-03-23 05:50] LABS: HEMATOCRIT 31.4 % (42.0-52.0); HEMOGLOBIN 10.6 g/dl (13.5-17.5); MEAN CORPUSCULAR HEMOGLOBIN 27.2 pg (27.0-33.0); MEAN CORPUSCULAR HGB CONC 33.8 g/dl (32.0-36.5); MEAN CORPUSCULAR VOLUME 80.5 fl (80.0-96.0); PLATELET COUNT, AUTOMATED 214 10^3/uL (150-450); RED CELL DISTRIBUTION WIDTH 13.5 % (11.5-14.5); WHITE BLOOD COUNT 12.5 10^3/uL (4.0-10.0)
[2018-03-23] MEDS: LEVOTHYROXINE 100MCG TABLET (0.1MG) PO (05:55)
[2018-03-23] MEDS: HEPARIN SOD (PORCINE) 5000 UNITS/ML VIAL SC ×3 (05:55→21:28)
[2018-03-23] MEDS: metroNIDAZOLE (FLAGYL) 500 MG TAB PO ×3 (05:55→21:27)
[2018-03-23 06:09] LABS: ANION GAP 8 MEQ/L (8-16); BLOOD UREA NITROGEN 91 MG/DL (7-18); CALCIUM LEVEL 7.9 MG/DL (8.8-10.2); CARBON DIOXIDE LEVEL 26 MEQ/L (21-32); CHLORIDE LEVEL 107 MEQ/L (98-107); CREATININE FOR GFR 2.61 MG/DL (0.70-1.30); GLOMERULAR FILTRATION RATE 25.8 (>42); GLUCOSE, FASTING 176 MG/DL (70-100); POTASSIUM SERUM 5.1 MEQ/L (3.5-5.1); SODIUM LEVEL 141 MEQ/L (136-145)
[2018-03-23] MEDS: FERROUS SULFATE 325MG TAB PO ×2 (08:04→21:27)
[2018-03-23] MEDS: HumaLOG INSULIN (NovoLOG) PER UNIT SC ×4 (08:04→21:27)
[2018-03-23] MEDS: LEVEMIR (INSULIN DETEMIR) 1 UNITS/0.01ML SC (08:04)
[2018-03-23] MEDS: LOMOTIL 2.5MG/0.025MG TABLET PO ×3 (08:04→21:27)
[2018-03-23] MEDS: ASPIRIN 81 MG ENTERIC TAB PO (08:05)
[2018-03-23] MEDS: PRAVASTATIN 20 MG TAB PO (08:05)
[2018-03-23] MEDS: ATENOLOL 50 MG TAB PO (08:05)
[2018-03-23] MEDS: VITAMIN D 1,000 INTERNATIONAL UNITS TABLET PO (08:05)
[2018-03-23] MEDS: PANTOPRAZOLE 40MG TAB (PROTONIX) PO (08:05)
[2018-03-23] MEDS: CIPROFLOXACIN 250 MG TAB PO ×2 (08:05→21:27)
[2018-03-23] MEDS: predniSONE 20 MG TAB PO (08:05)
[2018-03-23] MEDS: CLOPIDOGREL 75 MG TAB PO (08:05)
[2018-03-23] MEDS: MULTIVITAMINS/MINERALS THERAP 1 TAB PO (08:05)
[2018-03-23] MEDS: KCL 20MEQ IN 0.45NS 1000ML 1,000 ML IV (10:40)
[2018-03-23 11:57] LABS: BEDSIDE GLUCOSE 140 MG/DL (83-110)
[2018-03-23 17:09] LABS: BEDSIDE GLUCOSE 328 MG/DL (83-110)
[2018-03-24] MEDS: LEVOTHYROXINE 100MCG TABLET (0.1MG) PO (05:37)
[2018-03-24] MEDS: metroNIDAZOLE (FLAGYL) 500 MG TAB PO (05:37)
[2018-03-24] MEDS: HEPARIN SOD (PORCINE) 5000 UNITS/ML VIAL SC (05:37)
[2018-03-24 06:15] LABS: HEMATOCRIT 34.3 % (42.0-52.0); HEMOGLOBIN 11.1 g/dl (13.5-17.5); MEAN CORPUSCULAR HEMOGLOBIN 26.9 pg (27.0-33.0); MEAN CORPUSCULAR HGB CONC 32.4 g/dl (32.0-36.5); MEAN CORPUSCULAR VOLUME 83.3 fl (80.0-96.0); PLATELET COUNT, AUTOMATED 203 10^3/uL (150-450); RED BLOOD COUNT 4.12 10^6/uL (4.30-6.10); RED CELL DISTRIBUTION WIDTH 13.9 % (11.5-14.5)
[2018-03-24 06:34] LABS: ANION GAP 9 MEQ/L (8-16); BLOOD UREA NITROGEN 82 MG/DL (7-18); CALCIUM LEVEL 8.2 MG/DL (8.8-10.2); CARBON DIOXIDE LEVEL 24 MEQ/L (21-32); CHLORIDE LEVEL 110 MEQ/L (98-107); CREATININE FOR GFR 2.16 MG/DL (0.70-1.30); GLOMERULAR FILTRATION RATE 32.1 (>42); GLUCOSE, FASTING 131 MG/DL (70-100); POTASSIUM SERUM 4.5 MEQ/L (3.5-5.1); SODIUM LEVEL 143 MEQ/L (136-145)
[2018-03-24] MEDS: predniSONE 20 MG TAB PO (08:33)
[2018-03-24] MEDS: HumaLOG INSULIN (NovoLOG) PER UNIT SC ×2 (08:33→12:00)
[2018-03-24] MEDS: LEVEMIR (INSULIN DETEMIR) 1 UNITS/0.01ML SC (08:33)
[2018-03-24] MEDS: PRAVASTATIN 20 MG TAB PO (08:33)
[2018-03-24] MEDS: MULTIVITAMINS/MINERALS THERAP 1 TAB PO (08:33)
[2018-03-24] MEDS: FERROUS SULFATE 325MG TAB PO (08:33)
[2018-03-24] MEDS: VITAMIN D 1,000 INTERNATIONAL UNITS TABLET PO (08:34)
[2018-03-24] MEDS: CLOPIDOGREL 75 MG TAB PO (08:34)
[2018-03-24] MEDS: ATENOLOL 50 MG TAB PO (08:34)
[2018-03-24] MEDS: CIPROFLOXACIN 250 MG TAB PO (08:34)
[2018-03-24] MEDS: PANTOPRAZOLE 40MG TAB (PROTONIX) PO (08:34)
[2018-03-24] MEDS: ASPIRIN 81 MG ENTERIC TAB PO (08:34)
[2018-03-24 09:46] LABS: TROPONIN I 0.23 NG/ML (< 0.10)
[2018-03-24 12:20] LABS: BEDSIDE GLUCOSE 372 MG/DL (83-110)
== END 2018-03-24 12:33 | disposition home or self-care (01) | DRG 683 ==
LOC: M ED INP 03-20 01:09 → M ED 21:40 → M MSPAV 03-20 14:13
DX: N17.9 Acute kidney failure, unspecified (principal); A09 Infectious gastroenteritis and colitis, unspecified; E87.2 Acidosis; E87.1 Hypo-osmolality and hyponatremia; K91.2 Postsurgical malabsorption, not elsewhere classified; E87.5 Hyperkalemia; I12.9 Hypertensive chronic kidney disease with stage 1 through stage 4 chronic kidney disease, or unspecified chronic kidney disease; N40.0 Benign prostatic hyperplasia without lower urinary tract symptoms; F32.9 Major depressive disorder, single episode, unspecified; M81.0 Age-related osteoporosis without current pathological fracture; D50.9 Iron deficiency anemia, unspecified; E11.51 Type 2 diabetes mellitus with diabetic peripheral angiopathy without gangrene; E03.9 Hypothyroidism, unspecified; K21.9 Gastro-esophageal reflux disease without esophagitis; E78.5 Hyperlipidemia, unspecified; I25.10 Atherosclerotic heart disease of native coronary artery without angina pectoris; N18.3 Chronic kidney disease, stage 3 (moderate); Z95.1 Presence of aortocoronary bypass graft; Z77.098 Contact with and (suspected) exposure to other hazardous, chiefly nonmedicinal, chemicals; Z79.82 Long term (current) use of aspirin; Z79.02 Long term (current) use of antithrombotics/antiplatelets; Z79.4 Long term (current) use of insulin; Z79.899 Other long term (current) drug therapy; Z88.8 Allergy status to other drugs, medicaments and biological substances; Z87.891 Personal history of nicotine dependence; Z90.49 Acquired absence of other specified parts of digestive tract; Z89.511 Acquired absence of right leg below knee; Z89.612 Acquired absence of left leg above knee; Z98.41 Cataract extraction status, right eye; Z98.42 Cataract extraction status, left eye

== ENCOUNTER → 2018-03-19 | Outpatient (CLI) | payer MEDICARE ==
[2018-03-19 17:56] LABS: BASO % 0.3 % (0.0-1.0); EOS # 0.1 10^3/uL (0.0-0.50); EOS % 0.6 % (0.0-3.0); HEMATOCRIT 47.3 % (42.0-52.0); HEMOGLOBIN 15.4 g/dl (13.5-17.5); IMMATURE GRANULOCYTE % 0.3 % (0-3.0); LYMPH # 0.9 10^3/uL (1.5-4.5); LYMPH % 7.5 % (24.0-44.0); MEAN CORPUSCULAR HEMOGLOBIN 27.3 pg (27.0-33.0); MEAN CORPUSCULAR HGB CONC 32.6 g/dl (32.0-36.5); MEAN CORPUSCULAR VOLUME 83.7 fl (80.0-96.0); MONO % 17.2 % (0.0-5.0); NEUTROPHILS # 8.7 10^3/uL (1.8-7.7); NEUTROPHILS % 74.1 % (36.0-66.0); PLATELET COUNT, AUTOMATED 290 10^3/uL (150-450); RED BLOOD COUNT 5.65 10^6/uL (4.30-6.10); RED CELL DISTRIBUTION WIDTH 13.4 % (11.5-14.5); WHITE BLOOD COUNT 11.8 10^3/uL (4.0-10.0)
[2018-03-19 18:16] LABS: ALBUMIN 3.9 GM/DL (3.2-5.2); ALBUMIN/GLOBULIN RATIO 0.75 (1.00-1.93); ALKALINE PHOSPHATASE 107 U/L (45-117); ALT/SGPT 17 U/L (12-78); AMYLASE 60 U/L (25-115); ANION GAP 17 MEQ/L (8-16); AST/SGOT 9 U/L (7-37); BILIRUBIN,TOTAL 0.4 MG/DL (0.2-1.0); BLOOD UREA NITROGEN 113 MG/DL (7-18); CARBON DIOXIDE LEVEL 12 MEQ/L (21-32); CHLORIDE LEVEL 98 MEQ/L (98-107); CREATININE FOR GFR 7.78 MG/DL (0.70-1.30); GLOMERULAR FILTRATION RATE 7.3 (>42); GLUCOSE, FASTING 248 MG/DL (70-100); LIPASE 210 U/L (73-393); SODIUM LEVEL 127 MEQ/L (136-145); TOTAL PROTEIN 9.1 GM/DL (6.4-8.2)
[2018-03-19 19:05] LABS: POTASSIUM SERUM 6.9 MEQ/L (3.5-5.1)
[2018-03-19 19:29] LABS: POSITIVE DIFF POS FLAG
== END ==
LOC: M SMT 13:47
DX: A09 Infectious gastroenteritis and colitis, unspecified (principal)

== ENCOUNTER → 2018-03-31 | Outpatient (CLI) | payer MEDICARE ==
[2018-03-31 13:22] LABS: BASO % 0.2 % (0.0-1.0); EOS # 0.3 10^3/uL (0.0-0.50); HEMATOCRIT 35.4 % (42.0-52.0); HEMOGLOBIN 11.2 g/dl (13.5-17.5); IMMATURE GRANULOCYTE % 0.3 % (0-3.0); LYMPH # 2.3 10^3/uL (1.5-4.5); LYMPH % 13.3 % (24.0-44.0); MEAN CORPUSCULAR HEMOGLOBIN 26.9 pg (27.0-33.0); MEAN CORPUSCULAR HGB CONC 31.6 g/dl (32.0-36.5); MEAN CORPUSCULAR VOLUME 85.1 fl (80.0-96.0); MONO # 1.3 10^3/uL (0.0-0.8); MONO % 7.5 % (0.0-5.0); NEUTROPHILS # 13.1 10^3/uL (1.8-7.7); NEUTROPHILS % 76.7 % (36.0-66.0); PLATELET COUNT, AUTOMATED 220 10^3/uL (150-450); RED BLOOD COUNT 4.16 10^6/uL (4.30-6.10); WHITE BLOOD COUNT 17.2 10^3/uL (4.0-10.0)
[2018-03-31 13:34] LABS: ANION GAP 8 MEQ/L (8-16); BLOOD UREA NITROGEN 49 MG/DL (7-18); CALCIUM LEVEL 8.5 MG/DL (8.8-10.2); CARBON DIOXIDE LEVEL 23 MEQ/L (21-32); CHLORIDE LEVEL 112 MEQ/L (98-107); GLOMERULAR FILTRATION RATE 48.8 (>42); GLUCOSE, FASTING 109 MG/DL (70-100); POTASSIUM SERUM 5.1 MEQ/L (3.5-5.1); SODIUM LEVEL 143 MEQ/L (136-145)
[2018-03-31 13:46] LABS: ESTIMATED AVERAGE GLUCOSE 186 MG/DL (60-110); HEMOGLOBIN A1c 8.1 %
[2018-04-02 09:39] LABS: PSA TOTAL 1.2 ng/mL (0.0-4.0)
== END ==
LOC: M SMT 10:34
DX: R35.0 Frequency of micturition (principal); N18.3 Chronic kidney disease, stage 3 (moderate)
CPT/HCPCS: 83036

== ENCOUNTER → 2018-12-20 | Outpatient (CLI) | payer MEDICARE ==
[~2018-12-20] MED LIST changes: -/PRAV20TA PO; -AMLO5TAB2 PO; +AMLO5TAB6 PO; +FURO20TA2 PO; +GLUC1VIA2 SC; -GLUC1VL SC; -GLUC4GMTAB PO; -LASI40TA PO; +LASI40TA9 PO; +LEAD1CHW PO; -PANT40TA2 PO; +PANT40TA3 PO; +PRAV1TAB39 PO; +PRED10TA2 PO
[2018-12-20 19:04] LABS: ALBUMIN 3.5 GM/DL (3.2-5.2); BILIRUBIN,TOTAL 0.3 MG/DL (0.2-1.0); CALCIUM LEVEL 8.9 MG/DL (8.8-10.2); CREATININE FOR GFR 1.46 MG/DL (0.70-1.30); GLOMERULAR FILTRATION RATE 50.2 (>42); POTASSIUM SERUM 4.8 MEQ/L (3.5-5.1); TOTAL PROTEIN 6.8 GM/DL (6.4-8.2)
[2018-12-20 19:31] LABS: HEMOGLOBIN A1c 6.5 %
== END ==
LOC: M SMT 15:04
PROVIDERS: ATTEND Family Medicine
DX: E11.59 Type 2 diabetes mellitus with other circulatory complications (principal)

== ENCOUNTER → 2021-03-21 | Outpatient (CLI) | payer MEDICARE ==
[~2021-03-21] MED LIST changes: +AMLO1TAB24 PO; -AMLO5TAB6 PO; -CALC12502 PO; +CALC500T60 PO; -MAG400TA PO; +MAGN400T35 PO; +OXYC-1 PO; -OXYC15TA76 PO; +PANT40TA29 PO; -PANT40TA3 PO; +VITA-243 PO; -VITA500T PO
[2021-03-21 11:05] LABS: BASO # 0.1 10^3/uL (0.0-0.2); BASO % 1.6 % (0.0-1.0); EOS # 0.4 10^3/uL (0.0-0.5); EOS % 4.2 % (0.0-3.0); HEMATOCRIT 38.8 % (42.0-52.0); HEMOGLOBIN 12.7 g/dl (13.5-17.5); LYMPH # 3.1 10^3/uL (1.5-5.0); LYMPH % 35.9 % (24.0-44.0); MEAN CORPUSCULAR HEMOGLOBIN 28.9 pg (27.0-33.0); MEAN CORPUSCULAR HGB CONC 32.7 g/dl (32.0-36.5); MEAN CORPUSCULAR VOLUME 88.4 fl (80.0-96.0); MONO # 1.1 10^3/uL (0.0-0.8); MONO % 12.8 % (2.0-8.0); NEUTROPHILS # 3.9 10^3/uL (1.5-8.5); NEUTROPHILS % 45.3 % (36.0-66.0); PLATELET COUNT, AUTOMATED 159 10^3/uL (150-450); RED BLOOD COUNT 4.39 10^6/uL (4.30-6.10); WHITE BLOOD COUNT 8.6 10^3/uL (4.0-10.0)
[2021-03-21 11:24] LABS: ALBUMIN 3.3 GM/DL (3.2-5.2); BILIRUBIN,TOTAL 0.3 MG/DL (0.2-1.0); CALCIUM LEVEL 9.2 MG/DL (8.8-10.2); CHOLESTEROL RISK RATIO 4.933 (<5); CREATININE FOR GFR 1.65 MG/DL (0.70-1.30); FREE T4 1.24 NG/DL (0.76-1.46); GLOMERULAR FILTRATION RATE 43.4 (>42); POTASSIUM SERUM 4.4 MEQ/L (3.5-5.1); THYROID STIMULATING HORMONE 3.15 uIU/ML (0.358-3.740); TOTAL PROTEIN 6.9 GM/DL (6.4-8.2)
[2021-03-21 11:53] LABS: HEMOGLOBIN A1c 6.2 %
== END ==
LOC: M PLALAB 09:11
PROVIDERS: ATTEND Family Medicine
DX: E11.59 Type 2 diabetes mellitus with other circulatory complications (principal); N18.30 Chronic kidney disease, stage 3 unspecified; I50.32 Chronic diastolic (congestive) heart failure

== ENCOUNTER → 2021-07-19 | Outpatient (REF) | payer MEDICARE ==
[2021-07-19 17:57] LABS: PERCENT SATURATION 25.7 % (19.7-50.0)
== END ==
LOC: M LAB REF 16:59
PROVIDERS: ATTEND Nurse Practitioner Family
DX: D50.9 Iron deficiency anemia, unspecified (principal); N18.31 Chronic kidney disease, stage 3a

== ENCOUNTER → 2021-11-12 | Outpatient (CLI) | payer MEDICARE ==
[2021-11-12 13:58] LABS: BASO # 0.1 10^3/uL (0.0-0.2); BASO % 1.5 % (0.0-1.0); EOS # 0.5 10^3/uL (0.0-0.5); EOS % 6.1 % (0.0-3.0); HEMATOCRIT 37.3 % (42.0-52.0); HEMOGLOBIN 12.1 g/dl (13.5-17.5); LYMPH # 1.7 10^3/uL (1.5-5.0); LYMPH % 22.6 % (24.0-44.0); MEAN CORPUSCULAR HEMOGLOBIN 27.9 pg (27.0-33.0); MEAN CORPUSCULAR HGB CONC 32.4 g/dl (32.0-36.5); MEAN CORPUSCULAR VOLUME 85.9 fl (80.0-96.0); MONO # 0.9 10^3/uL (0.0-0.8); MONO % 11.3 % (2.0-8.0); NEUTROPHILS # 4.4 10^3/uL (1.5-8.5); NEUTROPHILS % 58.4 % (36.0-66.0); PLATELET COUNT, AUTOMATED 166 10^3/uL (150-450); RED BLOOD COUNT 4.34 10^6/uL (4.30-6.10); WHITE BLOOD COUNT 7.5 10^3/uL (4.0-10.0)
[2021-11-12 14:33] LABS: BILIRUBIN,TOTAL 0.4 MG/DL (0.2-1.0); CALCIUM LEVEL 8.8 MG/DL (8.8-10.2); CHOLESTEROL RISK RATIO 3.742 (<5); CREATININE FOR GFR 1.61 MG/DL (0.70-1.30); GLOMERULAR FILTRATION RATE 44.5 (>42); PERCENT SATURATION 26.7 % (19.7-50.0); POTASSIUM SERUM 4.5 MEQ/L (3.5-5.1); TOTAL PROTEIN 6.5 GM/DL (6.4-8.2)
[2021-11-12 14:49] LABS: HEMOGLOBIN A1c 6.6 %
== END ==
LOC: M PLALAB 09:35
PROVIDERS: ATTEND Family Medicine
DX: E11.59 Type 2 diabetes mellitus with other circulatory complications (principal)

== ENCOUNTER → 2022-01-31 | Outpatient (REF) | payer MEDICARE | LOC: M LAB REF 16:44 | PROVIDERS: ATTEND Nurse Practitioner Family | DX: I50.22 Chronic systolic (congestive) heart failure (principal) ==

== ENCOUNTER → 2022-02-14 | Outpatient (REF) | payer MEDICARE | LOC: M LAB REF 16:37 | PROVIDERS: ATTEND Nurse Practitioner Family | DX: I50.22 Chronic systolic (congestive) heart failure (principal) ==

== ENCOUNTER → 2022-02-27 | Outpatient (CLI) | payer MEDICARE | LOC: M WUC 14:23 | PROVIDERS: ATTEND Nurse Practitioner Family | DX: I50.22 Chronic systolic (congestive) heart failure (principal); R06.01 Orthopnea; Z95.1 Presence of aortocoronary bypass graft; Z95.0 Presence of cardiac pacemaker ==

== ENCOUNTER → 2022-03-13 | Outpatient (REF) | payer MEDICARE | LOC: M LAB REF 16:48 | PROVIDERS: ATTEND Nurse Practitioner Family | DX: I50.22 Chronic systolic (congestive) heart failure (principal) ==

== ENCOUNTER → 2022-04-01 | Outpatient (CLI) | payer MEDICARE ==
[2022-04-01 13:23] LABS: BASO # 0.1 10^3/uL (0.0-0.2); BASO % 1.3 % (0.0-1.0); EOS # 0.3 10^3/uL (0.0-0.5); EOS % 4.2 % (0.0-3.0); HEMOGLOBIN 10.6 g/dl (13.5-17.5); LYMPH # 1.5 10^3/uL (1.5-5.0); LYMPH % 19.1 % (24.0-44.0); MEAN CORPUSCULAR HEMOGLOBIN 28.3 pg (27.0-33.0); MEAN CORPUSCULAR HGB CONC 33.1 g/dl (32.0-36.5); MEAN CORPUSCULAR VOLUME 85.6 fl (80.0-96.0); MONO % 12.5 % (2.0-8.0); NEUTROPHILS # 4.8 10^3/uL (1.5-8.5); NEUTROPHILS % 62.6 % (36.0-66.0); PLATELET COUNT, AUTOMATED 148 10^3/uL (150-450); RED BLOOD COUNT 3.74 10^6/uL (4.30-6.10); WHITE BLOOD COUNT 7.7 10^3/uL (4.0-10.0)
[2022-04-01 13:44] LABS: BILIRUBIN,TOTAL 0.6 MG/DL (0.2-1.0); CALCIUM LEVEL 9.2 MG/DL (8.8-10.2); CREATININE FOR GFR 2.09 MG/DL (0.70-1.30); FREE T4 1.23 NG/DL (0.76-1.46); GLOMERULAR FILTRATION RATE 32.9 (>42); POTASSIUM SERUM 3.8 MEQ/L (3.5-5.1); THYROID STIMULATING HORMONE 1.1 uIU/ML (0.358-3.740); TOTAL PROTEIN 6.4 GM/DL (6.4-8.2)
[2022-04-01 14:05] LABS: CREATININE, URINE 83.8 MG/DL; HEMOGLOBIN A1c 6.7 %; MAU/CREAT RATIO 3174.2 MCG/MG (0.0-30.0)
== END ==
LOC: M WUC 08:54
PROVIDERS: ATTEND Nurse Practitioner Adult Health
DX: E11.59 Type 2 diabetes mellitus with other circulatory complications (principal); E03.9 Hypothyroidism, unspecified

== ENCOUNTER → 2022-04-08 | Outpatient (REF) | payer MEDICARE ==
[2022-04-08 17:37] LABS: PERCENT SATURATION 10.3 % (19.7-50.0)
== END ==
LOC: M LAB REF 16:48
PROVIDERS: ATTEND Nurse Practitioner Family
DX: D50.9 Iron deficiency anemia, unspecified (principal)

== ENCOUNTER 2022-04-15 08:39 | Outpatient (CLI) | payer MEDICARE ==
[~2022-04-15 08:39] MED LIST changes: +ALBUTEROL SULFATE 2.5 MG/0.5 ML INH NEB SOLN INH PRN; +EPINEPHrine INJ 1 MG/ML 1ML AMP IM PRN; +diphenhydrAMINE 50MG/ML VIAL (J1200) IV PRN; +methylPREDNISolone 125MG 2ML VIAL IV PRN
[2022-04-15] MEDS ORDERED: FERRIC CARBOXYMALTOSE INJ 750 MG in NS 250 ML (>50kg) IV ONE ×3 (09:00)
[2022-04-15] MEDS ORDERED: NS 1,000 ML IV SCH (09:00)
[2022-04-15 09:28] VITALS: BP 131/82
[2022-04-15 10:51] VITALS: BP 142/64
== END 2022-04-15 10:50 | disposition home or self-care (01) ==
LOC: M INFU 08:39
PROVIDERS: ATTEND Internal Medicine Nephrology
DX: D50.9 Iron deficiency anemia, unspecified (principal); Z88.8 Allergy status to other drugs, medicaments and biological substances
CPT/HCPCS: 96365; J1439

== ENCOUNTER 2022-04-22 08:40 | Outpatient (CLI) | payer MEDICARE ==
[~2022-04-22 08:40] MED LIST changes: +FERRIC CARBOXYMALTOSE INJ 750 MG in NS 250 ML (>50kg) IV ONE; +NS 1,000 ML IV SCH
[2022-04-22 09:11] VITALS: BP 138/63
[2022-04-22 10:10] VITALS: BP 137/70
== END 2022-04-22 10:15 | disposition home or self-care (01) ==
LOC: M INFU 08:40
PROVIDERS: ATTEND Internal Medicine Nephrology
DX: D50.9 Iron deficiency anemia, unspecified (principal); Z88.8 Allergy status to other drugs, medicaments and biological substances
CPT/HCPCS: 96365; J1439

== ENCOUNTER → 2022-06-11 | Outpatient (REF) | payer MEDICARE ==
[~2022-06-11] MED LIST changes: -ALBUTEROL SULFATE 2.5 MG/0.5 ML INH NEB SOLN INH PRN; -EPINEPHrine INJ 1 MG/ML 1ML AMP IM PRN; -FERRIC CARBOXYMALTOSE INJ 750 MG in NS 250 ML (>50kg) IV ONE; -NS 1,000 ML IV SCH; -diphenhydrAMINE 50MG/ML VIAL (J1200) IV PRN; -methylPREDNISolone 125MG 2ML VIAL IV PRN
[2022-06-11 18:17] LABS: PERCENT SATURATION 23.8 % (19.7-50.0)
== END ==
LOC: M LAB REF 16:53
PROVIDERS: ATTEND Nurse Practitioner Family
DX: D50.9 Iron deficiency anemia, unspecified (principal)

== ENCOUNTER → 2022-08-27 | Outpatient (CLI) | payer MEDICARE ==
[~2022-08-27] MED LIST changes: +CLOP75TA99 PO; -PLAV1TAB2 PO
== END ==
LOC: M RAD 12:01
PROVIDERS: ATTEND Nurse Practitioner Family
DX: N18.32 Chronic kidney disease, stage 3b (principal); R35.0 Frequency of micturition; N28.1 Cyst of kidney, acquired; R18.8 Other ascites

== ENCOUNTER → 2022-09-24 | Outpatient (REF) | payer MEDICARE | LOC: M LAB REF 17:03 | PROVIDERS: ATTEND Nurse Practitioner Family | DX: I50.22 Chronic systolic (congestive) heart failure (principal) ==

== ENCOUNTER → 2022-11-05 | Outpatient (REF) | payer MEDICARE ==
[~2022-11-05] MED LIST changes: -OXYC-404 PO; +OXYC20TA64 PO
[2022-11-06 18:53] LABS: PERCENT SATURATION 17.3 % (19.7-50.0)
== END ==
LOC: M LAB REF 17:13
PROVIDERS: ATTEND Nurse Practitioner Family
DX: D50.9 Iron deficiency anemia, unspecified (principal)

== ENCOUNTER → 2023-01-08 | Outpatient (REF) | payer MEDICARE ==
[2023-01-08 18:33] LABS: PERCENT SATURATION 5.1 % (19.7-50.0)
[2023-01-08 18:35] LABS: FERRITIN 28.3 NG/ML (10.5-307.3)
== END ==
LOC: M LAB REF 16:51
PROVIDERS: ATTEND Nurse Practitioner Family
DX: D50.9 Iron deficiency anemia, unspecified (principal)

== ENCOUNTER 2023-01-22 12:30 | Outpatient (CLI) | payer MEDICARE ==
[~2023-01-22] VITALS: Ht 172.7 cm; Wt 66.8 kg
[~2023-01-22 12:30] MED LIST changes: +ALBUTEROL SULFATE 2.5MG/0.5ML INH NEB SOLN INH PRN; +EPINEPHrine INJ 1 MG/ML 1ML AMP IM PRN; +diphenhydrAMINE 50MG/ML VIAL IV PRN; +methylPREDNISolone 125MG 2ML VIAL IV PRN
[2023-01-22 12:45] VITALS: BP 141/65
[2023-01-22] MEDS ORDERED: NS 1,000 ML IV SCH (13:00)
[2023-01-22] MEDS ORDERED: FERRIC CARBOXYMALTOSE INJ 750 MG in NS 250 ML (>50kg) IV ONE ×3 (13:00)
[2023-01-22 13:59] VITALS: BP 141/65
== END 2023-01-22 14:00 | disposition home or self-care (01) ==
LOC: M INFU 12:30
PROVIDERS: ATTEND Internal Medicine Nephrology
DX: D50.9 Iron deficiency anemia, unspecified (principal); Z88.8 Allergy status to other drugs, medicaments and biological substances
CPT/HCPCS: 96365; J1439

== ENCOUNTER 2023-01-29 12:35 | Outpatient (CLI) | payer MEDICARE ==
[~2023-01-29] VITALS: Ht 172.7 cm; Wt 66.8 kg
[2023-01-29 12:30] VITALS: BP 130/60
[2023-01-29] MEDS ORDERED: FERRIC CARBOXYMALTOSE INJ 750 MG in NS 250 ML (>50kg) IV ONE ×3 (13:00)
[2023-01-29] MEDS ORDERED: NS 1,000 ML IV SCH (13:00)
[2023-01-29 13:50] VITALS: BP 142/63
== END 2023-01-29 13:45 ==
LOC: M INFU 12:35
PROVIDERS: ATTEND Internal Medicine Nephrology
DX: D50.9 Iron deficiency anemia, unspecified (principal); Z88.8 Allergy status to other drugs, medicaments and biological substances
CPT/HCPCS: 96365; J1439

== ENCOUNTER 2023-02-09 13:50 | Emergency (ER) | payer MEDICARE ==
[~2023-02-09] VITALS: Ht 175.3 cm; Wt 63.6 kg
[~2023-02-09 13:50] MED LIST changes: -ALBUTEROL SULFATE 2.5MG/0.5ML INH NEB SOLN INH PRN; -EPINEPHrine INJ 1 MG/ML 1ML AMP IM PRN; -diphenhydrAMINE 50MG/ML VIAL IV PRN; -methylPREDNISolone 125MG 2ML VIAL IV PRN
[2023-02-09 16:22] VITALS: BP 128/82; TEMP 98.2; O2SAT 95
== END 2023-02-09 16:26 | disposition home or self-care (01) ==
LOC: M ED 13:50
DX: S09.90XA Unspecified injury of head, initial encounter (principal); W19.XXXA Unspecified fall, initial encounter; Y92.009 Unspecified place in unspecified non-institutional (private) residence as the place of occurrence of the external cause; Y93.89 Activity, other specified; Y99.8 Other external cause status; I11.9 Hypertensive heart disease without heart failure; E03.9 Hypothyroidism, unspecified; E78.5 Hyperlipidemia, unspecified; Z87.891 Personal history of nicotine dependence; Z95.5 Presence of coronary angioplasty implant and graft; Z88.8 Allergy status to other drugs, medicaments and biological substances; Z79.01 Long term (current) use of anticoagulants; Z86.718 Personal history of other venous thrombosis and embolism; Z79.82 Long term (current) use of aspirin; Z79.4 Long term (current) use of insulin; Z79.899 Other long term (current) drug therapy

== ENCOUNTER 2023-02-20 07:50 | Inpatient (IN) | payer MEDICARE, OTHER ==
[2023-02-20] VITALS (42 sets, daily range): BP systolic 71–143; BP diastolic 42–76; TEMP 96.9–97.8; O2SAT 91–100
[~2023-02-20] VITALS: Ht 162.6 cm; Wt 58.5 kg
[2023-02-20] MEDS ORDERED: ALBUTEROL SULFATE 2.5MG/0.5ML INH NEB SOLN INH ONE (08:00)
[2023-02-20] MEDS ORDERED: IPRATROPIUM 0.5MG/ALBUTEROL 2.5MG INH SOL UD 3ML (DUONEB) NEB ONE (08:00)
[2023-02-20] MEDS ORDERED: NS 500 ML IV ONE (08:00)
[2023-02-20] MEDS ORDERED: CIPR-249 PO (08:44)
[2023-02-20] MEDS ORDERED: CARV25TA PO (08:44)
[2023-02-20] MEDS ORDERED: FAMO1TAB11 PO (08:44)
[2023-02-20] MEDS ORDERED: ALLO100T PO (08:44)
[2023-02-20] MEDS ORDERED: BUME2TAB3 PO (08:44)
[2023-02-20] MEDS ORDERED: CO Q200C10 PO (08:44)
[2023-02-20] MEDS ORDERED: FLON1SPR NARES (08:44)
[2023-02-20 08:45] LABS: ABG BASE EXCESS -5.1 (-2.0-2.0); ABG HCO3 18.7 MMOL/L (22.0-26.0); ABG O2 SATURATION 98.6 % (95.0-99.0); ABG PARTIAL PRESSURE CO2 30.1 mmHg (35.0-45.0); ABG PARTIAL PRESSURE O2 114.8 mmHg (75.0-100.0); ABG STANDARD HCO3 20.3 MMOL/L. (22.0-26.0); ABG TOTAL CO2 19.6 MMOL/L (23.0-31.0); ABG pH (ARTERIAL) 7.411 UNITS (7.350-7.450)
[2023-02-20 08:47] LABS: BASO % 0.5 % (0.0-1.0); EOS # 0.1 10^3/uL (0.0-0.5); EOS % 1.1 % (0.0-3.0); HEMATOCRIT 27.7 % (42.0-52.0); HEMOGLOBIN 8.7 g/dl (13.5-17.5); LYMPH # 0.2 10^3/uL (1.5-5.0); LYMPH % 3.6 % (24.0-44.0); MEAN CORPUSCULAR HEMOGLOBIN 28.6 pg (27.0-33.0); MEAN CORPUSCULAR HGB CONC 31.4 g/dl (32.0-36.5); MEAN CORPUSCULAR VOLUME 91.1 fl (80.0-96.0); MONO # 0.5 10^3/uL (0.0-0.8); MONO % 7.8 % (2.0-8.0); NEUTROPHILS # 5.8 10^3/uL (1.5-8.5); NEUTROPHILS % 86.7 % (36.0-66.0); PLATELET COUNT, AUTOMATED 191 10^3/uL (150-450); RED BLOOD COUNT 3.04 10^6/uL (4.30-6.10); WHITE BLOOD COUNT 6.7 10^3/uL (4.0-10.0)
[2023-02-20] MEDS ORDERED: FISH10002 PO (08:54)
[2023-02-20] MEDS ORDERED: ISOS20TA4 PO (08:54)
[2023-02-20] MEDS ORDERED: D 1010002 PO (08:54)
[2023-02-20] MEDS ORDERED: MAGN400C2 PO (08:54)
[2023-02-20] MEDS ORDERED: GLUC500C37 PO (08:54)
[2023-02-20] MEDS ORDERED: OCUVTAB4 PO (08:54)
[2023-02-20] MEDS ORDERED: POTA-151 PO (08:54)
[2023-02-20] MEDS ORDERED: HYDR-3911 PO (08:54)
[2023-02-20] MEDS ORDERED: PRAV40TA2 PO (08:56)
[2023-02-20 08:59] LABS: INR 1.26; PROTHROMBIN TIME 16.1 SECONDS (12.5-14.5)
[2023-02-20] MEDS ORDERED: allopurinoL 100 MG TAB PO SCH (09:00)
[2023-02-20] MEDS ORDERED: cefTRIAXone SOD 2 GM in D5W MINI-BAG PLUS 50 ML IV ONE (09:00)
[2023-02-20] MEDS ORDERED: FAMOTIDINE 20 MG TAB PO SCH (09:00)
[2023-02-20] MEDS ORDERED: AZITHROMYCIN INJ 500 MG, VIAL MATE ADAPTER 1 EACH in D5W 250 ML IV ONE (09:00)
[2023-02-20] MEDS ORDERED: MAGNESIUM OXIDE 400MG TAB (MAG-OX) PO SCH (09:00)
[2023-02-20] MEDS ORDERED: HOME MED LIST COMPLETE! XX SCH (09:00)
[2023-02-20] MEDS ORDERED: CARVedilol 12.5 MG TAB PO SCH (09:00)
[2023-02-20 09:21] LABS: ALBUMIN 2.9 G/DL (3.2-5.2); BILIRUBIN,DIRECT 0.6 MG/DL (<0.4); CALCIUM LEVEL 8.6 MG/DL (8.3-10.6); CK-MB VALUE MASS 9.6 NG/ML (<3.6); CREATININE FOR GFR 2.42 MG/DL (0.70-1.30); GLOMERULAR FILTRATION RATE 27.7 (>42); MAGNESIUM LEVEL 2.4 MG/DL (1.8-2.4); MB/CK RELATIVE INDEX 10.66 (< OR =4); POTASSIUM SERUM 4.6 MMOL/L (3.5-5.1); TOTAL PROTEIN 5.7 G/DL (5.7-8.2)
[2023-02-20 09:24] LABS: THYROID STIMULATING HORMONE 0.647 uIU/ML (0.55-4.78); THYROXINE (T4) 8.5 UG/DL (4.5-10.9)
[2023-02-20 09:57] LABS: CK-MB VALUE MASS 10.6 NG/ML (<3.6)
[2023-02-20 09:58] LABS: MB/CK RELATIVE INDEX 12.61 (< OR =4)
[2023-02-20] MEDS ORDERED: FUROSEMIDE 40MG/4ML VIAL IV ONE (10:15)
[2023-02-20] MEDS ORDERED: LOMOTIL 2.5MG/0.025MG TABLET PO PRN (11:50)
[2023-02-20] MEDS ORDERED: FLUTICASONE PROP 0.05% NASAL SPRAY 16 GM (FLONASE) NARES PRN (11:50)
[2023-02-20] MEDS ORDERED: GLUCAGON INJ 1MG VIAL SC PRN (11:55)
[2023-02-20] MEDS ORDERED: GLUCOSE 4GM CHEW TABLET PO PRN (11:55)
[2023-02-20 12:31] LABS: CALCIUM LEVEL 7.9 MG/DL (8.3-10.6); CREATININE FOR GFR 2.46 MG/DL (0.70-1.30); GLOMERULAR FILTRATION RATE 27.2 (>42); POTASSIUM SERUM 4.8 MMOL/L (3.5-5.1)
[2023-02-20] MEDS: POTASSIUM CHLORIDE 10MEQ SR TABLET PO SCH (12:32)
[2023-02-20] MEDS: PRAVASTATIN 20 MG TAB PO SCH (12:33)
[2023-02-20] MEDS: ASPIRIN 81MG ENTERIC TABLET PO SCH (12:35)
[2023-02-20] MEDS: CLOPIDOGREL 75 MG TAB PO SCH (13:18)
[2023-02-20] MEDS: INSULIN LISPRO (NovoLOG) PER UNIT SC SCH ×2 (13:19→18:41)
[2023-02-20 13:37] LABS: CK-MB VALUE MASS 10.9 NG/ML (<3.6)
[2023-02-20 13:38] LABS: MB/CK RELATIVE INDEX 12.11 (< OR =4)
[2023-02-20] MEDS ORDERED: ISOSORBIDE DIN. (ISORDIL) 20 MG TAB PO SCH (16:00)
[2023-02-20] MEDS ORDERED: **hydrALAZINE** 50 MG TAB PO SCH (16:00)
[2023-02-20] MEDS ORDERED: HYDROCORTISONE 100MG/2ML VIAL IV ONE (16:30)
[2023-02-20] MEDS ORDERED: FUROSEMIDE 100MG/10ML VIAL IV SCH (17:00)
[2023-02-20] MEDS ORDERED: fentaNYL 100 MCG/2 ML INJECTION As Ordered ONE (17:27)
[2023-02-20] MEDS ORDERED: MIDAZOLAM INJ 2MG/2ML VIAL As Ordered ONE ×2 (17:27→17:30)
[2023-02-20] MEDS ORDERED: MIDAZOLAM 100MG/100ML-0.9%NACL 100 MG in IV 1 EA IV SCH (17:40)
[2023-02-20] MEDS ORDERED: FENTANYL DRIP LOCK BOX KEY 1 EACH XX PRN (17:40)
[2023-02-20] MEDS: fentaNYL CITRATE/NaCl 1,000 MCG in IV 1 EA IV SCH ×2 (17:55→18:47)
[2023-02-20 18:04] LABS: ABG BASE EXCESS -9.1 (-2.0-2.0); ABG HCO3 15.4 MMOL/L (22.0-26.0); ABG O2 SATURATION 99.7 % (95.0-99.0); ABG PARTIAL PRESSURE CO2 28.6 mmHg (35.0-45.0); ABG STANDARD HCO3 17.1 MMOL/L. (22.0-26.0); ABG TOTAL CO2 16.2 MMOL/L (23.0-31.0); ABG pH (ARTERIAL) 7.348 UNITS (7.350-7.450)
[2023-02-20] MEDS ORDERED: VASOPRESSIN INJ 20UNITS/ML 1ML VIAL As Ordered ONE (18:09)
[2023-02-20 18:21] LABS: CK-MB VALUE MASS 10.6 NG/ML (<3.6)
[2023-02-20 18:23] LABS: MB/CK RELATIVE INDEX 10.19 (< OR =4)
[2023-02-20] MEDS ORDERED: VANCOMYCIN HCL 750 MG, VIAL MATE ADAPTER 1 EACH in D5W 250 ML IV SCH (18:50)
[2023-02-20] MEDS ORDERED: VASOPRESSIN INJ 20 UNITS in NS 499 ML IV SCH (19:00)
[2023-02-20] MEDS ORDERED: EPINEPHrine 1MG/10ML SYRINGE 1.5IN ONE (20:03)
[2023-02-20] MEDS ORDERED: VANCOMYCIN HCL 750 MG, VIAL MATE ADAPTER 1 EACH in D5W 250 ML IV ONE (21:00)
[2023-02-20] MEDS ORDERED: INSULIN LISPRO (NovoLOG) PER UNIT SC SCH (21:00)
[2023-02-20] MEDS: NOREPINEPHRINE 4MG IN D5 250ML 4 MG in IV 1 EA IV SCH ×4 (21:22→22:15)
[2023-02-20] MEDS: PIPERACILLIN/TAZOBACTAM SOD 2.25 GM in D5W MINI-BAG PLUS 50 ML IV SCH (21:59)
[2023-02-20] MEDS: HEPARIN SOD (PORCINE) 5000UNITS/ML 1ML VIAL/SYRINGE SC SCH (21:59)
[2023-02-20] MEDS ORDERED: VANCOMYCIN HCL 500 MG in D5W MINI-BAG PLUS 100 ML IV ONE (22:00)
[2023-02-20 23:14] LABS: HEMATOCRIT 26.2 % (42.0-52.0); HEMOGLOBIN 8.3 g/dl (13.5-17.5); MEAN CORPUSCULAR HEMOGLOBIN 28.9 pg (27.0-33.0); MEAN CORPUSCULAR HGB CONC 31.7 g/dl (32.0-36.5); MEAN CORPUSCULAR VOLUME 91.3 fl (80.0-96.0); PLATELET COUNT, AUTOMATED 191 10^3/uL (150-450); RED BLOOD COUNT 2.87 10^6/uL (4.30-6.10); WHITE BLOOD COUNT 7.5 10^3/uL (4.0-10.0)
[2023-02-20 23:20] LABS: INR 1.38; PROTHROMBIN TIME 17.2 SECONDS (12.5-14.5)
[2023-02-20 23:21] LABS: PARTIAL THROMBOPLASTIN TIME 32.2 SECONDS (24.8-34.2)
[2023-02-20 23:43] LABS: ALBUMIN 2.4 G/DL (3.2-5.2); BILIRUBIN,TOTAL 0.6 MG/DL (0.3-1.2); CALCIUM LEVEL 7.9 MG/DL (8.3-10.6); CK-MB VALUE MASS 7.9 NG/ML (<3.6); CREATININE FOR GFR 2.6 MG/DL (0.70-1.30); GLOMERULAR FILTRATION RATE 25.5 (>42); MAGNESIUM LEVEL 2.2 MG/DL (1.8-2.4); MB/CK RELATIVE INDEX 11.61 (< OR =4); POTASSIUM SERUM 5.4 MMOL/L (3.5-5.1); TOTAL PROTEIN 4.8 G/DL (5.7-8.2)
[2023-02-21] VITALS (83 sets, daily range): BP systolic 81–135; BP diastolic 46–71; TEMP 97.3–98.8; O2SAT 72–100
[2023-02-21] MEDS: NOREPINEPHRINE 4MG IN D5 250ML 4 MG in IV 1 EA IV SCH ×10 (01:35→14:55)
[2023-02-21] MEDS: PIPERACILLIN/TAZOBACTAM SOD 2.25 GM in D5W MINI-BAG PLUS 50 ML IV SCH ×3 (02:35→13:35)
[2023-02-21] MEDS ORDERED: FUROSEMIDE 40MG/4ML VIAL IV ONE (03:00)
[2023-02-21 05:05] LABS: VANCOMYCIN RANDOM 19.3 UG/ML
[2023-02-21 05:06] LABS: CALCIUM LEVEL 7.8 MG/DL (8.3-10.6); CREATININE FOR GFR 2.58 MG/DL (0.70-1.30); GLOMERULAR FILTRATION RATE 25.8 (>42); MAGNESIUM LEVEL 2.1 MG/DL (1.8-2.4); POTASSIUM SERUM 5.1 MMOL/L (3.5-5.1)
[2023-02-21 05:07] LABS: ALBUMIN 2.3 G/DL (3.2-5.2); BILIRUBIN,TOTAL 0.6 MG/DL (0.3-1.2); CALCIUM LEVEL 7.2 MG/DL (8.3-10.6); CREATININE FOR GFR 2.58 MG/DL (0.70-1.30); GLOMERULAR FILTRATION RATE 25.8 (>42); TOTAL PROTEIN 4.6 G/DL (5.7-8.2)
[2023-02-21 05:10] LABS: HEMATOCRIT 25.3 % (42.0-52.0); HEMOGLOBIN 7.8 g/dl (13.5-17.5); MEAN CORPUSCULAR HEMOGLOBIN 28.1 pg (27.0-33.0); MEAN CORPUSCULAR HGB CONC 30.8 g/dl (32.0-36.5); PLATELET COUNT, AUTOMATED 175 10^3/uL (150-450); RED BLOOD COUNT 2.78 10^6/uL (4.30-6.10); WHITE BLOOD COUNT 7.6 10^3/uL (4.0-10.0)
[2023-02-21] MEDS ORDERED: LEVOTHYROXINE 100MCG TABLET (0.1MG) PO SCH (06:00)
[2023-02-21 06:02] LABS: ABG BASE EXCESS -7.9 (-2.0-2.0); ABG HCO3 16.4 MMOL/L (22.0-26.0); ABG O2 SATURATION 93.9 % (95.0-99.0); ABG PARTIAL PRESSURE CO2 28.9 mmHg (35.0-45.0); ABG PARTIAL PRESSURE O2 69.5 mmHg (75.0-100.0); ABG TOTAL CO2 17.3 MMOL/L (23.0-31.0); ABG pH (ARTERIAL) 7.372 UNITS (7.350-7.450)
[2023-02-21] MEDS: HEPARIN SOD (PORCINE) 5000UNITS/ML 1ML VIAL/SYRINGE SC SCH ×2 (06:10→17:13)
[2023-02-21] MEDS: INSULIN LISPRO (NovoLOG) PER UNIT SC SCH ×3 (08:33→17:14)
[2023-02-21] MEDS: POTASSIUM CHLORIDE 10MEQ SR TABLET PO SCH (08:34)
[2023-02-21] MEDS: PRAVASTATIN 20 MG TAB PO SCH (08:34)
[2023-02-21] MEDS: ASPIRIN 81MG ENTERIC TABLET PO SCH (08:34)
[2023-02-21] MEDS: CLOPIDOGREL 75 MG TAB PO SCH (08:34)
[2023-02-21] MEDS ORDERED: PANTOPRAZOLE 40MG VIAL IV SCH (09:00)
[2023-02-21] MEDS ORDERED: LEVEMIR (INSULIN DETEMIR) 1 UNITS/0.01ML SC SCH (09:00)
[2023-02-21] MEDS: FUROSEMIDE 40MG/4ML VIAL IV SCH ×2 (09:08→17:14)
[2023-02-21] MEDS ORDERED: MIDAZOLAM INJ 2MG/2ML VIAL IV PRN (10:30)
[2023-02-21] MEDS ORDERED: VANCOMYCIN HCL 750 MG, VIAL MATE ADAPTER 1 EACH in D5W 250 ML IV SCH (12:00)
[2023-02-21] MEDS: DEXTROSE 50% 50ML SYRINGE IV PRN ×2 (17:07→18:34)
[2023-02-21] MEDS ORDERED: LACTULOSE 20GM/30ML SYRUP UDC PR ONE (17:15)
[2023-02-21] MEDS ORDERED: ATROPINE SULFATE 1% OPHTH SOLN 2ML BTL SL PRN (19:25)
[2023-02-21] MEDS ORDERED: FLEET ENEMA PR PRN (19:25)
[2023-02-21] MEDS ORDERED: LORazepam 2 MG/ML 1ML VIAL IV PRN (19:25)
[2023-02-21] MEDS ORDERED: SCOPOLAMINE 1MG TRANSDERMAL PATCH TOP PRN (19:25)
[2023-02-21] MEDS ORDERED: HYOSCYAMINE SULFATE 0.125 MG SUBL TABLET PO PRN (19:25)
[2023-02-21] MEDS ORDERED: ACETAMINOPHEN TAB 650MG DOSE (2X325MG) PO PRN (19:25)
[2023-02-21] MEDS ORDERED: MORPHINE 2 MG/ML 1ML VIAL IV PRN (19:25)
[2023-02-21] MEDS ORDERED: ACETAMINOPHEN 650MG SUPP PR PRN (19:25)
[2023-02-21] MEDS ORDERED: BISACODYL 10MG SUPP PR PRN (19:25)
[2023-02-21] MEDS ORDERED: ONDANSETRON 4MG 2ML VIAL IV PRN (19:25)
[2023-02-21] MEDS ORDERED: ONDANSETRON 4MG ORAL DISINTEGRATING TAB PO PRN (19:25)
[2023-02-21] MEDS: ALBUTEROL SULFATE 2.5MG/0.5ML INH NEB SOLN NEB SCH ×2 (20:03→23:09)
[2023-02-22] MEDS: ALBUTEROL SULFATE 2.5MG/0.5ML INH NEB SOLN NEB SCH ×6 (03:00→23:22)
[2023-02-22] MEDS: MORPHINE 10MG/0.5ML ORAL CONCENTRATE SOLUTION U/D SL PRN ×7 (05:32→23:37)
[2023-02-22] MEDS: FUROSEMIDE 40MG/4ML VIAL IV SCH (09:26)
[2023-02-22] MEDS: LORazepam 1 MG TAB PO PRN ×4 (09:26→18:18)
[2023-02-22] MEDS ORDERED: guaiFENesin/CODEINE SYRUP 5 ML UDC PO PRN (15:35)
[2023-02-23] MEDS ORDERED: LORazepam 2 MG/ML 1ML VIAL IV STA (01:56)
[2023-02-23] MEDS: MORPHINE 10MG/0.5ML ORAL CONCENTRATE SOLUTION U/D SL PRN ×3 (01:56→05:53)
[2023-02-23] MEDS: ALBUTEROL SULFATE 2.5MG/0.5ML INH NEB SOLN NEB SCH ×5 (04:00→20:33)
[2023-02-23] MEDS: LORazepam 1 MG TAB PO PRN (08:46)
[2023-02-23] MEDS: MORPHINE 2 MG/ML 1ML VIAL IV PRN ×2 (12:30→22:00)
[2023-02-23] MEDS: LORazepam 2 MG/ML 1ML VIAL IV PRN ×3 (15:57→23:19)
[2023-02-24] MEDS: ALBUTEROL SULFATE 2.5MG/0.5ML INH NEB SOLN NEB SCH (00:07)
== END 2023-02-24 03:30 | disposition expired | DRG 291 ==
LOC: M ED 07:50 → M ED INP 11:09 → ENRESERV 14:05 → M PCU 15:15 → M ICU 17:42 → M MSPAV 02-23 17:54
PROVIDERS: ADMIT Internal Medicine; ATTEND Internal Medicine
PROC: 5A1935Z Respiratory Ventilation, Less than 24 Consecutive Hours (ICD-10-PCS; principal; 2023-02-20)
DX: I13.0 Hypertensive heart and chronic kidney disease with heart failure and stage 1 through stage 4 chronic kidney disease, or unspecified chronic kidney disease (principal); I50.23 Acute on chronic systolic (congestive) heart failure; J96.01 Acute respiratory failure with hypoxia; J18.9 Pneumonia, unspecified organism; G93.41 Metabolic encephalopathy; N17.9 Acute kidney failure, unspecified; K51.90 Ulcerative colitis, unspecified, without complications; E87.20 Acidosis, unspecified; E87.1 Hypo-osmolality and hyponatremia; J98.11 Atelectasis; I46.9 Cardiac arrest, cause unspecified; E03.9 Hypothyroidism, unspecified; E11.22 Type 2 diabetes mellitus with diabetic chronic kidney disease; N18.30 Chronic kidney disease, stage 3 unspecified; E11.51 Type 2 diabetes mellitus with diabetic peripheral angiopathy without gangrene; D64.9 Anemia, unspecified; I25.10 Atherosclerotic heart disease of native coronary artery without angina pectoris; E78.5 Hyperlipidemia, unspecified; Z79.4 Long term (current) use of insulin; K21.9 Gastro-esophageal reflux disease without esophagitis; I25.2 Old myocardial infarction; Z95.810 Presence of automatic (implantable) cardiac defibrillator; Z95.1 Presence of aortocoronary bypass graft; E87.5 Hyperkalemia; R57.0 Cardiogenic shock